=== PATIENT | male | born 1965 | race Caucasian/White ===

== ENCOUNTER → 2018-02-14 15:52 | Outpatient (CLI) | payer OTHER, SELFPAY ==
[2018-02-14 17:38] LABS: Anion Gap 10 (5-15); BUN 17 mg/dL (7-18); BUN/Creat Ratio 17.7 RATIO (10-20); Calcium,Total 9.3 mg/dL (8.5-10.1); Chloride 102 mmol/L (98-107); Creatinine, Serum 0.96 mg/dL (0.70-1.30); EST Glomerular Filtration Rate 87 mL/min (>60); Est Glom Filt Rate - Afr Amer 105 mL/min (>60); Glucose 170 mg/dL (74-106); Potassium 4.3 mmol/L (3.5-5.1); Sodium Level 140 mmol/L (136-145)
== END ==
PROVIDERS: Family Provider Family Medicine; PCP Family Medicine; Visit Provider Family Medicine
DX: I10 Essential (primary) hypertension (principal); E11.65 Type 2 diabetes mellitus with hyperglycemia
CPT/HCPCS: 36415; 80048

== ENCOUNTER 2018-08-18 21:16 | Emergency (ER) | payer OTHER, SELFPAY ==
[2018-08-18 21:18] VITALS: BP 121/70; PULSE 85; RESP 17; TEMP 36.8; O2SAT 95; BMI 25.8
--- NOTE | 2018-08-18 23:14 | EKG12_ITS ---
Test Reason : SOB Blood Pressure : / mmHG Vent. Rate : 074 BPM Atrial Rate : 074 BPM P-R Int : 172 ms QRS Dur : 094 ms QT Int : 364 ms P-R-T Axes : 064 030 069 degrees QTc Int : 404 ms Normal sinus rhythm Normal ECG Confirmed by LALY HERRON, NA ([id number]), fan mail editor MARVIN DIEGO ([id number]) on 08/20/2018 3:23:53 PM Referred By: ANALISA Confirmed By:NA RUFFIN MD
--- NOTE | 2018-08-18 23:18 | ED.RN ---
NO OLD EKGS IN MUSE
[2018-08-18] MEDS: Ipratropium/Albuterol Sulfate 3 ML AMPUL.NEB INHALATION (23:21)
--- NOTE | 2018-08-18 23:21 | RAD_ITS ---
STUDY: X-RAY CHEST REASON FOR EXAM: Male, 52 years old. Cough for a few weeks. TECHNIQUE: PA and lateral views of the chest. COMPARISON: May 31, 2017. FINDINGS: Telemetry wires overlie the chest. The lungs are clear and expanded. There is no demonstrated pleural abnormality. Normal size heart. Normal mediastinum and zay. Normal visualized pulmonary arteries. Normal visualized aortic arch and descending thoracic aorta. Normal visualized thoracic spine. Normal visualized ribs, clavicles, and shoulders. There is no demonstrated abnormality of the visualized soft tissue structures of the upper abdomen. RAD/Chest PA and Lateral IMPRESSION: No acute cardiopulmonary disease or interval change. Electronically Signed: Raheel Velazco DO at 23:34 EST Tel [phone], Service support ,
[2018-08-18] MEDS: predniSONE 20 MG Tablet 60 MG PO (23:22)
[2018-08-18 23:28] VITALS: BP 121/83; PULSE 70; RESP 18; O2SAT 99
[2018-08-18 23:34] VITALS: PULSE 80; RESP 14
--- NOTE | 2018-08-18 23:52 | ED.DCSUM_ITS ---
- ER Visit Summary Date of Service: 08/18/18 Chief Complaint: [] History of Present Illness: The patient is a 52 M cough presents to the emergency department cough. Patient had the symptoms for the past 2 weeks. He states he feels it is worsening. He had one episode of near syncope with cough. He denies any chest pain. He has had some scant sputum. He denies any fevers or chills. He denies any history of underlying lung disease. He has been exposed to multiple people with similar upper respiratory infection. He has not found anything that improved the symptoms. Physical Examination: Vital signs reviewed General: Well-nourished, well-developed Head: Normocephalic, atraumatic Eyes: Pupils equal and reactive, extraocular muscles intact Neck, supple, no lymphadenopathy Heart: Regular rate and rhythm Respiratory: No distress, wheezing throughout erally Abdomen: Soft, nontender, nondistended, no peritoneal signs Back: Nontender Extremities: Nontender, no edema, no cords Skin: Normal color no rash Neuro: Alert and oriented, no focal or lateralizing deficits Test Results: [] Emergency Department Course and Treatment: The patient presents with cough. I did obtain a chest x-ray. There is no evidence of focal infiltrative process. He did have some scant change in the left base. He was given nebulized breathing treatment and steroids. He does have improvement of his symptoms. I do feel the patient's symptoms are likely secondary to bronchitis. I would treat him with doxycycline and prednisone. He will also be given an inhaler. The patient be discharged home. Treatment Plan: [] Disposition: Discharge Impression: 1. Acute bronchitis This note was generated with [employer] dictation software. It may contain incorrect words, spelling, and punctuation that were not noted in review of the chart prior to signing ED Disposition - Plan for ED Patient: Chief Complaint: Cough Instructions: ED Upper Resp Infec Abx Tx Prescriptions: Albuterol Inhaler [Ventolin Hfa] 2 puff INHALATION Q4H PRN PRN #1 inhaler PRN Reason: Wheezing Prednisone 10 mg PO UD #33 tab Doxycycline 100 mg PO BID #20 cap Referrals: Johnathan Johnson MD [Primary Care Provider] -
[2018-08-18] MEDS: Doxycycline 100 MG CAPSULE PO (23:59)
[2018-08-19] VITALS: BP 126/79; PULSE 79; RESP 16; O2SAT 94
== END 2018-08-19 00:02 | disposition home or self-care (01) ==
LOC: ED 23:32
PROVIDERS: Emergency Provider Emergency Medicine; Family Provider Family Medicine; PCP Family Medicine
DX: J20.9 Acute bronchitis, unspecified (principal); E11.9 Type 2 diabetes mellitus without complications; Z79.84 Long term (current) use of oral hypoglycemic drugs; Z79.899 Other long term (current) drug therapy; Z87.891 Personal history of nicotine dependence
CPT/HCPCS: 71046; 93005; 94640; 99284

== ENCOUNTER → 2019-03-30 08:38 | Outpatient (CLI) | payer BC, SELFPAY ==
[2019-03-30 12:17] LABS: Absolute Lymphocyte Count 1.56 X10^3/uL (0.83-4.51); Absolute Neutrophil Count 3.3 X10^3/uL (2.0-7.7); Basophil# 0.05 X10^3/uL; Basophil% 0.9 % (0-1); Eosinophil# 0.15 X10^3/uL; Eosinophils% 2.7 % (0-5); Hematocrit 43.4 % (40-54); Hemoglobin 15.1 g/dL (13.0-16.5); Lymphocyte # 1.56 X10^3/ul (4.0); Lymphocyte % 28.4 % (19-41); Mean Corp Hgb Conc 34.8 g/dL (32-36); Mean Corpuscular Hgb 29.6 pg (27.0-32.0); Mean Corpuscular Volume 85.1 fL (80-94); Mean Platelet Vol. 10.1 fl (6.2-12.0); Monocyte# 0.43 X10^3/uL; Monocyte% 7.8 % (0-10); NRBC Flagged by Analyzer 0 % (0-5); Neutrophil # 3.28 X10^3/uL (2.7-7.7); Neutrophil % 59.8 % (47-70); Platelet Count 253 K/mm3 (150-450); RBC Distribution Width CV 12.6 % (11.6-14.6); RBC Distribution Width SD 38.5 fl (35.1-43.9); White Blood Count 5.5 K/mm3 (4.4-11.0)
[2019-03-30 12:43] LABS: Anion Gap 6 (5-15); BUN 17 mg/dL (7-18); BUN/Creat Ratio 18.3 RATIO (10-20); Calcium,Total 9.2 mg/dL (8.5-10.1); Chloride 108 mmol/L (98-107); Creatinine, Serum 0.93 mg/dL (0.70-1.30); EST Glomerular Filtration Rate 90 mL/min (>60); Est Glom Filt Rate - Afr Amer 109 mL/min (>60); Glucose 222 mg/dL (74-106); Potassium 4.3 mmol/L (3.5-5.1); Sodium Level 140 mmol/L (136-145); Thyroid Stim Hormone (TSH) 1.47 uIU/mL (0.358-3.74)
== END ==
PROVIDERS: Family Provider Family Medicine; PCP Family Medicine; Visit Provider Family Medicine
DX: I10 Essential (primary) hypertension (principal); E78.5 Hyperlipidemia, unspecified; R42 Dizziness and giddiness
CPT/HCPCS: 36415; 80048; 84443; 85025

== ENCOUNTER → 2020-06-20 08:41 | Outpatient (CLI) | payer BC, SELFPAY ==
[2020-06-20 08:13] VITALS: BMI 25.0
[2020-06-20 13:02] LABS: ALB/GLOB Ratio 1.4 RATIO (0.9-2.4); AST(SGOT) 23 U/L (15-37); Alanine Aminotransfer ALT/SGPT 53 U/L (16-61); Albumin, Serum 4.5 g/dL (3.2-5.0); Alkaline Phosphatase 76 U/L (45-117); Anion Gap 7 (5-15); BUN 21 mg/dL (7-18); BUN/Creat Ratio 22.9 RATIO (10-20); Calcium,Total 9.6 mg/dL (8.5-10.1); Chloride 109 mmol/L (98-107); Cholesterol 160 mg/dL (200); Creatinine, Serum 0.92 mg/dL (0.70-1.30); EST Glomerular Filtration Rate 90 mL/min (>60); Est Glom Filt Rate - Afr Amer 109 mL/min (>60); Globulin 3.3 g/dL (2.2-4.2); Glucose 99 mg/dL (74-106); High Density Lipoprotein 44 mg/dL; Protein, Total 7.8 g/dL (6.4-8.2); Sodium Level 141 mmol/L (136-145); Triglycerides 90 mg/dL; Very Low Density Lipoprotein 18 mg/dL (5-40)
[2020-06-20 14:28] LABS: Microalbumin,Random Urine 10.6 mg/L (NO RANGE EST.); Microalbumin:Creatinine Ratio 14.8 mg/g CRE (<30 mg/g CRE)
== END ==
PROVIDERS: PCP Family Medicine; Referring Provider Internal Medicine Endocrinology, Diabetes & Metabolism; Visit Provider Internal Medicine Endocrinology, Diabetes & Metabolism
DX: E11.9 Type 2 diabetes mellitus without complications (principal); E78.2 Mixed hyperlipidemia
CPT/HCPCS: 36415; 80053; 80061; 82043; 82570; 84443

== ENCOUNTER → 2022-10-29 | Outpatient (CLI) | payer OTHER, SELFPAY ==
[2022-10-29 12:16] LABS: Vitamin D,25 Hydroxy 47.2 ng/mL
[2022-10-29 12:48] LABS: ALB/GLOB Ratio 1.5 RATIO (0.9-2.4); AST(SGOT) 22 U/L (15-37); Alanine Aminotransfer ALT/SGPT 42 U/L (16-61); Albumin, Serum 4.6 g/dL (3.2-5.0); Alkaline Phosphatase 68 U/L (45-117); Anion Gap 11 (5-15); BUN 23 mg/dL (7-18); BUN/Creat Ratio 24.3 RATIO (10-20); Calcium,Total 9.7 mg/dL (8.5-10.1); Chloride 106 mmol/L (98-107); Cholesterol 142 mg/dL (200); Creatinine, Serum 0.94 mg/dL (0.70-1.30); EST Glomerular Filtration Rate 87 mL/min (>60); Est Glom Filt Rate - Afr Amer 105 mL/min (>60); Glucose 158 mg/dL (74-106); High Density Lipoprotein 36 mg/dL; Protein, Total 7.6 g/dL (6.4-8.2); Sodium Level 138 mmol/L (136-145); Thyroid Stim Hormone (TSH) 1.82 uIU/mL (0.358-3.74); Triglycerides 141 mg/dL; Very Low Density Lipoprotein 28 mg/dL (5-40)
== END | disposition home or self-care (01) ==
PROVIDERS: Referring Provider Internal Medicine Endocrinology, Diabetes & Metabolism; Visit Provider Internal Medicine Endocrinology, Diabetes & Metabolism
DX: E11.9 Type 2 diabetes mellitus without complications (principal); E78.2 Mixed hyperlipidemia; E55.9 Vitamin D deficiency, unspecified
CPT/HCPCS: 36415; 80053; 80061; 82306; 84443

== ENCOUNTER → 2022-10-30 | Outpatient (CLI) | payer OTHER, SELFPAY ==
[2022-10-30 12:41] LABS: Microalbumin,Random Urine 16.8 mg/L (NO RANGE EST.); Microalbumin:Creatinine Ratio 16.2 mg/g CRE (<30 mg/g CRE)
== END | disposition home or self-care (01) ==
PROVIDERS: Referring Provider Internal Medicine Endocrinology, Diabetes & Metabolism; Visit Provider Internal Medicine Endocrinology, Diabetes & Metabolism
DX: E11.9 Type 2 diabetes mellitus without complications (principal); E78.2 Mixed hyperlipidemia
CPT/HCPCS: 82043; 82570

== ENCOUNTER → 2023-11-04 | Outpatient (CLI) | payer OTHER, SELFPAY ==
[2023-11-04 13:44] LABS: ALB/GLOB Ratio 1.7 RATIO (0.9-2.4); AST(SGOT) 23 U/L (15-37); Alanine Aminotransfer ALT/SGPT 43 U/L (16-61); Albumin, Serum 4.5 g/dL (3.2-5.0); Alkaline Phosphatase 67 U/L (45-117); Anion Gap 4 (5-15); BUN 14 mg/dL (7-18); BUN/Creat Ratio 17.2 RATIO (10-20); Calcium,Total 8.7 mg/dL (8.5-10.1); Chloride 109 mmol/L (98-107); Cholesterol 145 mg/dL (200); Creatinine, Serum 0.82 mg/dL (0.70-1.30); EST Glomerular Filtration Rate 102 mL/min (>60); Est Glom Filt Rate - Afr Amer 124 mL/min (>60); Globulin 2.7 g/dL (2.2-4.2); Glucose 149 mg/dL (74-106); High Density Lipoprotein 41 mg/dL; Potassium 3.8 mmol/L (3.5-5.1); Protein, Total 7.2 g/dL (6.4-8.2); Sodium Level 141 mmol/L (136-145); Thyroid Stim Hormone (TSH) 1.78 uIU/mL (0.358-3.74); Triglycerides 72 mg/dL; Very Low Density Lipoprotein 14 mg/dL (5-40)
[2023-11-04 14:21] LABS: Absolute Neutrophil Count 3.2 X10^3/uL (2.0-7.7); Basophil# 0.05 X10^3/uL; Basophil% 0.9 % (0-1); Eosinophil# 0.16 X10^3/uL; Eosinophils% 2.8 % (0-5); Hematocrit 46.1 % (40-54); Hemoglobin 15.4 g/dL (13.0-16.5); Mean Corp Hgb Conc 33.4 g/dL (32-36); Mean Corpuscular Hgb 29.1 pg (27.0-32.0); Monocyte# 0.46 X10^3/uL; NRBC Flagged by Analyzer 0 % (0-5); Neutrophil # 3.16 X10^3/uL (2.7-7.7); Neutrophil % 54.8 % (47-70); Platelet Count 241 K/mm3 (150-450); RBC Distribution Width CV 13.3 % (11.6-14.6); RBC Distribution Width SD 41.7 fl (35.1-43.9); White Blood Count 5.8 K/mm3 (4.4-11.0)
[2023-11-04 14:52] LABS: Microalbumin,Random Urine 8.8 mg/L (NO RANGE EST.); Microalbumin:Creatinine Ratio 13.5 mg/g CRE (<30 mg/g CRE)
== END | disposition home or self-care (01) ==
LOC: BIMLAB 08:42
PROVIDERS: Nurse Practitioner Family; Referring Provider Internal Medicine Endocrinology, Diabetes & Metabolism; Visit Provider Internal Medicine Endocrinology, Diabetes & Metabolism
DX: R53.83 Other fatigue (principal); E11.9 Type 2 diabetes mellitus without complications; E78.2 Mixed hyperlipidemia; I10 Essential (primary) hypertension
CPT/HCPCS: 36415; 80053; 80061; 82043; 82570; 84443; 85025

== ENCOUNTER → 2024-05-11 | Outpatient (CLI) | payer OTHER, SELFPAY ==
[2024-05-11 12:08] LABS: Absolute Neutrophil Count 3.7 X10^3/uL (2.0-7.7); Basophil# 0.05 X10^3/uL; Basophil% 0.8 % (0-1); Eosinophil# 0.17 X10^3/uL; Eosinophils% 2.7 % (0-5); Hematocrit 46.3 % (40-54); Hemoglobin 15.5 g/dL (13.0-16.5); Lymphocyte % 28.5 % (19-41); Mean Corp Hgb Conc 33.5 g/dL (32-36); Mean Corpuscular Hgb 29.3 pg (27.0-32.0); Mean Corpuscular Volume 87.5 fL (80-94); Monocyte# 0.56 X10^3/uL; Monocyte% 8.9 % (0-10); NRBC Flagged by Analyzer 0 % (0-5); Neutrophil # 3.68 X10^3/uL (2.7-7.7); Neutrophil % 58.3 % (47-70); Platelet Count 251 K/mm3 (150-450); RBC Distribution Width CV 13.4 % (11.6-14.6); RBC Distribution Width SD 42.3 fl (35.1-43.9); Red Blood Count 5.29 M/mm3 (4.6-6.2); White Blood Count 6.3 K/mm3 (4.4-11.0)
[2024-05-11 12:55] LABS: Vitamin B12 504 pg/mL (211-911)
[2024-05-11 13:17] LABS: ALB/GLOB Ratio 1.6 RATIO (0.9-2.4); AST(SGOT) 18 U/L (15-37); Alanine Aminotransfer ALT/SGPT 42 U/L (16-61); Albumin, Serum 4.6 g/dL (3.2-5.0); Alkaline Phosphatase 85 U/L (45-117); Anion Gap 5 (5-15); BUN 13 mg/dL (7-18); BUN/Creat Ratio 15.9 RATIO (10-20); Chloride 107 mmol/L (98-107); Cholesterol 143 mg/dL (200); Creatinine, Serum 0.82 mg/dL (0.70-1.30); EST Glomerular Filtration Rate 102 mL/min (>60); Est Glom Filt Rate - Afr Amer 124 mL/min (>60); Globulin 2.8 g/dL (2.2-4.2); Glucose 126 mg/dL (74-106); High Density Lipoprotein 43 mg/dL; PSA,Total - Annual Screen 0.46 ng/mL (0.00-4.00); Potassium 4.2 mmol/L (3.5-5.1); Protein, Total 7.4 g/dL (6.4-8.2); Sodium Level 141 mmol/L (136-145); Triglycerides 196 mg/dL; Very Low Density Lipoprotein 39 mg/dL (5-40)
== END | disposition home or self-care (01) ==
LOC: BIMLAB 10:36
PROVIDERS: Internal Medicine Endocrinology, Diabetes & Metabolism; PCP Nurse Practitioner Family; Referring Provider Nurse Practitioner Family; Visit Provider Nurse Practitioner Family
DX: Z00.01 Encounter for general adult medical examination with abnormal findings (principal); Z12.5 Encounter for screening for malignant neoplasm of prostate
CPT/HCPCS: 36415; 80053; 80061; 82607; 84153; 85025; G0103

== ENCOUNTER 2024-09-29 13:48 | Emergency (ER) | payer OTHER, SELFPAY ==
[2024-09-29 13:49] VITALS: BP 193/89; PULSE 72; RESP 16; TEMP 36.6; O2SAT 97; BMI 26.4
--- NOTE | 2024-09-29 14:45 | RAD_ITS ---
PROCEDURE: HAND MIN 3 VIEWS REASON FOR EXAM: Injury TECHNIQUE: 3 view(s) of the left hand COMPARISON: None. FINDINGS: No visible fracture. No suspicious bone lesion. Normal alignment. Soft tissues are unremarkable. RAD/Hand Min 3 Views IMPRESSION: No acute osseous abnormality in the left hand Reading Location: [facility]
[2024-09-29 15:45] VITALS: PULSE 67; RESP 16; O2SAT 96
--- NOTE | 2024-09-29 15:56 | EDS_ITS ---
HPI History of Present Illness Chief Complaint: Laceration [facility] Medical History GERD (gastroesophageal reflux disease) High cholesterol Hypertension Gout Diabetes Home Medications ?Medication ?Instructions ?Recorded ?Last Taken ?Type multivitamin 1 ea PO DAILY 04/27/17 Unkno wn History Zinc PO 05/11/24 Unknown History atorvastatin 20 mg tablet 20 mg PO DAILY #90 tabs 04/14 Unknown Rx coenzyme Q10 100 mg capsule 100 mg PO QDAY 05/11/24 Un known History dapagliflozin propanediol 10 mg 10 mg PO DAILY #90 tab s 05/11/24 Unknown Rx tablet (Farxiga) glipizide 5 mg tablet, extended 5 mg PO BID #180 tabs 05/11/24 Unknown Rx release 24 hr lisinopril 40 mg tablet 40 mg PO QDAY #90 tabs 05/11 Unknown Rx metformin 500 mg 24 hr 1,000 mg (2 x 500 mg) PO BID #360 05/11/24 Unknown Rx tablet,extended release (gastric tabs
--- NOTE | 2024-09-29 15:56 | EX.ED.GENINJ ---
HPI History of Present Illness Chief Complaint: Laceration [facility] Medical History GERD (gastroesophageal reflux disease) High cholesterol Hypertension Gout Diabetes Home Medications ?Medication ?Instructions ?Recorded ?Last Taken ?Type multivitamin 1 ea PO DAILY 04/27/17 Unknown History Zinc PO 05/11/24 Unknown History atorvastatin 20 mg tablet 20 mg PO DAILY #90 tabs 05/11/24 Unknown Rx coenzyme Q10 100 mg capsule 100 mg PO QDAY 05/11/24 Unknown History dapagliflozin propanediol 10 mg 10 mg PO DAILY #90 tabs 05/11/24 Unknown Rx tablet (Farxiga) glipizide 5 mg tablet, extended 5 mg PO BID #180 tabs 05/11/24 Unknown Rx release 24 hr lisinopril 40 mg tablet 40 mg PO QDAY #90 tabs 05/11/24 Unknown Rx metformin 500 mg 24 hr 1,000 mg (2 x 500 mg) PO BID #360 05/11/24 Unknown Rx tablet,extended release (gastric tabs retention) sitagliptin phosphate 100 mg 100 mg PO DAILY #90 tabs 05/11/24 Unknown Rx tablet (Januvia) omeprazole 20 mg capsule,delayed 20 mg PO DAILY #90 caps 07/21/24 Unknown Rx release cephalexin 500 mg capsule 500 mg PO TID 3 days #9 caps 09/29/24 Unknown Rx Allergy/AdvReac Type Severity Reaction Status Date / Time bee venom protein (honey Allergy Intermediate Swelling Verified 09/29/24 13:48 bee) (bees) cobalt Allergy Intermediate rash Verified 09/29/24 13:48 nickel Allergy Intermediate rash Verified 09/29/24 13:48 Family History Mother Diabetes Hypertension High cholesterol Grandmother Diabetes Father Hypertension Kidney disease Social History Smoking Status: Former smoker quit date: 08/12/16 alcohol intake: never substance use type: does not use what type of physical activity do you participate in: none EXAM Physical Exam Const Vital Signs: 09/29/24 13:49 09/29/24 15:45 Temperature 98 F Temperature Source Temporal Pulse Rate 72 67 Respiratory Rate 16 16 Blood Pressure 193/89 H Blood Pressure Mean 123 Pulse Ox 97 96 Oxygen Delivery Method Room Air Room Air [facility] [place] Narrative Medical decision making narrative: HISTORY OF PRESENT ILLNESS: 58-year-old male presents with concern for laceration to left third finger. Notes this occurred at approximately 10:40 AM. Notes he cut it on a piece of clean steel. Notes difficulty with movement. And tingling. Denies numbness. REVIEW OF SYSTEMS: Pertinent positives: Laceration, deep range of motion, tingling Pertinent negatives: Loss of sensation PHYSICAL EXAM: Nursing triage notes reviewed, Vital signs reviewed Constitutional: please see mdm Extremities: No edema Neuro: Intact 5/5 strength with ok sign (median), intact finger abduction (ulnar) intact wrist extension (radial n). Intact sensation in the radial, ulnar, and median nerve distributions. Skin: Curvilinear approximately 2 cm laceration over the third metacarpal phalangeal joint MEDICAL DECISION MAKING: Chief Complaint: Hand laceration External records reviewed: Reviewed prior images Factors affecting care: Type 2 diabetes Consults: none [facility] Narrative: Patient was initially hypertensive otherwise afebrile and nontoxic-appearing. Exam with decreased extensor tendon function of the left third digit. I considered the following differential diagnosis: Laceration, fracture ALL IMAGES (IF OBTAINED) HAVE BEEN PERSONALLY REVIEWED AND INTERPRETED BY MYSELF. X-ray left hand was read reviewed personally so showed no evidence of obvious open fracture The patient suffered lacerations to the left third digit On exam there was no evidence of foreign bodies. There was no evidence of neurovascular injury. Patient had a normal distal vascular exam, and had intact ROM and sensation. Exam limited by pain, there was diminished extensor tendon function There is no evidence of local joint space involvement at this time. Wound care applied (irrigation and/or local cleansing solution). Laceration repair was then performed please see procedure note. The patient was given signs and symptoms warnings for infection, such as increasing pain, redness, swelling, associated heat, pus or fever. Patient was given instructions for timely follow-up for removal. Patient agreed with the plan of care Procedure: Laceration repair. The procedure was performed by myself. Indication: Wound repair Risks and benefits: risks, benefits and alternatives were discussed Consent: Consent was obtained. Wound Details: 2 cm, curvilinear, dorsal surface of the left hand, third metacarpophalangeal joint, proximal millimeter in depth, no obvious fascial disruption. No foreign bodies noted. Anesthesia: Topical let, lidocaine injected to the margin of the wound (verbal consent obtained from patient). Wound prep: Patient was prepped and draped in the usual sterile fashion. Tetanus: Updated within the last 5 years Irrigation Solution: Saline Wound Preparation: Irrigated with normal saline, cleansed with chlorhexidine The wound was explored to its base in a bloodless field. Procedure Description: Placed five 5-0 Chromic Gut sutures with good approximation. Patient tolerated the procedure well with no immediate complications Given concern for tendinous involvement I am for the patient to follow-up with our local hand surgeon within the next 24 to 48 hours if possible. Gave a short course of Keflex for antimicrobial prophylaxis. Strict return precautions were discussed. [facility] paperwork completed. The patient and/or family, caregivers express understanding. The patient and/or family, caregivers agrees with the plan. Shared decision making: I will have a discussion with the patient and or visitors regarding risk/benefits of further testing or admission. They will be made aware of of the risk/benefits inherent in this decision they will be given the opportunity to voice understanding. Total critical care time today provided was at least 0 minutes. This excludes separately billable procedures. Critical care time (if documented) is secondary to the patient having high probability of clinically significant/life threatening deterioration in the patient's condition which required my urgent intervention. Impression: 1. Left hand laceration 2. Extensor tendon disruption Dispo: Discharge home This note was generated with [employer] dictation software. It may contain incorrect words, spelling, and punctuation that were not noted in review of the chart prior to signing. Radiography Diagnostic Testing: Clinical Impression(s) from Imaging Studies Hand X-Ray 09/29/24 14:45 IMPRESSION: No acute osseous abnormality in the left hand Reading Location: [facility] Discharge Plan Triage Chief Complaint: Laceration ED Provider: Conrad Almendarez Dx/Rx/DC Orders Instructions: ED Laceration Extremity, ED Tendon Rupture, Finger Prescriptions: New cephalexin 500 mg capsule 500 mg PO TID 3 Days Qty: 9 0RF No Action coenzyme Q10 100 mg capsule 100 mg PO QDAY Zinc PO glipizide 5 mg tablet extended release 24hr 5 mg PO BID Qty: 180 3RF Farxiga 10 mg tablet 10 mg PO DAILY Qty: 90 2RF atorvastatin 20 mg tablet 20 mg PO DAILY Qty: 90 1RF lisinopril 40 mg tablet 40 mg PO QDAY Qty: 90 1RF metformin 500 mg tablet,ER reji.retention 24 hr 1,000 mg PO BID Qty: 360 1RF Januvia 100 mg tablet 100 mg PO DAILY Qty: 90 1RF multivitamin 1 EACH tablet 1 ea PO DAILY omeprazole 20 mg capsule,delayed release(DR/EC) 20 mg PO DAILY Qty: 90 1RF Stand Alone Forms: ED Work / School Excuse Primary Care Provider: Imelda Neri Referrals: Tae Vasquez MD [Med Staff - Active Staff] - Activity Restrictions/Additional Instructions: Thank you for trusting us with your care today! Please keep your wound clean and dry. Please keep it covered. Please change her dressings daily Please take Tylenol (2 pills, 650 mg), ibuprofen (2 pills, 400 mg) every 6 hours as needed for pain and fever control. Please take antibiotics as prescribed until course complete Please return to the emergency department if your symptoms change or worsen. Specifically develop redness, warmth, increasing pain, white-yellow discharge, fevers. Please follow with hand surgery (Dr. Vasquez) for further outpatient evaluation and management. Print Language: Maltese Disposition Disposition: Home, Self Care
[2024-09-29] MEDS: Lidocaine 1% (20 ml mdv) 20 ML Vial 5 ML INFILT (16:46)
[2024-09-29] MEDS: Lidocaine/Epi/Tetracaine 50 ML 1 APPLIC TOPICAL (16:46)
[2024-09-29 17:54] VITALS: BP 145/89; PULSE 69; RESP 16; O2SAT 98
[2024-09-29 18:15] VITALS: BP 134/78; PULSE 64; RESP 18; TEMP 37.1; O2SAT 99
== END 2024-09-29 18:16 | disposition home or self-care (01) ==
PROVIDERS: Emergency Provider Emergency Medicine; PCP Nurse Practitioner Family; Visit Provider Emergency Medicine
DX: S61.213A Laceration without foreign body of left middle finger without damage to nail, initial encounter (principal); E11.9 Type 2 diabetes mellitus without complications; Z87.891 Personal history of nicotine dependence; X58.XXXA Exposure to other specified factors, initial encounter
CPT/HCPCS: 12001; 73130; 99283

== ENCOUNTER 2024-10-07 12:40 | Day surgery (SDC) | payer OTHER, SELFPAY ==
[2024-10-07] VITALS (10 sets, daily range): BP systolic 137–158; BP diastolic 80–91; PULSE 69–82; RESP 16; TEMP 36.6–37.2; O2SAT 94–99; BMI 25.0
--- NOTE | 2024-10-07 13:43 | PCM.HP.STD ---
HPI - General HPI Narrative Az Gtz is a 58-year-old male with past medical history of diabetes who presents today for evaluation out of concern for left middle finger extensor tendon laceration, zone 5. This occurred on 29 September 2024 (2 days ago) when he excellently cut it on a piece of clean steel. Denies any numbness or tingling. Reports sharp severe pain in the affected extremity worsened by movements and improved with rest and elevation. He is concerned about his inability to hyperextend his left long finger. He is right-hand dominant. 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 He is not a smoker Tetanus is up-to-date. The wound was washed out in the emergency department and closed Current Encounter (DATE OF SURGERY H&P UPDATE): I saw and examined the patient this morning in pre-operative holding. We discussed risks and benefits of today's surgery and they would like to proceed. NO CHANGE in health history since last seen and evaluated. Ready to proceed with surgery. [facility] Medical History (Updated 10/06/24 @ 10:09 by Yasemin Delgado) Wears dentures Wears glasses Back pain Gastric reflux Former smoker GERD (gastroesophageal reflux disease) High cholesterol Hypertension Gout Diabetes Home Medications ?Medication ?Instructions ?Recorded ?Last Taken ?Type multivitamin 1 ea PO DAILY 04/27/17 Unknown History Zinc 30 mg PO DAILY 05/11/24 Unknown History atorvastatin 20 mg tablet 20 mg PO DAILY #90 tabs 05/11/24 Unknown Rx coenzyme Q10 100 mg capsule 100 mg PO QDAY 05/11/24 10/06/24 History dapagliflozin propanediol 10 mg 10 mg PO DAILY #90 tabs 05/11/24 10/06/24 Rx tablet (Farxiga) glipizide 5 mg tablet, extended 5 mg PO BID #180 tabs 05/11/24 Unknown Rx release 24 hr lisinopril 40 mg tablet 40 mg PO QDAY #90 tabs 05/11/24 Unknown Rx metformin 500 mg 24 hr 1,000 mg (2 x 500 mg) PO BID #360 05/11/24 Unknown Rx tablet,extended release (gastric tabs retention) sitagliptin phosphate 100 mg 100 mg PO DAILY #90 tabs 05/11/24 10/06/24 Rx tablet (Januvia) omeprazole 20 mg capsule,delayed 20 mg PO DAILY #90 caps 07/21/24 10/07/24 09:30 Rx release cholecalciferol (vitamin D3) 50 50 mcg PO DAILY 10/06/24 Unknown History mcg (2,000 unit) tablet (Vitamin D3) cephalexin 500 mg capsule 500 mg PO Q8H 5 days #15 caps 10/07/24 Unknown Rx oxycodone 5 mg tablet 5 mg PO Q12H PRN pain 5 days #10 10/07/24 Unknown Rx tabs Allergy/AdvReac Type Severity Reaction Status Date / Time bacitracin (From Neosporin Allergy Severe RASH Verified 10/07/24 13:22 ([id number])) neomycin (From Neosporin Allergy Severe RASH Verified 10/07/24 13:22 ([id number])) polymyxin B (From Neosporin Allergy Severe RASH Verified 10/07/24 13:22 ([id number])) bee venom protein (honey Allergy Intermediate Swelling Verified 10/07/24 13:22 bee) (bees) cobalt Allergy Intermediate rash Verified 10/07/24 13:22 nickel Allergy Intermediate rash Verified 10/07/24 13:22 Family History Mother Diabetes Hypertension High cholesterol Grandmother Diabetes Father Hypertension Kidney disease Surgical History (Updated 10/06/24 @ 10:09 by Yasemin Delgado) Hx of colonoscopy Hx of tonsillectomy Hx of eye surgery Hx of hand surgery Social History Smoking Status: Former smoker quit date: 08/12/16 alcohol intake: never substance use type: does not use what type of physical activity do you participate in: none Vital Signs Vital Signs Vital Signs: 10/07/24 13:24 10/07/24 13:24 Temperature 98.9 F Temperature Source Temporal Pulse Rate 76 Respiratory Rate 16 Respiratory Pattern Normal Blood Pressure 137/88 H Blood Pressure Mean 104 Blood Pressure Source Monitor Blood Pressure Position Semi-Fowlers Blood Pressure Location Right Arm Pulse Ox 94 Oxygen Delivery Method Room Air Weight Weight: 169 lb 12.095 oz Body Mass Index (BMI) 25.0 Physical Exam Narrative Left upper Extremity Inspection: Left long finger with a laceration over the MP joint on the dorsum Palpation: No induration or fluid collections Motor: Able to bend and extend all MP, PIP, and DIP joints, except he is unable to extend his long finger from neutral position consistent with a zone 5 extensor tendon laceration. Sensory: Intact to light touch on the radial and ulnar borders. Vascular: Finger tips are warm and well perfused with <2 second capillary refill. Assessment & Plan Assessment/Plan (1) Extensor tendon laceration of left hand with open wound: PLAN: Patient has an extensor digitorum communis transection at zone 5 over the MCP of the left long finger. I talked the patient extensively about the risks of surgery, including bleeding, infection, damage to surrounding structures, poor scarring, extra incisions to find the tendon ends, rerupture of the repair, need for postoperative hand therapy for extensor tendon protocol, surgical site dehiscence and wound formation, need for wound care, need for repeat operations, failure to obtain the desired result, DVT/PE, and the risks of anesthesia including , including stroke (from low blood pressure/ischemia or clot). The benefits and alternatives of this surgery were also discussed. All of their questions were answered, and they agreed to proceed with surgery. Plan for operative exploration and zone 5 extensor tendon repair. Patient placed in a volar blocking splint. We will schedule. INTERVAL H&P PLAN, DATE OF SURGERY: We will proceed with surgery today.
[2024-10-07 14:01] LABS: Bedside Glucose 94 mg/dL (74-106)
--- NOTE | 2024-10-07 14:02 | PRE.ANES_ITS ---
ASA Classification* ASA Classification ASA Classification: 2 Assessment & Plan Anesthesia* Anesthesia Assessment Anesthesia Assessment: Discussed sedation and/or anesthesia options, risks, benefits, and alternatives with patient/parents/legal guardian/POA. Questions invited. The patient/parents/legal guardian/POA seems to understand and agrees to proceed with anesthesia plan. Reviewed the physical assessment, medical history, allergy history and patient home medications list prior to surgery/procedure/anesthetic and documented any changes. Performed airway and anesthesia risk assessments. Anesthesia Type Anesthesia Type: MAC History Source History Obtained from:: Patient and Chart Anesthesia Focused Assessment* Temperature: 98.9 F Pulse Rate: 76 Blood Pressure: 137/88 Respiratory Rate: 16 Pulse Ox: 94 Oxygen Delivery Method: Room Air Airway Assessment Mouth opens: >3 cm Mallampati Score: I Teeth Condition: Dentures, Full, Lower and Upper Focused Labs Anesthesia Preop lab: CBC WBC 6.3 K/mm3 (4.4-11.0) 05/11/24 10:40 05/11/24 RBC 5.29 M/mm3 (4.6-6.2) 05/11/24 10:40 05/11/24 Hgb 15.5 g/dL (13.0-16.5) 05/11/24 10:40 05/11/24 Hct 46.3 % (40-54) 05/11/24 10:40 05/11/24 Plt Count 251 K/mm3 (150-450) 05/11/24 10:40 05/11/24 CHEMISTRY Potassium 4.2 mmol/L (3.5-5.1) 05/11/24 10:40 05/11/24 Sodium 141 mmol/L (136-145) 05/11/24 10:40 05/11/24 BUN 13 mg/dL (7-18) 05/11/24 10:40 05/11/24 Creatinine 0.82 mg/dL (0.70-1.30) 05/11/24 10:40 05/11/24 Glucose 126 mg/dL (74-106) H 05/11/24 10:40 05/11/24 POC Glucose 94 mg/dL (74-106) 10/07/24 13:30 10/07/24 TSH 1.78 uIU/mL (0.358-3.74) 11/04/23 08:42 COAG Pre-Assessment Diagnosis/Proposed Procedure Planned Operative Procedure(s): REPAIR LEFT LONG FINGER EXTENSOR TENDON Anesthesia History 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 When Was Last Pacemaker Check QUESTION #4 FULL TEXT: You/Your Family Experience fever (hyperthermia) with Anesthesia Last Oral Intake Last Oral intake: Last Oral Intake NPO since 20:00 10/07/24 13:24 Meds taken in AM with sips of Yes 10/07/24 13:24 water? 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 preparer apprentice Female No 10/06/24 10:09 HX of Motion Sickness No 10/06/24 10:09 HX of N/V After Surgery No 10/06/24 10:09 Non-Smoker Yes 10/06/24 10:09 Duration of Surgery greater No 10/06/24 10:09 than 60 minutes Number of Risk Factors 1 10/06/24 10:09 PONV Score Low Risk 10/06/24 10:09 Height & Weight Height & Weight: Anesthesia: Height & Weight Height 5 ft 9 in 10/07/24 13:24 Weight: 77 kg 10/07/24 13:24 Body Mass Index (BMI) 25.0 10/07/24 13:24 Respiratory Assessment Respiratory Assessment - stone and plate preparer apprentice: Respiratory Tract Infection Hx - stone and plate preparer apprentice Hx Respiratory Tract Infection No 10/06/24 10:09 STOP Sleep Apnea STOP Sleep Apnea - stone and plate preparer apprentice: STOP Sleep Apnea - stone and plate preparer apprentice Hx Hypertension Yes: CONTROLLED WITH MED 10/06/24 10:09 Hx Sleep Apnea No 10/06/24 10:09 CPAP No 10/06/24 10:09 BIPAP Do you snore loudly (louder No 10/06/24 10:09 than talking or can be heard Do you often feel tired/ No 10/06/24 10:09 fatigued/ sleepy during daytime? Has anyone observed you stop No 10/06/24 10:09 breathing during sleep? STOP Results Negative 10/06/24 10:09 QUESTION #5 FULL TEXT : Do you snore loudly (louder than talking or can be heard through closed doors)? 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 Specify any problems Hx of Preganancy in last 3 N/A 10/06/24 10:09 Months Nurse Filling Out Transfusion VCHRISTIN 10/06/24 10:09 & Questions: Date: 10/06/24 10/06/24 10:09 Time: 10:11 10/06/24 10:09 Patient unable to answer at this time (ie. confused, unrespo /Reproduction History /Reproductive History - stone and plate preparer apprentice: /Reproductive Hx- stone and plate preparer apprentice Hx Now Gestational Age (in weeks): EDC: Hx Hx Para Hx Section SAB Active Medications Active Medications: Current Medications Generic Name Dose Route Start Last Admin Trade Name Freq PRN Reason Stop Dose Admin Cefazolin Sodium 2 gm/ N/A 20 mls @ 400 mls/hr 10/07/24 14:30 IV 10/07/24 14:32 PREOP [facility] Medical History Wears dentures Wears glasses Back pain Gastric reflux Former smoker GERD (gastroesophageal reflux disease) High cholesterol Hypertension Gout Diabetes Home Medications ?Medication ?Instructions ?Recorded ?Last Taken ?Type multivitamin 1 ea PO DAILY 04/27/17 Unkno wn History Zinc 30 mg PO DAILY 05/11/24 Unkn own History atorvastatin 20 mg tablet 20 mg PO DAILY #90 tabs 04/14 Unknown Rx coenzyme Q10 100 mg capsule 100 mg PO QDAY 05/11/24 History dapagliflozin propanediol 10 mg 10 mg PO DAILY #90 tab s 05/11/24 10/06/24 Rx tablet (Farxiga) glipizide 5 mg tablet, extended 5 mg PO BID #180 tabs 05/11/24 Unknown Rx release 24 hr lisinopril 40 mg tablet 40 mg PO QDAY #90 tabs 05/11 Unknown Rx metformin 500 mg 24 hr 1,000 mg (2 x 500 mg) PO BID #360 05/11/24 Unknown Rx tablet,extended release (gastric tabs retention) sitagliptin phosphate 100 mg 100 mg PO DAILY #90 tabs 05/11/24 10/06/24 Rx tablet (Januvia) omeprazole 20 mg capsule,delayed 20 mg PO DAILY #90 ca ps 07/21/24 10/07/24 09:30 Rx release cholecalciferol (vitamin D3) 50 50 mcg PO DAILY Unknown History mcg (2,000 unit) tablet (Vitamin D3) cephalexin 500 mg capsule 500 mg PO Q8H 5 days #15 cap s 10/07/24 Unknown Rx oxycodone 5 mg tablet 5 mg PO Q12H PRN pain 5 days #10 10/07/24 Unknown Rx tabs Allergy/AdvReac Type Severity Reaction Status Date / Time bacitracin (From Neosporin Allergy Severe RASH Verified 10/07/24 13:22 ([id number])) neomycin (From Neosporin Allergy Severe RASH Verified 10/07/24 13:22 ([id number])) polymyxin B (From Neosporin Allergy Severe RASH Verified 10/07/24 13:22 ([id number])) bee venom protein (honey Allergy Intermediate Swelling Verified 10/07/24 13:22 bee) (bees) cobalt Allergy Intermediate rash Verified 10/07/24 13:22 nickel Allergy Intermediate rash Verified 10/07/24 13:22 Family History Mother Diabetes Hypertension High cholesterol Grandmother Diabetes Father Hypertension Kidney disease Surgical History (Updated 10/06/24 @ 10:09 by Yasemin Delgado) Hx of colonoscopy Hx of tonsillectomy Hx of eye surgery Hx of hand surgery Social History Smoking Status: Former smoker quit date: 08/12/16 alcohol intake: never substance use type: does not use what type of physical activity do you participate in: none Review of Systems (Anesthesia) ROS Narrative System reviewed and no additional complaints, except as documented. Physical Exam Const alert, oriented x3 and average body habitus Neuro oriented x3
[2024-10-07] MEDS: Cefazolin 2 GM in Syringe IV (14:25)
[2024-10-07] MEDS: Bupivacaine 0.25% 30 ML Vial (14:36)
[2024-10-07] MEDS: Lidocaine 1% (20 ml mdv) 20 ML Vial (14:37)
[2024-10-07] MEDS: Lidocaine 1% /Epi 1:100 (20ml) 20 ML Vial (14:59)
--- NOTE | 2024-10-07 15:46 | PCM.POST.ANE ---
Anesthesia: Postop Eval I Current Vital Signs Temperature: 97.8 F Pulse Rate: 77 Blood Pressure: 156/82 Respiratory Rate: 16 Pulse Ox: 97 Oxygen Delivery Method: Room Air Assessment Airway patent: Yes Spontaneous unlabored respirations: Yes Mental status: Awake and Calm nausea: No Vomiting: No Anesthesia Complication: No Fluid Hydration Crystalloid volume administer (ml): 500 Total IV fluid infused: 500 Progress Note Anesthesia document: Postop Eval 1 completed: Yes
--- NOTE | 2024-10-07 16:39 | PCM.OPRPT ---
Operative Report (Standard) Operative Information Date of Procedure: 10/07/24 Pre-Operative Diagnosis: Zone 5 left long finger extensor tendon laceration Post-Operative Diagnosis: Zone 5 left long finger extensor tendon laceration Surgery/Procedure Performed: 1) Primary repair of Zone 5 extensor tendon laceration to the left long finger (CPT: 28898) strategic partnership manager: Yes Cabinet Worker: Jaime Ochoa Tasks completed by biology laboratory assistant: Retracting Type of Anesthesia: General/Supplemental (Attempted MAC/Sedation, but patient unable to tolerate (was moving extensively) and required LMA. 30 cc of a 50/50 mixture of 1% lidocaine with 1:200,000 epinephrine and 0.25% Marcaine was used for local) RN Documented Start/Stop Times: Operation Date: 10/07/24 14:30 Case Time Into Pre-Op 10/07/24 12:50 Anesthesia Start 10/07/24 14:05 Into Room 10/07/24 14:05 Procedure Start 10/07/24 14:28 Procedure End 10/07/24 15:19 Anesthesia End 10/07/24 15:22 Out of Room 10/07/24 15:22 Into Recovery 10/07/24 15:25 Into Phase II Recovery 10/07/24 16:02 Out of Recovery 10/07/24 16:02 Procedure Start Time: 14:28 Procedure Stop Time: 15:19 Select all DRAINS/GRAFTS/IMPLANTS that apply: None Estimated Blood Loss: 5 cc Specimen collected: No Description of surgery: Indications: Patient cut the left long finger EDC on sheet-metal last week and presents today for primary repair. He understands the risk benefits and alternatives to the procedure. Procedure details: Patient was correct identified in preoperative holding and taken back to the operating room where he was administered local anesthesia (30 cc as noted above) and sedation. He was unable to tolerate the procedure without an LMA, and therefore it was converted to general anesthesia. An Esmarch was used and a tourniquet was inflated on the arm to 250 mmHg. A timeout was performed. The sutures were removed from the existing wound and the wound was washed out with 450 cc of Irrisept and copious amounts normal saline. There were no signs of infection. I was unable to identify the cut ends of the tendon at the base of the wound as it retracted distally and proximally to some degree, and therefore curvilinear incisions were made on the distal radial side of the laceration and the proximal ulnar side of the laceration making a C shaped incision. Care was taken to preserve cutaneous nerve branches this dissection was taken down with tenotomy scissors. The cut ends of the tendon were found and veins were cauterized as needed with bipolar electrocautery. The tendons were easily approximated and were healthy appearing. With a 4 oh looped FiberWire, a Tsuge-Vasquez technique was performed for tendon repair which incorporated 4 core strands. A running epitendinous 6-0 Prolene was then applied as well. There is good cascade following the repair and no gapping. The tourniquet was let down and hemostasis was again obtained with bipolar electrocautery. The wound was closed with interrupted horizontal mattress 3-0 nylon suture. A volar blocking splint was applied with plaster. Patient tolerated the procedure well and was awakened and taken the PACU in stable condition. Postoperative plan: Patient will follow-up in 1 week with me for wound check and also in 1 week for hand therapy (initiate extensor tendon protocol). He will get a custom made splint. In the meantime, splint remains (keep dry and keep in place). No using left upper extremity. Surgical Findings: Cut ends of the tendon, minimal retraction. Good cascade following repair (finger hyperextended when I bend wrist like the other fingers). Complications Complications: No Admit VTE Documentation VTE Present on Admission: No VTE Mechan Device Prophylaxis: SCD's
--- NOTE | 2024-10-07 17:39 | PCM.POSTANE2 ---
Anesthesia Postop Eval I Sum Postop Eval Completion status Anesthesia document: Postop Eval 1 completed: Yes Anesthesia Postop Eval I Summary Anesthesia Postop Eval I Summary: Anesthesia Postop Eval I: Assessment Summary Airway patent Yes 10/07/24 15:47 Spontaneous unlabored Yes 10/07/24 15:47 respirations Mental status Awake,Calm 10/07/24 15:47 nausea No 10/07/24 15:47 Vomiting No 10/07/24 15:47 Anesthesia Postop Eval I: Fluid Summary Crystalloid volume administer 500 10/07/24 15:47 (ml) Colloids volume administered ( ml) Blood Product volume administered (ml) Total IV fluid infused 500 10/07/24 15:47 Anesthesia Postop Eval I: Summary Notes Anesthesia Complication No 10/07/24 15:47 Anesthesia Complication Comment: Post-operative progress note Anesthesia: Postop Eval II Evaluation Mental status: Awake and Calm Pain Level: 4 nausea: No Vomiting: No Complications Anesthesia Complication: No
== END 2024-10-07 16:58 | disposition home or self-care (01) ==
LOC: SDC 12:44 → AC 12:46
PROVIDERS: PCP Nurse Practitioner Family; Referring Provider Surgery Plastic and Reconstructive Surgery; Visit Provider Surgery Plastic and Reconstructive Surgery
PROC: (CPT 26410; principal; 2024-10-07 14:15)
DX: S66.323A Laceration of extensor muscle, fascia and tendon of left middle finger at wrist and hand level, initial encounter (principal); E11.9 Type 2 diabetes mellitus without complications; I10 Essential (primary) hypertension; K21.9 Gastro-esophageal reflux disease without esophagitis; E78.00 Pure hypercholesterolemia, unspecified; Z79.84 Long term (current) use of oral hypoglycemic drugs; Z79.899 Other long term (current) drug therapy; Z87.891 Personal history of nicotine dependence; X58.XXXA Exposure to other specified factors, initial encounter
CPT/HCPCS: 26410; 01810; 82962; A4216; J2405

== ENCOUNTER → 2024-11-10 | Outpatient (CLI) | payer OTHER, SELFPAY ==
--- NOTE | 2024-11-10 09:52 | RAD_ITS ---
EXAM: XR Right Shoulder Complete, 2 or More Views CLINICAL INDICATION: PAIN IN RIGHT SHOULDER TECHNIQUE: Two or more views of the right shoulder. COMPARISON: No relevant prior studies available. FINDINGS: BONES/JOINTS: Unremarkable. No acute fracture. No dislocation. SOFT TISSUES: Unremarkable. RAD/Shoulder min 2 Views IMPRESSION: No acute fracture. Reading Location: [facility]
--- NOTE | 2024-11-10 09:52 | RAD_ITS ---
PROCEDURE: CERV SPINE 4 OR 5 VIEWS 11/10/2024 REASON FOR EXAM: CERVICALGIA TECHNIQUE: 3 views of the cervical spine. COMPARISON: None FINDINGS: Cervical cervical lordosis is maintained. Atlantoaxial interval is within normal limits. Vertebral body heights are within normal limits. Multilevel loss of disc space throughout the cervical spine, most prominent at C6-C7. Multilevel degenerative changes, including uncinate hypertrophy, endplate remodeling most prominent in the lower cervical spine. Multilevel bilateral neural foraminal narrowing, more prominent on the right. No acute fracture or traumatic subluxation. Precervical soft tissue planes are maintained. Imaged lung apices are clear. RAD/Cerv Spine 4 or 5 Views IMPRESSION: No acute fracture or dislocation. Multilevel degenerative changes, most prominent in the lower cervical spine. Reading Location: [facility]
--- NOTE | 2024-11-10 12:55 | CT_ITS ---
PROCEDURE: LOW DOSE CT LUNG SCREENING 11/10/2024 REASON FOR EXAM: LUNG CANCER SCREENING Former smoker. Patient was a 20 pack-year smoker. TECHNIQUE: Low Dose CT Lung screening without contrast. Coronal and Sagittal reconstruction series were provided. One or more dose reduction techniques were used (e.g., Automated exposure control, adjustment of the mA and/or kV according to patient size, use of iterative reconstruction technique). REFERENCE LINK: [place] Lung-RADS RADIATION DOSE SUMMARY: CTDlvol: 3.02 mGy DLP: 109.1 mGycm COMPARISON: None. FINDINGS: PULMONARY NODULES: (Only nodules >3mm are reported) Nodules described below are on series 1 unless otherwise specified. Pulmonary Nodules: No suspicious pulmonary nodule is seen. Hardware:None Lymph Nodes:No evidence of lymphadenopathy. Heart and Vasculature: Coronary Artery Calcifications: Present Lungs and Airways: Mild emphysematous changes are present. Pleura:Unremarkable Upper Abdomen:Unremarkable Bones:Degenerative changes of the thoracic spine. CT/Low Dose CT Lung Screening IMPRESSION: No suspicious nodules seen. Coronary artery calcification (CAC) is is present Lung-RADS Category: 2 BENIGN (BASED ON IMAGING FEATURES OR INDOLENT BEHAVIOR). RECOMMEND 12-MONTH SCREENING LDCT. Other Significant Findings: None. Reading Location: [facility]
== END | disposition home or self-care (01) ==
LOC: CT 09:51
PROVIDERS: PCP Nurse Practitioner Family; Referring Provider Nurse Practitioner Family; Visit Provider Nurse Practitioner Family
DX: Z12.2 Encounter for screening for malignant neoplasm of respiratory organs (principal); Z87.891 Personal history of nicotine dependence; M54.2 Cervicalgia; M25.511 Pain in right shoulder
CPT/HCPCS: 71271; 72050; 73030

== ENCOUNTER → 2024-12-23 | Outpatient (CLI) | payer OTHER, SELFPAY ==
--- NOTE | 2024-12-23 14:20 | MRI_ITS ---
PROCEDURE: SPINE CERVICAL (ROUTINE) 12/23/2024 REASON FOR EXAM: RADICULOPATHY Right shoulder pain. TECHNIQUE: MRI cervical spine without contrast. Multiplanar and multisequence images were obtained without IV contrast administration. COMPARISON: None x-rays November 10, 2024 FINDINGS: Vertebrae: Cervical vertebral body heights are preserved. No acute fracture or osseous contusion. No evidence of discitis or osteomyelitis Alignment: No significant spondylolisthesis. Spinal Cord: Cervical spinal cord demonstrates normal signal characteristics. No evidence of cervical spinal cord edema, hemorrhage or myelomalacia. Motion artifact limits detail. C2-3: C2-3 intervertebral disc demonstrates normal morphology with no significant spinal canal or neural foraminal stenosis. C3-4: C3-4 mild diffuse disc bulge and bilateral uncovertebral osteophytes. Mild spinal canal stenosis without mass effect on the cervical spinal cord. Mild [id number]-ry-mctidtev bilateral neural foraminal stenosis. C4-5: C4-5 diffuse disc bulge. Usti-xz-[id number] spinal canal stenosis without mass effect on the spinal cord. Minimal bilateral neural foraminal stenosis. C5-6: C5-6 disc bulge and uncovertebral osteophytes. Moderate spinal canal stenosis. Minimal mass effect on the left ventral cervical spinal cord. Moderate bilateral neural foraminal stenosis C6-7: C6-7 diffuse disc bulge and bilateral uncovertebral osteophytes. Moderate spinal canal stenosis. Disc bulge contacts the ventral cervical spinal cord without mass effect on the spinal cord. Moderate bilateral neural foraminal stenosis C7-T1: T1 intervertebral disc demonstrates normal morphology with no significant spinal canal or neural foraminal stenosis Incompletely visualized right paracentral to lateral focal disc protrusion at T1-2. Consider MRI of the thoracic spine. MRI/Spine Cervical (Routine) IMPRESSION: 1. Multilevel degenerative changes with varying degrees of spinal canal and ne ural foraminal stenosis as detailed above. 2. Moderate bilateral neural foraminal stenosis at C4-5 and C5-6. 3. Moderate spinal canal stenosis at C5-6 and C6-7. Minimal mass effect on th e left ventral cervical spinal cord at C5-6. 4. Incompletely visualized right paracentral to lateral focal disc protrusion at T1-2, consider MRI thoracic spine as warranted. [facility]
== END | disposition home or self-care (01) ==
LOC: OPMRI 13:52
PROVIDERS: PCP Nurse Practitioner Family; Referring Provider Anesthesiology Pain Medicine; Visit Provider Anesthesiology Pain Medicine
DX: M54.12 Radiculopathy, cervical region (principal)
CPT/HCPCS: 72141

== ENCOUNTER 2024-12-31 08:30 | Outpatient (RCR) | payer OTHER, SELFPAY ==
--- NOTE | 2024-10-14 07:26 | HP.OTEVAL ---
Patient's Visit Information Visit Information Visit Information: MONIE ROJAS is a 59 year old M, referred to Occupational Therapy by Dr. Tae Vasquez MD, with a diagnosis of extensor tendon laceration left LF. Date of Evaluation: 10/13/24 Occupational Therapist: Candelaria Mota, ELLY/Jorge, CHT Subjective Subjective: This 59 year old male was seen for OT eval with dx of extensor tendon laceration- DOI was on 09/29/24 pt underwent zone 5 extensor tendon repair on 10/07/24. 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 left wrist is moving well short arch motion today Quick DASH-Disab of Arm,Shoulder& Hand Quick DASH Score: 83.9275 Goals Goal:100% adherence to protocol: Yes Comment: Zone 5 extensor tendon guidelines Goal:Daily scar massage when approriate: Yes Goal:ROM equal to unaffected hand: Yes Goal:Slitter And Rewinder/Pinch strength at least 75% of unaffected hand: Yes Comment: will not initiate until week 6 Goal:No pain with affected hand use: Yes Goal:Full use of affected hand in daily activities including work: Yes Goal:Decrease scar hypersensitivity: Yes Other Goal: orthosis use: pt will demo understanding of orthosis use and precautions by end of 1st session. Rehabilitation General Assessment: pt arrives 6 days s/p zone 5 extensor tendon repair of left hand. is with pt. she has concerns pt will try to do more than he should. incision looks good, min swelling- pt denies tingling or numbness. pt demo need for OT services 2-3x week for 6-8 weeks to return pt to PLOF. Today a custom orthosis was nina. to allow for healing and protection of tendon repair- pt demo IND donning and doffing of orthosis ( therapist also made one for night use) pt was ed. in hook fist ROM - therapist will provide ext ex and support short arch wrist ROM ex. pt and demo understanding and agree to POC. Rehabilitation Potential: Good Anticipated Interventions Anticipated Interventions: Early Active Motion, A/AAROM/PROM, Edema Control, Scar Care, Orthoses, Joint Protection/Energy Conservation, Ergonomic Education, Education re assistive Equipment, Education re Diagnosis, Caregiver Training and Home Program Visit Plan Frequency: 1-2x /Week Duration: 3 Months TEXT: Thank you for the opportunity to evaluate your patient. For Medicare and Medicare HMO plans, please review the plan of care and approve it. It will need to be FAXED BACK to us at [phone] for Medicare purposes. Please let me know if there are questions or concerns regarding this plan of care. Physician Signature: Date:
--- NOTE | 2024-11-19 08:59 | HP.OTREVAL ---
Re-Evaluation Intro: Dr. Tae Vasquez MD, It has been my pleasure to treat MONIE ROJAS over the last 12 visits for extensor tendon laceration left LF. Please see the progress note below for an update on the occupational therapy plan of care! Subjective Subjective: pt arrives 6 weeks and 1 days s/p from zone 5 extensor tendon repair- pt states stiff this am. states end of the day. Objective Objective/Function: pt demo good motion of MPJ left MP 0/80* right is 0/85 PIP 90 pt does demo slight scar adhesion but feel this will improve now he is out of orthosis. Plan Plan Frequency: 1-2x /Week Duration: 3 Months Visits in this POC: 24 Plan: D/C splint today initiate light manager of case with daily tasks Goals Goals Patient Goals: Regain Mobility and Use Hand/Wrist/Arm Normally Again Goal:100% adherence to protocol: Yes Goal:Daily scar massage when approriate: Yes Goal:ROM equal to unaffected hand: Yes Goal:Communications Administrator/Pinch strength at least 75% of unaffected hand: Yes Goal:No pain with affected hand use: Yes Goal:Full use of affected hand in daily activities including work: Yes Goal:Decrease scar hypersensitivity: Yes Other Goal: orthosis use: pt will demo understanding of orthosis use and precautions by end of 1st session. Anticipated Interventions Anticipated Interventions Anticipated Interventions: Early Active Motion, A/AAROM/PROM, Edema Control, Scar Care, Orthoses, Joint Protection/Energy Conservation, Ergonomic Education, Education re assistive Equipment, Education re Diagnosis, Caregiver Training and Home Program Re-Evaluation Ending Re-evaluation ending: Please do not hesitate to contact me at [phone] by phone or if you have questions or concerns regarding this new plan of care! Sincerely, Candelaria Mota, JACKR/L, CHT
--- NOTE | 2024-12-31 08:59 | HP.OTDCSUM_ITS ---
Discharge Summary D/C Summary: It has been my pleasure to treat NIGEL ROJAS under orders from Dr. Tae Vasquez MD, for the diagnosis of extensor tendon laceration left LF for a total of 4 visit(s). Please see the following information for a summary of their discharge status. Overall Improvement % Improvement: 95 Objective Objective/Function: slight Pip extensor lag with DIP hyper ext MCP flexion 75 PIP 0/105 DIP +5/ 60 left radio time salesperson strength 50# right is 75# left lateral pinch 20# left tripod pinch 16# Goals Patient Goals: Regain Mobility and Use Hand/Wrist/Arm Normally Again Goal:100% adherence to protocol: Yes Goal:Daily scar massage when approriate: Yes Goal:ROM equal to unaffected hand: Yes Goal:Accounts Receivable Processor/Pinch strength at least 75% of unaffected hand: Yes Goal:No pain with affected hand use: Yes Goal:Full use of affected hand in daily activities including work: Yes Goal:Decrease scar hypersensitivity: Yes Other Goal: orthosis use: pt will demo understanding of orthosis use and precautions by end of 1st session. Plan Plan: light use strengthening D/C Information Discharge Comments: pt has done well in therapy and has met OT goals at this time. pt d/c with instructions to continue with end range of motion to decrease stiffens in AM and strengthen as tolerated d/c sentence: If there are questions or concerns regarding this patient's occupational therapy, please fell free to call me at [phone]. Thank you for the referral of this patient. Sincerely, Candelaria Mota, OTR/L, CHT
--- NOTE | 2025-01-05 09:51 | HP.OTDCSUM_ITS ---
Discharge Summary D/C Summary: It has been my pleasure to treat NIGEL ROJAS under orders from Dr. Tae Vasquez MD, for the diagnosis of extensor tendon laceration left LF for a total of 4 visit(s). Please see the following information for a summary of their discharge status. Overall Improvement % Improvement: 95 Objective Objective/Function: slight Pip extensor lag with DIP hyper ext MCP flexion 75 PIP 0/105 DIP +5/ 60 left radiologist strength 50# right is 75# left lateral pinch 20# left tripod pinch 16# Goals Patient Goals: Regain Mobility and Use Hand/Wrist/Arm Normally Again Goal:100% adherence to protocol: Yes Goal:Daily scar massage when approriate: Yes Goal:ROM equal to unaffected hand: Yes Goal:Javascript Application Developer/Pinch strength at least 75% of unaffected hand: Yes Goal:No pain with affected hand use: Yes Goal:Full use of affected hand in daily activities including work: Yes Goal:Decrease scar hypersensitivity: Yes Other Goal: orthosis use: pt will demo understanding of orthosis use and precautions by end of 1st session. Plan Plan: light use strengthening D/C Information Discharge Comments: pt has done well in therapy and has met OT goals at this time. pt d/c with instructions to continue with end range of motion to decrease stiffens in AM and strengthen as tolerated d/c sentence: If there are questions or concerns regarding this patient's occupational therapy, please fell free to call me at [phone]. Thank you for the referral of this patient. Sincerely, Candelaria Mota, OTR/L, CHT
== END 2024-12-31 19:00 | disposition home or self-care (01) ==
LOC: OT 08:30
PROVIDERS: PCP Nurse Practitioner Family; Referring Provider Surgery Plastic and Reconstructive Surgery; Visit Provider Surgery Plastic and Reconstructive Surgery
DX: S66.32 Laceration of extensor muscle, fascia and tendon of other and unspecified finger at wrist and hand level (principal)
CPT/HCPCS: 97035; 97110; 97140; 97166; 97530; 97760

== ENCOUNTER → 2025-03-19 | Outpatient (CLI) | payer OTHER, SELFPAY ==
--- NOTE | 2025-03-19 11:35 | RAD_ITS ---
PROCEDURE: CERV SPINE 2 OR 3 VIEWS 03/19/2025 REASON FOR EXAM: NECK PAIN TECHNIQUE: CERV SPINE 2 OR 3 VIEWS COMPARISON: Prior MRI of the cervical spine dated December 28, 2024. FINDINGS: Vertebrae: Vertebral heights are well-maintained. disc spaces: Moderate degree of disc space narrowing at the C5-C6 and C6-C7 levels. Alignment: No abnormal movement on the flexion-extension views. soft tissues: Unremarkable Other: RAD/Cerv Spine 2 or 3 Views IMPRESSION: Moderate degree of disc space narrowing at the C5-C6 and C6-C7 levels. Disclaimer: Reading Location: [id number]
--- OUTSIDE RECORDS SUMMARY | 2025-03-19 12:38 | XMS RPT_ITS | CCD ---
Author Organization [facility] Care Team Providers Care Humanities Department Chair Name Role Phone Ramez HERRON, Keon Morgan Unavailable Dr. Johnathan Johnson Referring Provider Dr. Lester Quinn Attending Provider Dr. Lester Quinn Attending Provider Daron DRESS OPERATOR-C, Imelda Primary Care Provider Dr. Conrad Almendarez DO Attending Provider Dr. Conrad Almendarez DO Emergency Provider Daron DRESS OPERATOR-C, Imelda Referring Provider Dr. Tae Vasquez MD Attending Provider Dr. Tae Vasquez MD Referring Provider Dr. Tae Vasquez MD Other Provider Charisma DRESS OPERATOR-C, Zaria Attending Provider Charisma DRESS OPERATOR-C, Zaria Referring Provider Dr. Lester Quinn MD Attending Provider Unavailable Primary Care Provider Unavailchristiana Chase DRESS OPERATOR-C, Luz E Attending Provider Grace HERRON, Dr. Shya Attending Provider Dr. Laurita Edwards MD Referring Provider Daron, Imelda Primary Care Unavailable Charisma DRESS OPERATOR, Zaria Attending Unavailable Charisma DRESS OPERATOR, Zaria Referring Unavailable Daron, Imelda Primary Care Unavailable Laurita Edwards Referring Unavailable Laurita Edwards Attending Unavailable Daron, Imelda Primary Care Unavailable Conrad Almendarez Attending Unavailable Daron, Imelda Primary Care Unavailable Siska, Tae Referring Unavailable Siska, Tae Attending Unavailable Daron, Imelda Primary Care Unavailable Charisma DRESS OPERATOR, Zaria Attending Unavailable Charisma DRESS OPERATOR, Zaria Referring Unavailable Daron, Imelda Primary Care Unavailable Daron, Imelda Referring Unavailable Lester Quinn Attending Unavailable Daron, Imelda Primary Care Unavailable Siska, Tae Consulting Unavailable Siska, Tae Referring Unavailable Siska, Tae Attending Unavailable Daron, Imelda Primary Care Unavailable Draon, Imelda Referring Unavailable Siska, Tae Attending Unavailable Daron, Imelda Primary Care Unavailable Daron, Imelda Referring Unavailable Siska, Tae Attending Unavailable Daron, Imelda Primary Care Unavailable Daron, Imelda Referring Unavailable Salvatore DRESS OPERATOR, Luz Vergara Attending Unavailabl e Daron, Imelda Primary Care Unavailable Daron, Imelda Referring Unavailable Siska, Tae Attending Unavailable Daron, Imelda Primary Care Unavailable Daron, Imelda Referring Unavailable Siska, Tae Attending Unavailable KaiLester Attending Unavailable Daron, Imelda Primary Care Unavailable Siska, Tae Referring Unavailable Siska, Tae Attending Unavailable Daron, Imelda Attending Unavailable Daron, Imelda Primary Care Unavailable Daron, Imelda Referring Unavailable Allergies Allergy Classification Reported Allergen(s) Allergy Type Date of Onset Reaction(s) Facility (6 sources) [place] [facility] 10-29-2022 [facility] (6 sources) nickel Drug Allergy 10-29-2022 [facility] (3 sources) Bacitracin Drug Allergy 11-16-2024 [facility] (3 sources) Neomycin Drug Allergy 11-16-2024 [facility] (3 sources) Polymyxin B Drug Allergy 11-16-2024 [facility] (3 sources) bee venom protein (honey bee) Allergy to substance 11-16-2024 Swelling [facility] (1 source) Bacitracin Drug Allergy 12-31-2024 [facility] (1 source) [place] [facility] 12-31-2024 [facility] (1 source) Neomycin Drug Allergy 12-31-2024 [facility] (1 source) nickel Drug Allergy 12-31-2024 [facility] (1 source) polymyxin B Drug allergy (disorder) 12-31-2024 [facility] (1 source) bee venom protein (honey bee) Drug allergy (disorder) 12-31-2024 [facility] Rep[facility] Medications Current Medications Medication Drug Class(es) Dates Sig (Normalized) Sig (Original) cholecalciferol 0.05 mg oral tablet (3 sources) Vitamin D Start: 10-06-2024 take 1 tablet by mouth once daily Cholecalciferol (Vitamin D3) (Vitamin D3) 50 mcg (2,000 unit) tablet Active 50 ug PO DAILY October 06, 2024 1:00am lisinopril 40 mg oral tablet (20 sources) Angiotensin Converting Enzyme Inhibitor Start: 05-11-2024 End: 11-16-2024 take 1 tablet by mouth once daily Lisinopril 40 mg tablet Active 40 mg PO daily November 16, 2024 8:14am Start: 11-04-2023 End: 05-11-2024 take 1 tablet by mouth once daily Lisinopril 20 mg tablet Discontinued 20 mg PO DAILY April 27, 2024 1:12pm May 11, 2024 10:10am Start: 05-30-2017 End: 11-04-2023 take 1 tablet by mouth once daily Lisinopril 5 mg tablet Discontinued 5 mg PO DAILY October 11, 2023 1:13pm November 04, 2023 8:14am Multivitamin 1 EACH tablet (3 sources) Start: 04-27-2017 Multivitamin 1 EACH tablet Active 1 NMA PO DAILY April 27, 2017 12:00am Multivitamin preparation (3 sources) Start: 04-27-2017 Multivitamin Active 1 EACH PO DAILY April 27, 2017 12:00am naproxen 500 mg oral tablet (2 sources) Nonsteroidal Anti-inflammatory Drug Start: 11-19-2024 take 1 tablet by mouth twice daily Naproxen 500 mg tablet Active 500 mg PO TWICE A DAY November 19, 2024 12:00am oxyCODONE hydrochloride 5 mg oral tablet (3 sources) Opioid Agonist Start: 10-07-2024 take 1 tablet by mouth every twelve hours as needed for pain Oxycodone 5 mg tablet Active 5 mg PO Q12H as needed for pain 10 5 October 07, 2024 ubidecarenone 100 mg oral capsule (3 sources) Start: 05-11-2024 take 10 capsules by mouth once daily Coenzyme Q10 100 mg capsule Active 100 mg PO daily May 11, 2024 12:00am Zinc (3 sources) Start: 05-11-2024 take 30 mg by mouth once daily Zinc Active 30 mg PO DAILY May 11, 2024 12:00am Completed/Discontinued Medications Medication Drug Class(es) Dates Sig (Normalized) Sig (Original) [id number] actuat albuterol 0.09 mg/actuat metered dose inhaler (6 sources) beta2-Adrenergic Agonist Start: 08-18-2018 End: 06-20-2020 Albuterol Sulfate 1 INHALER inhaler Discontinued 2 NMA INHALATION EVERY 4 HOURS NEEDED as needed for Wheezing August 18, 2018 1:00am June 20, 2020 9:32am Start: 08-18-2018 End: 06-20-2020 take 1 puff(s) by inhalation every four hours as needed Albuterol Sulfate Discontinued 2 PUFF INHALATION EVERY 4 HOURS NEEDED August 18, 2018 1:00am June 20, 2020 9:32am atorvastatin 20 mg oral tablet (20 sources) HMG-CoA Reductase Inhibitor Start: 06-20-2020 End: 11-27-2024 take 1 tablet by mouth once daily Atorvastatin 20 mg tablet Discontinued 20 mg PO DAILY April 16, 2023 7:36am November 04, 2023 8:15am Start: 10-09-2019 End: 06-20-2020 Atorvastatin 80 mg tablet Discontinued 200 mg PO DAILY October 09, 2019 1:00am June 20, 2020 9:33am Start: 10-09-2019 End: 06-20-2020 take 200 mg by mouth once daily Atorvastatin Discontinued 200 MG PO DAILY October 09, 2019 1:00am June 20, 2020 9:33am cephalexin 500 mg oral capsule (6 sources) Cephalosporin Antibacterial Start: 10-07-2024 End: 11-19-2024 take 1 capsule by mouth every eight hours Cephalexin 500 mg capsule Discontinued 500 mg PO Q8H 15 5 October 07, 2024 1:00am November 19, 2024 9:48am Start: 09-29-2024 End: 10-06-2024 take 1 capsule by mouth three times daily Cephalexin 500 mg capsule Discontinued 500 mg PO THREE TIMES A DAY 9 3 September 29, 2024 1:00am October 06, 2024 11:03am dapagliflozin 10 mg oral tablet (20 sources) Sodium-Glucose Cotransporter 2 Inhibitor Start: 07-21-2021 End: 11-16-2024 take 1 tablet by mouth once daily Dapagliflozin Propanediol (Farxiga) 10 mg tablet Discontinued 10 mg PO DAILY February 21, 2024 12:49pm May 11, 2024 10:11am doxycycline monohydrate 100 mg oral capsule (6 sources) Tetracycline-class Drug Start: 08-18-2018 End: 12-14-2019 take 1 capsule by mouth twice daily Doxycycline Monohydrate 100 MG capsule Discontinued 100 mg PO TWICE A DAY August 18, 2018 1:00am December 14, 2019 3:47pm ertugliflozin 15 mg oral tablet (20 sources) Start: 10-09-2019 End: 07-21-2021 take 1 tablet by mouth once daily in the morning Ertugliflozin (Steglatro) 15 mg tablet Discontinued 15 mg PO EVERY MORNING November 10, 2020 12:36pm April 24, 2021 8:52am glipiZIDE er 5 mg 24 hr extended release oral tablet (20 sources) Sulfonylurea Start: 05-11-2024 End: 11-16-2024 take 1 tablet by mouth twice daily Glipizide 5 mg tablet extended release 24hr Discontinued 5 mg PO TWICE A DAY May 11, 2024 10:09am November 16, 2024 8:21am Start: 10-29-2022 End: 05-11-2024 take 1 tablet by mouth once daily Glipizide 5 mg tablet extended release 24hr Discontinued 5 mg PO DAILY April 16, 2023 7:36am May 06, 2023 8:22am Start: 06-20-2020 End: 06-20-2020 take 1 tablet by mouth once daily Glipizide 2.5 mg tablet extended release 24hr Discontinued 10 mg PO DAILY June 20, 2020 9:34am June 20, 2020 9:35am Start: 06-20-2020 End: 06-20-2020 take 10 mg by mouth once daily Glipizide Discontinued 10 MG PO DAILY June 20, 2020 9:34am June 20, 2020 9:35am Start: 06-20-2020 End: 10-29-2022 take 1 tablet by mouth once daily Glipizide 10 mg tablet Discontinued 10 mg PO DAILY July 08, 2022 7:35pm October 29, 2022 8:22am Start: 10-09-2019 End: 06-20-2020 take 1 tablet by mouth twice daily Glipizide 2.5 mg tablet extended release 24hr Discontinued 10 mg PO TWICE A DAY 180 April 14, 2020 9:59am June 20, 2020 9:34am Start: 10-09-2019 End: 06-20-2020 take 10 mg by mouth twice daily Glipizide Discontinued 10 MG PO TWICE A DAY 180 April 14, 2020 9:59am June 20, 2020 9:34am Start: 04-27-2017 End: 10-09-2019 take 1 tablet by mouth once daily Glipizide 2.5 MG tablet extended release 24hr Discontinued 2.5 mg PO DAILY April 27, 2017 12:00am October 09, 2019 2:35pm modified 24 hr metFORMIN hydrochloride 500 mg extended release oral tablet (20 sources) Biguanide Start: 12-12-2020 End: 11-16-2024 take 1 tablet by mouth twice daily Metformin 500 mg tablet,ER reji.retention 24 hr Discontinued 1000 mg PO TWICE A DAY 360 October 11, 2023 1:14pm November 04, 2023 8:15am Start: 06-20-2020 End: 12-12-2020 take 1 tablet by mouth once daily Metformin 500 mg tablet,ER reji.retention 24 hr Discontinued 500 mg PO DAILY 90 September 22, 2020 2:11pm December 12, 2020 9:46am Start: 04-27-2017 End: 06-20-2020 take 1 tablet by mouth twice daily Metformin 500 mg tablet,ER reji.retention 24 hr Discontinued 500 mg PO TWICE A DAY 60 March 07, 2020 4:30pm June 20, 2020 9:36am Drug Treatment Unknown - unknown (2 sources) No information available. omeprazole 20 mg delayed release oral capsule (20 sources) Proton Pump Inhibitor Start: 7 End: 5 take 1 capsule by mouth once daily Omeprazole 20 mg capsule,delayed release(DR/EC) Discontinued 20 mg PO DAILY July 21, 2024 8:32am November 16, 2024 8:21am pravastatin sodium 20 mg oral tablet (6 sources) HMG-CoA Reductase Inhibitor Start: 7 End: 0 take 1 tablet by mouth at bedtime Pravastatin 20 MG tablet Discontinued 20 mg PO AT BEDTIME April 27, 2017 12:00am October 09, 2019 2:34pm predniSONE 10 mg oral tablet (12 sources) Start: 1 End: 1 Prednisone 10 mg tablet Discontinued 0 PO daily October 29, 2020 12:00am April 24, 2021 8:50am 4 tabs for 3 days, then 3 tabs for 3 days, then 2 tabs for 3 days, then 1 tab for 3 days PO QDAY; administer with food or milk Start: 08-18-2018 End: 06-20-2020 take 4 tablets by mouth once daily, then take 3 tablets by mouth once daily, then take 2 tablets by mouth once daily, then take 1 tablet by mouth once daily, then take 1 tablet by mouth every other day Prednisone 10 MG tablet Discontinued 10 mg PO DIRECTED August 18, 2018 1:00am June 20, 2020 9:32am Take 4 tablets daily for 3 days, then 3 daily for 3 days, then 2 daily for 3 days, then 1 a day for 3 days then 1 QOD for 3 doses. SITagliptin 100 mg oral tablet (20 sources) Dipeptidyl Peptidase 4 Inhibitor Start: 10-29-2020 End: 12-12-2020 take 1 tablet by mouth once daily Sitagliptin Phosphate (Januvia) 25 mg tablet Discontinued 25 mg PO DAILY October 29, 2020 12:00am December 12, 2020 9:44am Start: 10-09-2019 End: 11-16-2024 take 1 tablet by mouth once daily Sitagliptin Phosphate (Januvia) 100 mg tablet Discontinued 100 mg PO DAILY July 08, 2022 7:35pm October 29, 2022 8:23am Problems Problem Classification Problem Date Documented Da te Episodic/Chronic Diabetes mellitus with complications (1 source) Type 2 diabetes mellitus with diabetic polyneuropathy; Translations: [Type 2 diabetes mellitus with diabetic polyneuropathy] Onset: 11-16-2024 Chronic Diabetes mellitus without complication (12 sources) Diabetes mellitus; Translations: [Type 2 diabetes mellitus without complications] 10-29-2022 Chronic Disorders of lipid metabolism (12 sources) Mixed hyperlipidemia; Translations: [Mixed hyperlipidemia] 10-09-2019 Chronic Essential hypertension (8 sources) Hypertensive disorder; Translations: [Essential (primary) hypertension] 11-04-2023 Chronic Open wounds of extremities (20 sources) Laceration of tendon of left hand; Translations: [Laceration of other specified muscles, fascia and tendons at wrist and hand level, left hand, initial encounter] Onset: 10-15-2024 10-01-2024 Episodic Comment on above: Left long finger zon e 5 Other screening for suspected conditions (not mental disorders or infectious disease) (13 sources) Patient encounter status; Translations: [Encounter for screening for malignant neoplasm of colon] Onset: 12-09-2024 05-31-2017 Episodic Screening and history of mental health and substance abuse codes (7 sources) Tobacco use and exposure - finding; Translations: [Personal history of nicotine dependence] Onset: 12-09-2024 11-10-2024 Episodic Spondylosis; intervertebral disc disorders; other back problems (1 source) Radiculopathy, cervical region; Translations: [Radiculopathy, cervical region] Onset: 12-29-2024 Episodic Results Test Name Value Interpretation Reference Range Facility OT D/C Summaryon 01-05-2025 OT D/C Summary [facility] [address] [place] [address] / REHABILITATION SERVICES DISCHARGE SUMMARY MR#: [id number] Acct: [id number] Name: NIGEL GTZ Rep #: [id number] : 1965 59 From: Candelaria Mota OTR/L, CHT Referring Dr.: Dr. Tae Vasquez MD Status: REG RCR Eval Date: Discharge Date: Discharge Summary D/C Summary: It has been my pleasure to treat NIGEL GTZ under orders from Dr. Tae Vasquez MD, for the diagnosis of extensor tendon laceration left LF for a total of 4 visit(s). Please see the following information for a summary of their discharge status. Overall Improvement % Improvement: 95 Objective Objective/Function: slight Pip extensor lag with DIP hyper ext MCP flexion 75 PIP 0/105 DIP +5/ 60 left ash collector strength 50# right is 75# left lateral pinch 20# left tripod pinch 16# Goals Patient Goals: Regain Mobility and Use Hand/Wrist/Arm Normally Again Goal:100% adherence to protocol: Yes Goal:Daily scar massage when approriate: Yes Goal:ROM equal to unaffected hand: Yes Goal:Clearing Inspector/Pinch strength at least 75% of unaffected hand: Yes Goal:No pain with affected hand use: Yes Goal:Full use of affected hand in daily activities including work: Yes Goal:Decrease scar hypersensitivity: Yes Other Goal: orthosis use: pt will demo understanding of orthosis use and precautions by end of 1st session. Plan Plan: light use strengthening D/C Information Discharge Comments: pt has done well in therapy and has met OT goals at this time. pt d/c with instructions to continue with end range of motion to decrease stiffens in AM and strengthen as t olerated d/c sentence: If there are questions or concerns regarding this patient's occupational therapy, please fell free to call me at [phone]. Thank you for the referral of this patient. Sincerely, ELLY Arechiga/Jorge, CHT 01/05/25 0952 CC: DRESS OPERATOR-C Imleda Neri; Dr. Tae Vasquez MD MK Signed Normal [facility] OT D/C Summaryon 12-31-2024 OT D/C Summary [facility] [address] [place] [address] [address] [place] [address] / REHABILITATION SERVICES DISCHARGE SUMMARY MR#: [id number] Acct: [id number] Name: NIGEL GTZ Rep #: [id number] : 1965 59 From: Candelaria SANABRIA/Jorge, CHT Referring Dr.: Dr. Tae Vasquez MD Status: REG RCR Eval Date: Discharge Date: Discharge Summary D/C Summary: It has been my pleasure to treat NIGEL GTZ under orders from Dr. Tae Vasquez MD, for the diagnosis of extensor tendon laceration left LF for a total of 4 visit(s). Please see the following information for a summary of their discharge status. Overall Improvement % Improvement: 95 Objective Objective/Function: slight Pip extensor lag with DIP hyper ext MCP flexion 75 PIP 0/105 DIP +5/ 60 left ash collector strength 50# right is 75# left lateral pinch 20# left tripod pinch 16# Goals Patient Goals: Regain Mobility and Use Hand/Wrist/Arm Normally Again Goal:100% adherence to protocol: Yes Goal:Daily scar massage when approriate: Yes Goal:ROM equal to unaffected hand: Yes Goal:Clearing Inspector/Pinch strength at least 75% of unaffected hand: Yes Goal:No pain with affected hand use: Yes Goal:Full use of affected hand in daily activities including work: Yes Goal:Decrease scar hypersensitivity: Yes Other Goal: orthosis use: pt will demo understanding of orthosis use and precautions by end of 1st session. Plan Plan: light use strengthening D/C Information Discharge Comments: pt has done well in therapy and has met OT goals at this time. pt d/c with instructions to continue with end range of motion to decrease stiffens in AM and strengthen as t olerated d/c sentence: If there are questions or concerns regarding this patient's occupational therapy, please fell free to call me at [phone]. Thank you for the referral of this patient. Sincerely, Candelaria Mota, OTR/L, CHT 12/31/24 0859 CC: DRESS OPERATORPhani Neri; Dr. Tae Vasquez MD MK Signed Normal [facility] Plastic Surgery Visit Report on 12-31-2024 Plastic Surgery Visit Report [facility] Plastic Reconstructive Surgery [address], [address] [place] [address] OFFICE VISIT Date of Service: 12/31/24 MR#: [id number] Acct: [id number] Name: NIGEL GTZ Rep #: [id number] : 1965 Provider: Dr. Tae Vasquez MD Age/Sex: 59/M Location: [facility] Status: Signed Intake Vital Signs 3 11/19/24 09:46 12/31/24 11:07 Height 5 ft 9 in 5 ft 9 in BP 110/69 107/67 Blood Pressure Location Lt brachial Rt brachial Position Sitting Sitting Respiration 18 18 Pulse 75 70 Temp 99.2 F H 98.4 F Temp Source Temporal Temporal Pulse Oximetry (%) 95 94 Oxygen Delivery Method room air room air Intake Visit Reasons: 6 W FU Chief Complaint: follow up Accompanied by: Is patient in pain?: No Allergies bacitracin (From Neosporin ([id number])) Allergy (Severe, Verified 12/31/24 11:08) RASH neomycin (From Neosporin ([id number]-ywd-nemwh)) Allergy (Severe, Verified 12/31/24 11:08) RASH polymyxin B (From Neosporin ([id number]-[id number]-[id number])) Allergy (Severe, Verified 12/31/24 11:08) RASH bee venom protein (honey bee) (bees) Allergy (Intermediate, Verified 12/31/24 11:08) Swelling cobalt Allergy (Intermediate, Verified 12/31/24 11:08) rash nickel Allergy (Intermediate, Verified 12/31/24 11:08) rash Medications 3 ???Medication ???Instructions ???Recorded ???Confirmed ???Type multivitamin 1 ea PO DAILY 04/27/17 11/19/24 Hi story Zinc 30 mg PO DAILY 05/11/24 11/19/24 H istory coenzyme Q10 100 mg capsule 100 mg PO QDAY 05/11/24 11/19/24 H istory cholecalciferol (vitamin D3) 50 50 mcg PO DAILY 10/06/24 11/19/24 History mcg (2,000 unit) tablet (Vitamin D3) oxycodone 5 mg tablet 5 mg PO Q12H PRN pain 5 days #10 0 10/07/24 11/19/24 Rx tabs dapagliflozin propanediol 10 mg 10 mg PO DAILY #90 tabs 11/16/24 0 11/19/24 Rx tablet (Farxiga) glipizide 5 mg tablet, extended 5 mg PO BID #180 tabs 11/16/2406/05 Rx release 24 hr lisinopril 40 mg tablet 40 mg PO QDAY #90 tabs 11/16/24 Rx metformin 500 mg 24 hr 1,000 mg (2 x 500 mg) PO BID #360 11/16/24 11/19/24 Rx tablet,extended release (gastric tabs retention) omeprazole 20 mg capsule,delayed 20 mg PO DAILY #90 caps 11/16/24 0 11/19/24 Rx release sitagliptin phosphate 100 mg 100 mg PO DAILY #90 tabs 11/16/24 11/19/24 Rx tablet (Januvia) naproxen 500 mg tablet 500 mg PO BID 11/19/24 11/19/24 Hi story atorvastatin 20 mg tablet 20 mg PO DAILY #90 tabs 11/27/24 Rx Nurse's Note: pt here with for follow up left hand extensor tendon laceration, pt reports doing well Subjective Details: Patient is doing well. He has minimal discomfort. Patient completed OT and reports that he has normal range of motion and no longer has any boutonniere deformity He is happy with the result and anxious to go back to work Objective Details: Left hand: Incision is healed. No erythema or clinical signs of infection. No boutonniere deformity He is able to make a loose fist. He is able to hyperextend the long finger from neutral position. Full range of motion of the hand, 5 out of 5 ash collector strength. He has no numbness on the dorsum of the long finger. Coding Level of Care Code Global Post Op Diagnoses Extensor tendon laceration of left hand with open wound S66.822A; S61.402A [facility] Medical History History of tobacco use Encounter for screening for malignant neoplasm of lung Wears dentures Wears glasses Back pain Gastric reflux Former smoker GERD (gastroesophageal reflux disease) High cholesterol Hypertension Gout Diabetes Surgical History Hx of colonoscopy Hx of tonsillectomy Hx of eye surgery Hx of hand surgery Family History Mother Diabetes Hypertension High cholesterol Grandmother Diabetes Father Hypertension Kidney disease Social History Smoking Status: Former smoker (Quit 10/2016) quit date: 08/12/16 alcohol intake: never substance use type: does not use what type of physical activity do you participate in: none Assessment and Plan (No Qualifiers) Assessment and Plan (1) Extensor tendon laceration of left hand with open wound: Status: Acute Comment: Left long finger zone 5 Plan: Expected course 3 months out Okay to return to work Patient happy with the plan Follow-up as needed 12/31/24 180 Date Tae Vasquez MD Cosigner Signature: Date (if applicable) CC: Normal [facility] Magnetic resonance imaging r eportOrdered By: Ricci Samayoa on 12-28-2024 Study report [facility] Imaging Services [address] [place] [address] Spine Cervical (Routine) MR#: [id number] Acct: [id number] Name: NIGEL GTZ Rep #: [id number] : 1965 M 59 From: Jan Samayoa MD PCP: Imelda Neri NP-Sara Status: REG CLI Study:Spine Cervical (Routine) Date of Exam: 12/23/24 Exam# [id number] Ordering Dr: Chandu Edwards MD PROCEDURE: SPINE CERVICAL (ROUTINE) 12/23/2024 REASON FOR EXAM: RADICULOPATHY Right shoulder pain. TECHNIQUE: MRI cervical spine without contrast. Multiplanar and multisequence images were obtained without IV contrast administration. COMPARISON: None x-rays November 10, 2024 FINDINGS: Vertebrae: Cervical vertebral body heights are preserved. No acute fracture or osseous contusion. No evidence of discitis or osteomyelitis Alignment: No significant spondylolisthesis. Spinal Cord: Cervical spinal cord demonstrates normal signal characteristics. No evidence of cervical spinal cord edema, hemorrhage or myelomalacia. Motion artifact limits detail. C2-3: C2-3 intervertebral disc demonstrates normal morphology with no significant spinal canal or neural foraminal stenosis. C3-4: C3-4 mild diffuse disc bulge and bilateral uncovertebral osteophytes. Mild spinal canal stenosis without mass effect on the cervical spinal cord. Mild gepw-du-ojjajaux bilateral neural foraminal stenosis. C4-5: C4-5 diffuse disc bulge. [id number]-dy-mprezlhv spinal canal stenosis without mass effect on the spinal cord. Minimal bilateral neural foraminal stenosis. C5-6: C5-6 disc bulge and uncovertebral osteophytes. Moderate spinal canal stenosis. Minimal mass effect on the left ventral cervical spinal cord. Moderate bilateral neural foraminal stenosis C6-7: C6-7 diffuse disc bulge and bilateral uncovertebral osteophytes. Moderatespinal canal stenosis. Disc bulge contacts the ventral cervical spinal cord without mass effect on the spinal cord. Moderate bilateral neural foraminal stenosis C7-T1: T1 intervertebral disc demonstrates normal morphology with no significantspinal canal or neural foraminal stenosis Incompletely visualized right paracentral to lateral focal disc protrusion at T1-2. Consider MRI of the thoracic spine. MRI/Spine Cervical (Routine) IMPRESSION: 1. Multilevel degenerative changes with varying degrees of spinal canal and neural foraminal stenosis as detailed above. 2. Moderate bilateral neural foraminal stenosis at C4-5 and C5-6. 3. Moderate spinal canal stenosis at C5-6 and C6-7. Minimal mass effect on theleft ventral cervical spinal cord at C5-6. 4. Incompletely visualized right paracentral to lateral focal disc protrusion at T1-2, consider MRI thoracic spine as warranted. Reading Location: [facility] CC: DRESS OPERATOR-C Imelda Neri; Dr. Laurita Edwards MD ~ Anesthesiology Tech: Signed [facility] Spine Cervical (Routine)on 0 12-23-2024 Spine Cervical (Routine) [facility] Imaging Services [address] [place] [address] [id number] Spine Cervical (Routine) MR#: [id number] Acct: [id number] Name: NIGEL GTZ Rep #: [id number] : 1965 M 59 From: Ricci Samayoa MD PCP: REMINGTON Dexter Status: REG CLI Study: Spine Cervical (Routine) Date of Exam: Exam# [id number] Ordering Dr: Laurita Edwards MD PROCEDURE: SPINE CERVICAL (ROUTINE) 12/23/2024 REASON FOR EXAM: RADICULOPATHY Right shoulder pain. TECHNIQUE: MRI cervical spine without contrast. Multiplanar and multisequence images were obtained without IV contrast administration. COMPARISON: None x-rays November 10, 2024 FINDINGS: Vertebrae: Cervical vertebral body heights are preserved. No acute fracture or osseous contusion. No evidence of discitis or osteomyelitis Alignment: No significant spondylolisthesis. Spinal Cord: Cervical spinal cord demonstrates normal signal characteristics. No evidence of cervical spinal cord edema, hemorrhage or myelomalacia. Motion artifact limits detail. C2-3: C2-3 intervertebral disc demonstrates normal morphology with no significant spinal canal or neural foraminal stenosis. C3-4: C3-4 mild diffuse disc bulge and bilateral uncovertebral osteophytes. Mild spinal canal stenosis without mass effect on the cervical spinal cord. Mild gltb-vz-lifgdgur bilateral neural foraminal stenosis. C4-5: C4-5 diffuse disc bulge. Pssk-wc-lwwqhvjh spinal canal stenosis without mass effect on the spinal cord. Minimal bilateral neural foraminal stenosis. C5-6: C5-6 disc bulge and uncovertebral osteophytes. Moderate spinal canal stenosis. Minimal mass effect on the left ventral cervical spinal cord. Moderate bilateral neural foraminal stenosis C6-7: C6-7 diffuse disc bulge and bilateral uncovertebral osteophytes. Moderate spinal canal stenosis. Disc bulge contacts the ventral cervical spinal cord without mass effect on the spinal cord. Moderate bilateral neural foraminal stenosis C7-T1: T1 intervertebral disc demonstrates normal morphology with no significant spinal canal or neural foraminal stenosis Incompletely visualized right paracentral to lateral focal disc protrusion at T1-2. Consider MRI of the thoracic spine. MRI/Spine Cervical (Routine) IMPRESSION: 1. Multilevel degenerative changes with varying degrees of spinal canal and neural foraminal stenosis as detailed above. 2. Moderate bilateral neural foraminal stenosis at C4-5 and C5-6. 3. Moderate spinal canal stenosis at C5-6 and C6-7. Minimal mass effect on the left ventral cervical spinal cord at C5-6. 4. Incompletely visualized right paracentral to lateral focal disc protrusion at T1-2, consider MRI thoracic spine as warranted. Reading Location: [facility] CC: REMINGTON Neri; Dr. Laurita Edwards MD Anesthesiology Tech: Signed [facility]RISTOPHER GT[facility] ([id number]) 1965 M Date Time Provider Department 12/21/24 BRENDA MUHAMMAD During your visit today, we recorded the following information about you: Natalie Arriaga 12/21/2024 12:31 PM Signed Patient is calling for he had a stent placed in his eye in 2004 and is asking what type of stent was used. Patient is due to have an MRI, and he needs to make sure the stent is okay for him to have the MRI. Patient can be contacted at the following number, . FV: None LV: PRE-OPERATIVE ASSESSMENT (Internal Medicine) Surgeon: Dr. Muhammad Type of surgery: optic nerve sheath decompression left eye Patient scheduled for surgery on 12-20-04. Diagnosis:papilledema BP 110/70 Pulse 64 Temp 98.6 Temp Src: Oral Ht 5' 8 (1.727m) Wt 155 lbs (70.308 kg) Body Mass Index is 23.57 kg/(m2). Patient presents with: Pre-Op Exam MEDICATIONS AND ALLERGIES REVIEWED. LATEX ALLERGY: no HISTORY: none PATIENT CAN PERFORM THE FOLLOWING: Do heavy work around the house, such as scrubbing floors or lifting or moving heavy furniture (8.00 METs) FUNCTIONAL CLASS ASSIGNMENT: excellent functional capacity REVIEW OF SYSTEMS CLINICAL RESEARCH TECH: no history of stroke, TIAs, or seizures reported. RESP: denies dyspnea, cough, asthma, bronchitis, emphysema, and URI < 2 weeks ago. CARD: patient denies any dyspnea, recent OK, angina, or valvular disease, no DVT or PE GI: GERD occasionally, well controlled with pepcid prn, patient denies any history of PUD, liver problems or ETOH abuse : No history of disease. RENAL: no history of renal insufficiency. ENDO: no history of diabetes, no history of thyroid problems, no history of steroid use HEME: patient denies bleeding, bruising easily, no history of anemia and no history of prior transfusion PSYCHIATRIC: denies history of psychiatric illness ANESTHESIA COMPLICATIONS: no reported complications PAST SURGICAL HISTORY: S/P tonsillectomy and adenoidectomy - at age 64 year old s/p extensive R hand tendon repair d/t injury - 1988 PHYSICAL EXAM: Blood pressure 110/70, pulse 64, temperature 98.6, temperature source Oral, height 5' 8 (1.73 m), weight 155 lbs (70.3 kg). GENERAL: healthy, alert, no distress, cooperative SKIN: Skin color, texture, turgor normal. No rashes or lesions. HEENT: PERRL, EOMI JVD: no jugulovenous distention, no carotid bruits, carotid pulse normal contour CARDIAC: normal S1 and S2; no rubs, murmurs, or gallops LUNGS: Lungs clear to auscultation. Good diaphragmatic excursion. ABDOMEN: Abdomen soft, non-tender. BS normal. No masses or organomegaly. EXTREMITIES: Extremities normal. No deformities, edema, clubbing or skin discoloration. NEURO: Gait normal. Reflexes normal and symmetric. Sensation grossly intact., Cranial nerves II-XII intact PULSES: 2+ radial, 2+ carotid : not examined/not indicated. EKG: NSR (62 bpm) not ectopy or acute ischemic changes IMPRESSION: Cristopher Gtz is a 39 year old male. History: There is no pertinent medical history Patient has no clinical predictors of increased perioperative cardiovascular risk. Patient is scheduled for a low/intermediate-risk procedure. Functional Class: excellent functional capacity RECOMMENDATIONS: Patient was instructed on the following: To Stop NSAID's 7 days before surgery. To Stop ASA 10 - 14 days before surgery. I recommend the following: Patient at acceptable cardiac risk for surgery. MD Bart Rebolledo Danita 12/23/2024 9:17 AM Signed Spoke to [facility] with with the MRI dept. and relayed the following message. Contacted the patient and left the following message on his VM. Brenda Muhammad, DO You19 hours ago (1:47 PM) Yes You Brenda Muhammad, DO20 hours ago (12:38 PM) DJ So is it safe to says he is okay to have the MRI? Brenda Muhammad, DO YouYester (7:59 AM) I don't use a stent for an ONSD Allergies As of Date: 12/21/2024 (No Known Allergies) Date Reviewed: 12/19/2004 Reviewed by: - Reviewed Reason for Visit: Patient Question [7659] Problem List As Of Date: 12/21/2024 (None) Encounter Status:Closed by NATALIE ARRIAGA on 12/23/24 [facility] Plastic Surgery Visit Report on 11-19-2024 Plastic Surgery Visit Report [facility] Plastic Reconstructive Surgery [address], [address] [place] [address] OFFICE VISIT Date of Service: 11/19/24 MR#: [id number] Acct: [id number] Name: AZ GTZ Rep #: [id number] : 1965 Provider: REMINGTON randolph Age/Sex: 59/M Location: [facility] Status: Signed Pt seen evaluated w/NAHUN. I personally interviewed exam the pt. I was involved in all aspects of pt's orders, interpretation of results treatment Intake Vital Signs 3 10/07/24 13:24 11/16/24 07:58 11/19/24 09:46 Height 5 ft 9 in 5 ft 9 in 5 ft 9 in Weight: 175 lb 2 oz BMI 25.8 BP 136/85 H 110/69 Blood Pressure Location Rt brachial Lt brachial Position Sitting Sitting Respiration 18 Pulse 80 75 Pulse Source Monitor Temp 99.2 F H Temp Source Temporal Pulse Oximetry (%) 97 95 Oxygen Delivery Method room air room air Intake Visit Reasons: 1 M FU [facility] Chief Complaint: follow up Accompanied by: Is patient in pain?: No Allergies bacitracin (From Neosporin (qhi-nje-xqfbo)) Allergy (Severe, Verified 11/19/24 09:47) RASH neomycin (From Neosporin (zwi-lua-lgdav)) Allergy (Severe, Verified 11/19/24 09:47) RASH polymyxin B (From Neosporin (gbj-rng-yqwrf)) Allergy (Severe, Verified 11/19/24 09:47) RASH bee venom protein (honey bee) (bees) Allergy (Intermediate, Verified 11/19/24 09:47) Swelling cobalt Allergy (Intermediate, Verified 11/19/24 09:47) rash nickel Allergy (Intermediate, Verified 11/19/24 09:47) rash Medications 3 ???Medication ???Instructions ???Recorded ???Confirmed ???Type multivitamin 1 ea PO DAILY 04/27/17 11/19/24 Hi story Zinc 30 mg PO DAILY 05/11/24 11/19/24 H istory atorvastatin 20 mg tablet 20 mg PO DAILY #90 tabs 05/11/24 0 11/19/24 Rx coenzyme Q10 100 mg capsule 100 mg PO QDAY 05/11/24 11/19/24 H istory cholecalciferol (vitamin D3) 50 50 mcg PO DAILY 10/06/24 11/19/24 History mcg (2,000 unit) tablet (Vitamin D3) oxycodone 5 mg tablet 5 mg PO Q12H PRN pain 5 days #10 0 10/07/24 11/19/24 Rx tabs dapagliflozin propanediol 10 mg 10 mg PO DAILY #90 tabs 11/16/24 0 11/19/24 Rx tablet (Farxiga) glipizide 5 mg tablet, extended 5 mg PO BID #180 tabs 11/16/2406/05 Rx release 24 hr lisinopril 40 mg tablet 40 mg PO QDAY #90 tabs 11/16/24 Rx metformin 500 mg 24 hr 1,000 mg (2 x 500 mg) PO BID #360 11/16/24 11/19/24 Rx tablet,extended release (gastric tabs retention) omeprazole 20 mg capsule,delayed 20 mg PO DAILY #90 caps 11/16/24 0 11/19/24 Rx release sitagliptin phosphate 100 mg 100 mg PO DAILY #90 tabs 11/16/24 11/19/24 Rx tablet (Januvia) naproxen 500 mg tablet 500 mg PO BID 11/19/24 11/19/24 Hi story Nurse's Note: pt here with post op, no issues Subjective Details: Patient is doing well. He has minimal discomfort. He has been going to OT twice a week. He was approved for 18 visits through 11/20/24 and he has 12 thus far. He has been doing well with his therapy and exercises at home. As of today, he may remove his splint unless he is having discomfort. Objective Details: Left hand: Incision is healed. No erythema or clinical signs of infection. He is able to make a loose fist. He is able to hyperextend the long finger from neutral position. He has no numbness on the dorsum of the long finger. Coding Level of Care Code Global Post Op Diagnoses Extensor tendon laceration of left hand with open wound S66.822A; S61.402A [facility] Medical History History of tobacco use Encounter for screening for malignant neoplasm of lung Wears dentures Wears glasses Back pain Gastric reflux Former smoker GERD (gastroesophageal reflux disease) High cholesterol Hypertension Gout Diabetes Surgical History Hx of colonoscopy Hx of tonsillectomy Hx of eye surgery Hx of hand surgery Family History Mother Diabetes Hypertension High cholesterol Grandmother Diabetes Father Hypertension Kidney disease Social History Smoking Status: Former smoker (Quit 10/2016) quit date: 08/12/16 alcohol intake: never substance use type: does not use what type of physical activity do you participate in: none Assessment and Plan (No Qualifiers) Assessment and Plan (1) Extensor tendon laceration of left hand with open wound: Status: Acute Comment: Left long finger zone 5 Plan: He is doing well. Continue extensor tendon protocol with occupational therapy. We will apply for an additional 6 weeks of OT through [facility]. No lifting with left hand except with OT instruct (more content not included)... Normal [facility] Re-Evalution OTon 11-19-2024 Re-Evalution OT [facility] Occupational Therapy [facility] [address] [place] [address]. [address] [place] [address] / REEVALUATION / MEDICARE RECERTIFICATION OCCUPATIONAL THERAPY MR#: [id number] Acct: [id number] Name: AZ GTZ Rep #: [id number] : 1965 59 From: Candelaria Mota OTR/L, CHT Referring Dr.: Dr. Tae Vasquez MD Status: REG RCR Insurance: [facility] Eval Date: SELF PAY INSURANCE Re-Evaluation Intro: Dr. Tae Vasquez MD, It has been my pleasure to treat AZ GTZ over the last 12 visits for extensor tendon laceration left LF. Please see the progress note below for an update on the occupational therapy plan of care! Subjective Subjective: pt arrives 6 weeks and 1 days s/p from zone 5 extensor tendon repair- pt states stiff this am. states end of the day. Objective Objective/Function: pt demo good motion of MPJ left MP 0/80* right is 0/85 PIP 90 pt does demo slight scar adhesion but feel this will improve now he is out of orthosis. Plan Plan Frequency: 1-2x /Week Duration: 3 Months Visits in this POC: 24 Plan: D/C splint today initiate light ash collector with daily tasks Goals Goals Patient Goals: Regain Mobility and Use Hand/Wrist/Arm Normally Again Goal:100% adherence to protocol: Yes Goal:Daily scar massage when approriate: Yes Goal:ROM equal to unaffected hand: Yes Goal:Clearing Inspector/Pinch strength at least 75% of unaffected hand: Yes Goal:No pain with affected hand use: Yes Goal:Full use of affected hand in daily activities including work: Yes Goal:Decrease scar hypersensitivity: Yes Other Goal: orthosis use: pt will demo understanding of orthosis use and precautions by end of 1st session. Anticipated Interventions Anticipated Interventions Anticipated Interventions: Early Active Motion, A/AAROM/PROM, Edema Control, Scar Care, Orthoses, Joint Protection/Energy Conservation, Ergonomic Education, Education re assistive Equipment, Education re Diagnosis, Caregiver Training and Home Program Re-Evaluation Ending Re-evaluation ending: Please do not hesitate to contact me at [phone] by phone or if you have questions or concerns regarding this new plan of care! Sincerely, Candelaria Mota, OTR/L, CHT 11/19/24 0859 CC: REMINGTON Neri; Dr. Tae Vasquez MD MK Signed For Medicare only, by signing this I certify the plan of care. Physicians Signature Date Normal [facility] Endocrinology Visit Reporton 11-16-2024 Endocrinology Visit Report [facility] [address] [place] [address] OFFICE VISIT Date of Service: 11/16/24 MR#: [id number] Acct: [id number] Name: AZ GTZ Rep #: [id number] : 1965 Provider: Cathy Strickland Age/Sex: 59/M Location: [facility] [place] Status: Signed Intake Vital Signs 05/11/24 09:41 11/10/24 12:27 11/16/24 07:58 Height 6 ft 5 ft 9 in 5 ft 9 in Weight: 175 lb 2 oz BMI 25.8 BP 136/85 H Blood Pressure Location Rt brachial Position Sitting Pulse 80 Pulse Source Monitor Pulse Oximetry (%) 97 Oxygen Delivery Method room air Intake Visit Reasons: 6 M FU Chief Complaint: Diabetes Is patient in pain?: No Allergies bacitracin (From Neosporin (end-hbi-frtch)) Allergy (Severe, Verified 11/16/24 08:03) RASH neomycin (From Neosporin (ipx-zor-vlooq)) Allergy (Severe, Verified 11/16/24 08:03) RASH polymyxin B (From Neosporin (neo-uzz-jelxu)) Allergy (Severe, Verified 11/16/24 08:03) RASH bee venom protein (honey bee) (bees) Allergy (Intermediate, Verified 11/16/24 08:03) Swelling cobalt Allergy (Intermediate, Verified 11/16/24 08:03) rash nickel Allergy (Intermediate, Verified 11/16/24 08:03) rash Medications ???Medication ???Instructions ???Recorded ???Confirmed ???Type multivitamin 1 ea PO DAILY 04/27/17 11/16/24 Hi story Zinc 30 mg PO DAILY 05/11/24 11/16/24 H istory atorvastatin 20 mg tablet 20 mg PO DAILY #90 tabs 05/11/24 0 11/16/24 Rx coenzyme Q10 100 mg capsule 100 mg PO QDAY 05/11/24 11/16/24 H istory cholecalciferol (vitamin D3) 50 50 mcg PO DAILY 10/06/24 11/16/24 History mcg (2,000 unit) tablet (Vitamin D3) cephalexin 500 mg capsule 500 mg PO Q8H 5 days #15 caps 09/1311/16/24 Rx oxycodone 5 mg tablet 5 mg PO Q12H PRN pain 5 days #10 0 10/07/24 11/16/24 Rx tabs dapagliflozin propanediol 10 mg 10 mg PO DAILY #90 tabs 11/16/24 0 11/16/24 Rx tablet (Farxiga) glipizide 5 mg tablet, extended 5 mg PO BID #180 tabs 11/16/2403/05 Rx release 24 hr lisinopril 40 mg tablet 40 mg PO QDAY #90 tabs 11/16/24 Rx metformin 500 mg 24 hr 1,000 mg (2 x 500 mg) PO BID #360 11/16/24 11/16/24 Rx tablet,extended release (gastric tabs retention) omeprazole 20 mg capsule,delayed 20 mg PO DAILY #90 caps 11/16/24 0 11/16/24 Rx release sitagliptin phosphate 100 mg 100 mg PO DAILY #90 tabs 11/16/24 11/16/24 Rx tablet (Januvia) [facility] Medical History History of tobacco use Encounter for screening for malignant neoplasm of lung Wears dentures Wears glasses Back pain Gastric reflux Former smoker GERD (gastroesophageal reflux disease) High cholesterol Hypertension Gout Diabetes Surgical History Hx of colonoscopy Hx of tonsillectomy Hx of eye surgery Hx of hand surgery Family History Mother Diabetes Hypertension High cholesterol Grandmother Diabetes Father Hypertension Kidney disease Social History Smoking Status: Former smoker (Quit 10/2016) quit date: 08/12/16 alcohol intake: never substance use type: does not use what type of physical activity do you participate in: none HPI HPI Chief Complaint: Diabetes Details: AZ GTZ, is a 59 M who presents to the office today for follow up A1C is 6.9% He is taking Farxiga, glipizide, metformin and Januvia. He is on statin and BECKA. He cut a tendon on his left hand at work. He reports joint pain, he is being evaluated for that. ROS Const Constitutional: No fatigue, weight change or change in appetite Eyes Eyes: No change in vision ENT ENT: Positive for neck pain; No dizziness/vertigo or difficulty swallowing Cardio Cardiology: No chest pain at rest, chest pain with exertion, shortness of breath or palpitations Musc Musculoskeletal: Positive for joint pain, myalgias and neck pain; No abnormal gait, numbness or tingling Neuro Neurology: No abnormal gait, memory loss, numbness or tingling Psych Psychiatric: No change in appetite, No memory loss and No Thoughts of harming yourself/Others Resp Respiratory: No cough, chest congestion or shortness of breath Gastro GI: No abdominal pain, constipation, diarrhea or difficulty swallowing Genitourinary Male: No burning urination Skin Skin: No itchy eyes or wounds Endo Endocrine: No fatigue or weight change Aller/Imm Allergy/Immunologic: No itchy eyes Exam Const General: cooperative, healthy appearing, comfortable, no acute distress, well developed and not cushingoid Nutritional Appearance: well nourished Orientation: alert, (more content not included)... Normal [facility] Laboratory - Hematology and Cell countsOrdered By: Lester Quinn on 11-16-2024 HbA1c (Bld) [Mass fraction] 6.9 % High 4.2-6.3 [facility] Cerv Spine 4 or 5 Viewson Cerv Spine 4 or 5 Views [facility] Imaging Services [address] [place], [place] [address] Cerv Spine 4 or 5 Views MR#: [id number] Acct: [id number] Name: AZ GTZ Rep #: [id number] : 1965 M 59 From: Dieter vergara MD PCP: REMINGTON Dexter Status: REG CLI Study: Cerv Spine 4 or 5 Views Date of Exam: 11/10/24 Exam# [id number] Ordering Dr: Imelda Neri DRESS OPERATOR-C PROCEDURE: CERV SPINE 4 OR 5 VIEWS 11/10/2024 REASON FOR EXAM: CERVICALGIA TECHNIQUE: 3 views of the cervical spine. COMPARISON: None FINDINGS: Cervical cervical lordosis is maintained. Atlantoaxial interval is within normal limits. Vertebral body heights are within normal limits. Multilevel loss of disc space throughout the cervical spine, most prominent at C6- C7. Multilevel degenerative changes, including uncinate hypertrophy, endplate remodeling most prominent in the lower cervical spine. Multilevel bilateral neural foraminal narrowing, more prominent on the right. No acute fracture or traumatic subluxation. Precervical soft tissue planes are maintained. Imaged lung apices are clear. RAD/Cerv Spine 4 or 5 Views IMPRESSION: No acute fracture or dislocation. Multilevel degenerative changes, most prominent in the lower cervical spine. Reading Location: [facility] CC: DRESS OPERATOR-C Imelda Neri Anesthesiology Tech: Signed Normal [facility] Low Dose CT Lung Screeningon 11-10-[address] Lung Screening [facility] Imaging Services [address] [place], [place] [address] Low Dose CT Lung Screening MR#: [id number] Acct: [id number] Name: AZ GTZ Rep #: [id number] : 1965 M 59 From: Ollie sharif MD PCP: REMINGTON Dexter Status: REG CLI Study: Low Dose CT Lung Screening Date of Exam: 11/10 Exam# [id number] Ordering Dr: Zaria Zafar NP DRESS OPERATOR Phani PROCEDURE: LOW DOSE CT LUNG SCREENING 11/10/2024 REASON FOR EXAM: LUNG CANCER SCREENING Former smoker. Patient was a 20 pack-year smoker. TECHNIQUE: Low Dose CT Lung screening without contrast. Coronal and Sagittal reconstruction series were provided. One or more dose reduction techniques were used (e.g., Automated exposure control, adjustment of the mA and/or kV according to patient size, use of iterative reconstruction technique). REFERENCE LINK: [employer] Lung-RADS RADIATION DOSE SUMMARY: CTDlvol: 3.02 mGy DLP: 109.1 mGycm COMPARISON: None. FINDINGS: PULMONARY NODULES: (Only nodules >3mm are reported) Nodules described below are on series 1 unless otherwise specified. Pulmonary Nodules: No suspicious pulmonary nodule is seen. Hardware:None Lymph Nodes:No evidence of lymphadenopathy. Heart and Vasculature: Coronary Artery Calcifications: Present Lungs and Airways: Mild emphysematous changes are present. Pleura:Unremarkable Upper Abdomen:Unremarkable Bones:Degenerative changes of the thoracic spine. CT/Low Dose CT Lung Screening IMPRESSION: No suspicious nodules seen. Coronary artery calcification (CAC) is is present Lung-RADS Category: 2 BENIGN (BASED ON IMAGING FEATURES OR INDOLENT BEHAVIOR). RECOMMEND 12-MONTH SCREENING LDCT. Other Significant Findings: None. Reading Location: [facility] CC: REMINGTON Neri; REMINGTON Zafar Anesthesiology Tech: Signed Normal [facility] Oncology Visit Reporton Oncology Visit Report [facility] [address] [place] [address] OFFICE VISIT Date of Service: 11/10/24 1223 MR#: [id number] Acct: [id number] Name: AZ GTZ Rep #: [id number] : 1965 From: Zaria Jeronimo Age/Sex: 59/M Location[place] [facility] Status: Signed HPI HPI Reviewed eligibility criteria: 59 year old M with a 20 pack year smoking history (1 ppd x 20 years). Smoking Status: Former smoker (Quit 10/2016) Decision Making Engaged in shared decision making visit utilizing a visual aid. Discussed the risks and benefits of lung cancer screening including the total radiation exposure, false positive rate, over diagnosis and potential need for follow-up diagnostic testing all associated with low-dose chest CT. Comorbidities Diabetes, hypertension, hyperlipidemia ROS Const Denies anorexia, Denies fatigue, Denies headache(s), Denies poor appetite and Denies weight loss ENT Denies headache(s) Card Denies chest pain, Denies dyspnea and Denies palpitations Resp Denies cough, Denies dyspnea and Denies hemoptysis GI Reports system reviewed and no additional complaints, except as documented Reports system reviewed and no additional complaints, except as documented Musc Reports system reviewed and no additional complaints, except as documented Neuro Yes system reviewed and no additional complaints, except as documented and No headache(s) Endo Denies fatigue and Denies palpitations Exam Const General: well developed and not in acute distress Orientation: oriented x3 HENMT Head: normocephalic and atraumatic Neck Neck: supple and no lymphadenopathy noted Resp Effort Inspection: normal respiratory effort and symmetric chest movement Auscultation: Bilateral: Clear to Auscultation Cardio Rate: regular rate Rhythm: regular rhythm Heart Sounds: S1 normal and S2 normal Psych Affect: normal affect Speech and Movement: speech and movement normal Results Results November 10, [address] Lung Screening COMPARISON: None. FINDINGS: PULMONARY NODULES: (Only nodules >3mm are reported) Nodules described below are on series 1 unless otherwise specified. Pulmonary Nodules: No suspicious pulmonary nodule is seen. Hardware:None Lymph Nodes:No evidence of lymphadenopathy. Heart and Vasculature: Coronary Artery Calcifications: Present Lungs and Airways: Mild emphysematous changes are present. Pleura:Unremarkable Upper Abdomen:Unremarkable Bones:Degenerative changes of the thoracic spine. IMPRESSION: No suspicious nodules seen. Coronary artery calcification (CAC) is is present Lung-RADS Category: 2 BENIGN (BASED ON IMAGING FEATURES OR INDOLENT BEHAVIOR). RECOMMEND 12-MONTH SCREENING LDCT. Other Significant Findings: None. Intake Vital Signs 10/07/24 13:24 11/10/24 12:27 Height 5 ft 9 in 5 ft 9 in Weight: 172 lb 6 oz BMI 25.4 BP 134/82 H Blood Pressure Location Rt brachial Position Sitting Respiration 18 Pulse 76 Pulse Source Monitor Temp 98.3 F Temp Source Temporal Pulse Oximetry (%) 96 Oxygen Delivery Method room air Intake Visit Reasons: LUNG CANCER SCREENING Is patient in pain?: Yes (right shoulder) Pain scale (1-10): 5 Allergies bacitracin (From Neosporin (jul-nhq-jempx)) Allergy (Severe, Verified 11/10/24 12:28) RASH neomycin (From Neosporin (xub-gia-mokek)) Allergy (Severe, Verified 11/10/24 12:28) RASH polymyxin B (From Neosporin (pho-hqe-onwnj)) Allergy (Severe, Verified 11/10/24 12:28) RASH bee venom protein (honey bee) (bees) Allergy (Intermediate, Verified 11/10/24 12:28) Swelling cobalt Allergy (Intermediate, Verified 11/10/24 12:28) rash nickel Allergy (Intermediate, Verified 11/10/24 12:28) rash Medications ???Medication ???Instructions ???Recorded ???Confirmed ???Type multivitamin 1 ea PO DAILY 04/27/17 11/10/24 Hi story Zinc 30 mg PO DAILY 05/11/24 11/10/24 H istory atorvastatin 20 mg tablet 20 mg PO DAILY #90 tabs 05/11/24 0 11/10/24 Rx coenzyme Q10 100 mg capsule 100 mg PO QDAY 05/11/24 11/10/24 H istory dapagliflozin propanediol 10 mg 10 mg PO DAILY #90 tabs 05/11/24 0 11/10/24 Rx tablet (Farxiga) glipizide 5 mg tablet, extended 5 mg PO BID #180 tabs 05/11/2409/05 Rx release 24 hr lisinopril 40 mg tablet 40 mg PO QDAY #90 tabs 05/11/24 Rx metformin 500 mg 24 hr 1,000 mg (2 x 500 mg) PO BID #360 05/11/24 11/10/24 Rx tablet,extended release (gastric tabs retention) sitagliptin phosphate 100 mg 100 mg PO DAILY #90 tabs 05/11/24 11/10/24 Rx tablet (Januvia) omeprazole 20 mg capsule,delayed 20 mg PO DAILY #90 caps 07/21/24 0 11/10/24 Rx release cholecalciferol (vitamin D3) 50 50 mcg PO DAILY 10/06/24 11/10/24 History mcg (2,000 un (more content not included)... Normal [facility] Shoulder min 2 Viewson 11-10 Shoulder min 2 Views [facility] Imaging Services [address] [place] [address] Shoulder min 2 Views MR#: [id number] Acct: [id number] Name: AZ GTZ Rep #: [id number] : 1965 M 59 From: Bobby Quigley MD PCP: REMINGTON Dexter Status: REG CLI Study: Shoulder min 2 Views Date of Exam: 11/10/24 Exam# [id number] Ordering Dr: Imelda Neri EXAM: XR Right Shoulder Complete, 2 or More Views CLINICAL INDICATION: PAIN IN RIGHT SHOULDER TECHNIQUE: Two or more views of the right shoulder. COMPARISON: No relevant prior studies available. FINDINGS: BONES/JOINTS: Unremarkable. No acute fracture. No dislocation. SOFT TISSUES: Unremarkable. RAD/Shoulder min 2 Views IMPRESSION: No acute fracture. Reading Location[facility] CC: DRESS OPERATOR-C Imelda Neri Anesthesiology Tech: Signed Normal [facility] Plastic Surgery Visit Report on 10-23-2024 Plastic Surgery Visit Report [facility] Plastic Reconstructive Surgery [address], [address] [place] [address] OFFICE VISIT Date of Service: 10/23/24 MR#: [id number] Acct: [id number] Name: AZ GTZ Rep #: [id number] : 1965 Provider: Dr. Tae Vasquez MD Age/Sex: 59/M Location[place] [facility] Status: Signed Intake Vital Signs 3 10/07/24 13:24 10/23/24 10:25 Height 5 ft 9 in BP 151/88 H Blood Pressure Location Rt brachial Position Sitting Respiration 18 Pulse 66 Pulse Source Monitor Pulse Oximetry (%) 98 Oxygen Delivery Method room air Intake Visit Reasons: SUTURE REMOVAL Chief Complaint: post op Is patient in pain?: No Allergies bacitracin (From Neosporin (wsf-nvn-gaddn)) Allergy (Severe, Verified 10/23/24 10:24) RASH neomycin (From Neosporin (tbi-mpt-qbckp)) Allergy (Severe, Verified 10/23/24 10:24) RASH polymyxin B (From Neosporin (qrk-cdq-fplhe)) Allergy (Severe, Verified 10/23/24 10:24) RASH bee venom protein (honey bee) (bees) Allergy (Intermediate, Verified 10/23/24 10:24) Swelling cobalt Allergy (Intermediate, Verified 10/23/24 10:24) rash nickel Allergy (Intermediate, Verified 10/23/24 10:24) rash Medications 3 ???Medication ???Instructions ???Recorded ???Confirmed ???Type multivitamin 1 ea PO DAILY 04/27/17 10/23/24 Hi story Zinc 30 mg PO DAILY 05/11/24 10/23/24 H istory atorvastatin 20 mg tablet 20 mg PO DAILY #90 tabs 05/11/24 0 10/23/24 Rx coenzyme Q10 100 mg capsule 100 mg PO QDAY 05/11/24 10/23/24 H istory dapagliflozin propanediol 10 mg 10 mg PO DAILY #90 tabs 05/11/24 0 10/23/24 Rx tablet (Farxiga) glipizide 5 mg tablet, extended 5 mg PO BID #180 tabs 05/11/24 Rx release 24 hr lisinopril 40 mg tablet 40 mg PO QDAY #90 tabs 05/11/24 Rx metformin 500 mg 24 hr 1,000 mg (2 x 500 mg) PO BID #360 05/11/24 10/23/24 Rx tablet,extended release (gastric tabs retention) sitagliptin phosphate 100 mg 100 mg PO DAILY #90 tabs 05/11/24 10/23/24 Rx tablet (Januvia) omeprazole 20 mg capsule,delayed 20 mg PO DAILY #90 caps 07/21/24 0 10/23/24 Rx release cholecalciferol (vitamin D3) 50 50 mcg PO DAILY 10/06/24 10/23/24 History mcg (2,000 unit) tablet (Vitamin D3) cephalexin 500 mg capsule 500 mg PO Q8H 5 days #15 caps 09/1310/23/24 Rx oxycodone 5 mg tablet 5 mg PO Q12H PRN pain 5 days #10 0 10/07/24 10/23/24 Rx tabs Subjective Details: Doing well. Pain controlled. No numbness or tingling. Compliant with splinting and occupational therapy Objective Details: LUE: Incision c/d/i No signs of infection or fluid collections. Sutures removed. Able to hyperextend the long finger from neutral position No numbness on the dorsum of the long finger Coding Level of Care Code Global Post Op Diagnoses Extensor tendon laceration of left hand with open wound S66.822A; S61.402A [facility] Medical History Wears dentures Wears glasses Back pain Gastric reflux Former smoker GERD (gastroesophageal reflux disease) High cholesterol Hypertension Gout Diabetes Surgical History Hx of colonoscopy Hx of tonsillectomy Hx of eye surgery Hx of hand surgery Family History Mother Diabetes Hypertension High cholesterol Grandmother Diabetes Father Hypertension Kidney disease Social History Smoking Status: Former smoker quit date: 08/12/16 alcohol intake: never substance use type: does not use what type of physical activity do you participate in: none Assessment and Plan (No Qualifiers) Assessment and Plan (1) Extensor tendon laceration of left hand with open wound: Status: Acute Comment: Left long finger zone 5 Plan: Expected course Continue extensor tendon protocol with occupational therapy Follow-up with me in 1 month or sooner as needed 10/23/24 1452 Date Tae Vasquez MD [facility] Signature: Date (if applicable) CC: Normal [facility] Plastic Surgery Visit Report on 10-15-2024 Plastic Surgery Visit Report [facility] Plastic Reconstructive Surgery [address], [address] [place], [place] [address] OFFICE VISIT Date of Service: 10/15/24 MR#: [id number] Acct: [id number] Name: AZ GTZ Rep #: [id number] : 1965 Provider: Dr. Tae Vasquez MD Age/Sex: 59/M Location: [facility] Status: Signed Intake Vital Signs 3 10/07/24 13:24 10/15/24 10:33 Height 5 ft 9 in BP 117/76 Blood Pressure Location Rt brachial Position Sitting Respiration 18 Pulse 71 Pulse Source Monitor Temp 98.6 F Temp Source Oral Pulse Oximetry (%) 98 Oxygen Delivery Method room air Intake Visit Reasons: POST OP [facility] Chief Complaint: post op Is patient in pain?: No Allergies bacitracin (From Neosporin (exw-uog-glmey)) Allergy (Severe, Verified 10/15/24 10:32) RASH neomycin (From Neosporin (vtc-rwr-dddve)) Allergy (Severe, Verified 10/15/24 10:32) RASH polymyxin B (From Neosporin (baz-rwp-jlkry)) Allergy (Severe, Verified 10/15/24 10:32) RASH bee venom protein (honey bee) (bees) Allergy (Intermediate, Verified 10/15/24 10:32) Swelling cobalt Allergy (Intermediate, Verified 10/15/24 10:32) rash nickel Allergy (Intermediate, Verified 10/15/24 10:32) rash Medications 3 ???Medication ???Instructions ???Recorded ???Confirmed ???Type multivitamin 1 ea PO DAILY 04/27/17 10/15/24 Hi story Zinc 30 mg PO DAILY 05/11/24 10/15/24 H istory atorvastatin 20 mg tablet 20 mg PO DAILY #90 tabs 05/11/24 0 10/15/24 Rx coenzyme Q10 100 mg capsule 100 mg PO QDAY 05/11/24 10/15/24 H istory dapagliflozin propanediol 10 mg 10 mg PO DAILY #90 tabs 05/11/24 0 10/15/24 Rx tablet (Farxiga) glipizide 5 mg tablet, extended 5 mg PO BID #180 tabs 05/11/2402/03 Rx release 24 hr lisinopril 40 mg tablet 40 mg PO QDAY #90 tabs 05/11/24 Rx metformin 500 mg 24 hr 1,000 mg (2 x 500 mg) PO BID #360 05/11/24 10/15/24 Rx tablet,extended release (gastric tabs retention) sitagliptin phosphate 100 mg 100 mg PO DAILY #90 tabs 05/11/24 10/15/24 Rx tablet (Januvia) omeprazole 20 mg capsule,delayed 20 mg PO DAILY #90 caps 07/21/24 0 10/15/24 Rx release cholecalciferol (vitamin D3) 50 50 mcg PO DAILY 10/06/24 10/15/24 History mcg (2,000 unit) tablet (Vitamin D3) cephalexin 500 mg capsule 500 mg PO Q8H 5 days #15 caps 09/1310/15/24 Rx oxycodone 5 mg tablet 5 mg PO Q12H PRN pain 5 days #10 0 10/07/24 10/15/24 Rx tabs Subjective Details: Doing well. Pain controlled. No real numbness on the back of his fingers. Progressing well with hand therapist. He has a daytime and a night time removable splint for the extensor tendon protocol. Objective Details: LUE: Incision c/d/i No signs of infection or fluid collections. Able to hyperextend the long finger from neutral position Coding Level of Care Code Global Post Op Diagnoses Extensor tendon laceration of left hand with open wound S66.822A; S61.402A [facility] Medical History Wears dentures Wears glasses Back pain Gastric reflux Former smoker GERD (gastroesophageal reflux disease) High cholesterol Hypertension Gout Diabetes Surgical History Hx of colonoscopy Hx of tonsillectomy Hx of eye surgery Hx of hand surgery Family History Mother Diabetes Hypertension High cholesterol Grandmother Diabetes Father Hypertension Kidney disease Social History Smoking Status: Former smoker quit date: 08/12/16 alcohol intake: never substance use type: does not use what type of physical activity do you participate in: none Assessment and Plan (No Qualifiers) Assessment and Plan (1) Extensor tendon laceration of left hand with open wound: Status: Acute Comment: Left long finger zone 5 Plan: Expected course post op week 1 Continue hand therapy (extensor tendon protocol) F/u in 1 week for suture removal 10/15/24 1053 Date Tae Vasquez MD [facility] Signature: Date (if applicable) CC: Normal [facility] OT General Evaluationon OT General Evaluation [facility] Occupational Therapy [facility] [address] [place] [address] / REHABILITATION SERVICES INITIAL EVALUATION MR#: [id number] Acct: [id number] Name: AZ GTZ Rep #: [id number] : 1965 59 From: Candelaria SANABRIA/EVGENY Patel Referring Dr.: Dr. Tae Vasquez MD Status: REG R [facility] Eval Date: SELF PAY INSURANCE Patient's Visit Information Visit Information Visit Information: AZ GTZ is a 59 year old M, referred to Occupational Therapy by Dr. Tae Vasquez MD, with a diagnosis of extensor tendon laceration left LF. Date of Evaluation: 10/13/24 Occupational Therapist: ELLY Arechiga/Jorge, CHT Subjective Subjective: This 59 year old male was seen for OT eval with dx of extensor tendon laceration- DOI was on 09/29/24 pt underwent zone 5 extensor tendon repair on 10/07/24. 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 left wrist is moving well short arch motion today Quick DASH-Disab of Arm,Shoulder Hand Quick DASH Score: 83.9275 Goals Goal:100% adherence to protocol: Yes Comment: Zone 5 extensor tendon guidelines Goal:Daily scar massage when approriate: Yes Goal:ROM equal to unaffected hand: Yes Goal:Clearing Inspector/Pinch strength at least 75% of unaffected hand: Yes Comment: will not initiate until week 6 Goal:No pain with affected hand use: Yes Goal:Full use of affected hand in daily activities including work: Yes Goal:Decrease scar hypersensitivity: Yes Other Goal: orthosis use: pt will demo understanding of orthosis use and precautions by end of 1st session. Rehabilitation General Assessment: pt arrives 6 days s/p zone 5 extensor tendon repair of left hand. is with pt. she has concerns pt will try to do more than he should. incision looks good, min swelling- pt denies tingling or numbness. pt demo need for OT services 2-3x week for 6-8 weeks to return pt to OF. Today a custom orthosis was nina. to allow for healing and protection of tendon repair- pt demo IND donning and doffing of orthosis ( therapist also made one for night use) pt was ed. in hook fist ROM - therapist will provide ext ex and support short arch wrist ROM ex. pt and demo understanding and agree to POC. Rehabilitation Potential: Good Anticipated Interventions Anticipated Interventions: Early Active Motion, A/AAROM/PROM, Edema Control, Scar Care, Orthoses, Joint Protection/Energy Conservation, Ergonomic Education, Education re assistive Equipment, Education re Diagnosis, Caregiver Training and Home Program Visit Plan Frequency: 1-2x /Week Duration: 3 Months TEXT: Thank you for the opportunity to evaluate your patient. For Medicare and Medicare HMO plans, please review the plan of care and approve it. It will need to be FAXED BACK to us at [phone] for Medicare purposes. Please let me know if there are questions or concerns regarding this plan of care. Physician Signature: Date : 10/14/24 0730 CC: CONNOR-Sara Neri; Dr. Tae Vasquez MD MK Signed For Medicare only, by signing this I certify the plan of care. Physicians Signature Date Normal [facility] Bedside Glucoseon 10-07-2024 FINGERSTICK GLU 94 mg/dL Normal 74-106 [facility] Comment on above: Result Comment: SHANNA GEMENT OF PATIENT CARE PER NURSING PROTOCOL Performed By: #### L 501.080 #### [facility] [address] [place], [address] Gl[facility] measurement at [facility] deOrdered By: Tae Vasquez on 10-07-2024 Bedside Glucose (Misc Panel) 94 mg/dL 74-106 [facility] Comment on above: MANAGEMENT OF PATIEN T CARE PER NURSING PROTOCOL Glucose [Mass/Vol] 94 mg/dL 74-106 [facility] Comment on above: MANAGEMENT OF PATIEN T CARE PER NURSING PROTOCOL H AND P Exam - Surgicalon H&P Exam - Surgical [facility] Medical Records Department [address] [place] [address] H P Exam - Surgical 10/07/24 1343 MR#: [id number] Acct: [id number] Name: AZ GTZ Rep #: [id number] : 1965 59 From: Tae Vasquez MD PCP: REMINGTON Dexter Status:REG [facility] Location: [place] [address] HPI - General HPI Narrative Az Gtz is a 58-year-old male with past medical history of diabetes who presents today for evaluation out of concern for left middle finger extensor tendon laceration, zone 5. This occurred on 29 September 2024 (2 days ago) when he excellently cut it on a piece of clean steel. Denies any numbness or tingling. Reports sharp severe pain in the affected extremity worsened by movements and improved with rest and elevation. He is concerned about his inability to hyperextend his left long finger. He is right-hand dominant. 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 He is not a smoker Tetanus is up-to-date. The wound was washed out in the emergency department and closed Current Encounter (DATE OF SURGERY H P UPDATE): I saw and examined the patient this morning in pre- operative holding. We discussed risks and benefits of today's surgery and they would like to proceed. NO CHANGE in health history since last seen and evaluated. Ready to proceed with surgery. [facility] Medical History (Updated 10/06/24 @ 10:09 by Yasemin Delgado) Wears dentures Wears glasses Back pain Gastric reflux Former smoker GERD (gastroesophageal reflux disease) High cholesterol Hypertension Gout Diabetes Home Medications ???Medication ???Instructions ???Recorded ???Last Taken ???Type multivitamin 1 ea PO DAILY 04/27/17 Unknown His tory Zinc 30 mg PO DAILY 05/11/24 Unknown Hi story atorvastatin 20 mg tablet 20 mg PO DAILY #90 tabs 05/11/24 U nknown Rx coenzyme Q10 100 mg capsule 100 mg PO QDAY 05/11/24 10/06/24 H istory dapagliflozin propanediol 10 mg 10 mg PO DAILY #90 tabs 05/11/24 0 10/06/24 Rx tablet (Farxiga) glipizide 5 mg tablet, extended 5 mg PO BID #180 tabs 05/11/24 Unk nown Rx release 24 hr lisinopril 40 mg tablet 40 mg PO QDAY #90 tabs 05/11/24 Un known Rx metformin 500 mg 24 hr 1,000 mg (2 x 500 mg) PO BID #360 05/11/24 Unknown Rx tablet,extended release (gastric tabs retention) sitagliptin phosphate 100 mg 100 mg PO DAILY #90 tabs 05/11/24 10/06/24 Rx tablet (Januvia) omeprazole 20 mg capsule,delayed 20 mg PO DAILY #90 caps 07/21/24 0 10/07/24 09:30 Rx release cholecalciferol (vitamin D3) 50 50 mcg PO DAILY 10/06/24 Unknown H istory mcg (2,000 unit) tablet (Vitamin D3) cephalexin 500 mg capsule 500 mg PO Q8H 5 days #15 caps 09/13 02/03 Unknown Rx oxycodone 5 mg tablet 5 mg PO Q12H PRN pain 5 days #10 0 10/07/24 Unknown Rx tabs Allergy/AdvReac Type Severity Reaction Status Date / Time bacitracin (From Neosporin Allergy Severe RASH Verified 10/07/24 13:22 (lkl-wso-[id number])) neomycin (From Neosporin Allergy Severe RASH Verified 10/07/24 13:22 (fgd-aky-mliah)) polymyxin B (From Neosporin Allergy Severe RASH Verified 10/07/24 13:22 (gls-ljy-sobtp)) bee venom protein (honey Allergy Intermediate Swelling Verified 10/07/24 13:22 bee) (bees) cobalt Allergy Intermediate rash Verified 10/07/24 13:22 nickel Allergy Intermediate rash Verified 10/07/24 13:22 Family History Mother Diabetes Hypertension High cholesterol Grandmother Diabetes Father Hypertension Kidney disease Surgical History (Updated 10/06/24 @ 10:09 by Yasemin Delgado) Hx of colonoscopy Hx of tonsillectomy Hx of eye surgery Hx of hand surgery Social History Smoking Status: Former smoker quit date: 08/12/16 alcohol intake: never substance use type: does not use what type of physical activity do you participate in: none Vital Signs Vital Signs Vital Signs: 10/07/24 13:24 10/07/24 13:24 Temperature 98.9 F Temperature Source Temporal Pulse Rate 76 Respiratory Rate 16 Respiratory Pattern Normal Blood Pressure 137/88 H Blood Pressure Mean 104 Blood Pressure Source Monitor Blood Pressure Position Semi-Fowlers Blood Pressure Location Right Arm Pulse Ox 94 Oxygen Delivery Method Room Air Weight Weight: 169 lb 12.095 oz Body Mass Index (BMI) 25.0 Physical Exam Narrative Left upper Extremity Inspection: Left long finger with a laceration over the MP joint on the dorsum Palpation: No induration or fluid collections Motor: Able to bend and extend all MP, PIP, and DIP joints, except he is unable to extend his long finger from neutral position consistent with a zone 5 extensor tendon laceration. Sensory: (more content not included)... Normal [facility] MR/POSTOP.Elian 10-07-2024 MR/POSTOP.[facility] Medical Records Department [address] [place] [address] Anesthesia Postop Eval I 10/07/24 1546 MR#: [id number] Acct: [id number] Name: AZ GTZ Rep #: [id number] : 1965 59 From: Yo Toribio MD PCP: REMINGTON Dexter Status:[facility] Y Race: C Location: [place] [address] Anesthesia: Postop Eval I Current Vital Signs Temperature: 97.8 F Pulse Rate: 77 Blood Pressure: 156/82 Respiratory Rate: 16 Pulse Ox: 97 Oxygen Delivery Method: Room Air Assessment Airway patent: Yes Spontaneous unlabored respirations: Yes Mental status: Awake and Calm nausea: No Vomiting: No Anesthesia Complication: No Fluid Hydration Crystalloid volume administer (ml): 500 Total IV fluid infused: 500 Progress Note Anesthesia document: Postop Eval 1 completed: Yes 10/07/24 154 Date Yo Toribio MD Cosigner Signature: Date CC: Signed Normal [facility] [id number] 10-07-2024 [facility] Medical Records Department [address] [place] [address] Anesthesia Postop Eval II 10/07/24 1739 MR#: [id number] Acct: [id number] Name: AZ GTZ Rep #: [id number] : 1965 59 From: Yo Toribio MD PCP: REMINGTON Dexter Status:DEP [facility] Y Race: C Location: [facility] Anesthesia Postop Eval I Sum Postop Eval Completion status Anesthesia document: Postop Eval 1 completed: Yes Anesthesia Postop Eval I Summary Anesthesia Postop Eval I Summary: Anesthesia Postop Eval I: Assessment Summary Airway patent Yes 10/07/24 15:47 Spontaneous unlabored Yes 10/07/24 15:47 respirations Mental status Awake,Calm 10/07/24 15:47 nausea No 10/07/24 15:47 Vomiting No 10/07/24 15:47 Anesthesia Postop Eval I: Fluid Summary Crystalloid volume administer 500 10/07/24 15:47 (ml) Colloids volume administered ( ml) Blood Product volume administered (ml) Total IV fluid infused 500 10/07/24 15:47 Anesthesia Postop Eval I: Summary Notes Anesthesia Complication No 10/07/24 15:47 Anesthesia Complication Comment: Post-operative progress note Anesthesia: Postop Eval II Evaluation Mental status: Awake and Calm Pain Level: 4 nausea: No Vomiting: No Complications Anesthesia Complication: No 10/07/24 1739 Date Yo Toribio MD Cosigner Signature: Date CC: Signed Normal [facility] Operative Reporton 5 Operative Report [facility] Medical Records Department [address] [place] [address] Operative Report 10/07/24 1639 MR#: [id number] Acct: [id number] Name: AZ GTZ Rep #: [id number] : 1965 59 From: Tae Vasquez MD PCP: REMINGTON Dexter Status:[facility] Location: [place] [address] Operative Report (Standard) Operative Information Date of Procedure: 10/07/24 Pre-Operative Diagnosis: Zone 5 left long finger extensor tendon laceration Post-Operative Diagnosis: Zone 5 left long finger extensor tendon laceration Surgery/Procedure Performed: 1) Primary repair of Zone 5 extensor tendon laceration to the left long finger (CPT: 65226) concrete block maker: Yes Almond Blancher: Jaime Ochoa Tasks completed by first assistant: Retracting Type of Anesthesia: General/Supplemental (Attempted MAC/Sedation, but patient unable to tolerate (was moving extensively) and required LMA. 30 cc of a 50/50 mixture of 1% lidocaine with 1:200,000 epinephrine and 0.25% Marcaine was used for local) RN Documented Start/Stop Times: Operation Date: 10/07/24 14:30 Case Time Into Pre-Op 10/07/24 12:50 Anesthesia Start 10/07/24 14:05 Into Room 10/07/24 14:05 Procedure Start 10/07/24 14:28 Procedure End 10/07/24 15:19 Anesthesia End 10/07/24 15:22 Out of Room 10/07/24 15:22 Into Recovery 10/07/24 15:25 Into Phase II Recovery 10/07/24 16:02 Out of Recovery 10/07/24 16:02 Procedure Start Time: 14:28 Procedure Stop Time: 15:19 Select all DRAINS/GRAFTS/IMPLANT S that apply: None Estimated Blood Loss: 5 cc Specimen collected: No Description of surgery: Indications: Patient cut the left long finger EDC on sheet-metal last week and presents today for primary repair. He understands the risk benefits and alternatives to the procedure. Procedure details: Patient was correct identified in preoperative holding and taken back to the operating room where he was administered local anesthesia (30 cc as noted above) and sedation. He was unable to tolerate the procedure without an LMA, and therefore it was converted to general anesthesia. An Esmarch was used and a tourniquet was inflated on the arm to 250 mmHg. A timeout was performed. The sutures were removed from the existing wound and the wound was washed out with 450 cc of Irrisept and copious amounts normal saline. There were no signs of infection. I was unable to identify the cut ends of the tendon at the base of the wound as it retracted distally and proximally to some degree, and therefore curvilinear incisions were made on the distal radial side of the laceration and the proximal ulnar side of the laceration making a C shaped incision. Care was taken to preserve cutaneous nerve branches this dissection was taken down with tenotomy scissors. The cut ends of the tendon were found and veins were cauterized as needed with bipolar electrocautery. The tendons were easily approximated and were healthy appearing. With a 4 oh looped FiberWire, a Tsuge-Vasquez technique was performed for tendon repair which incorporated 4 core strands. A running epitendinous 6-0 Prolene was then applied as well. There is good cascade following the repair and no gapping. The tourniquet was let down and hemostasis was again obtained with bipolar electrocautery. The wound was closed with interrupted horizontal mattress 3-0 nylon suture. A volar blocking splint was applied with plaster. Patient tolerated the procedure well and was awakened and taken the PACU in stable condition. Postoperative plan: Patient will follow-up in 1 week with me for wound check and also in 1 week for hand therapy (initiate extensor tendon protocol). He will get a custom made splint. In the meantime, splint remains (keep dry and keep in place). No using left upper extremity. Surgical Findings: Cut ends of the tendon, minimal retraction. Good cascade following repair (finger hyperextended when I bend wrist like the other fingers). Complications Complications: No Admit VTE Documentation VTE Present on Admission: No VTE Mechan Device Prophylaxis: SCD's 10/07/24 1655 Cosigner Signature (if applicable): CC: REMINGTON Neri; Dr. Tae Vasquez MD Signed Normal [facility] Plastic Surgery Visit Report on 10-01-2024 Plastic Surgery Visit Report [facility] Plastic Reconstructive Surgery [address], [address] [place], [place] [id number] OFFICE VISIT Date of Service: 10/01/24 MR#: [id number] Acct: [id number] Name: [place] GTZ Rep #: [id number] : 1965 Provider: Dr. Tae Vasquez MD Age/Sex: 58/M Location[place] [facility] [place] Status: Signed with Addenda ADDENDUM by Dr. Tae Vasquez MD on 10/01/24 at 2208 Assessment and Plan (No Qualifiers) Assessment and Plan (1) Extensor tendon laceration of left hand with open wound: Status: Acute Comment: Left long finger zone 5 Plan The patient reports that they do not have any personal or family history of bleeding or clotting disorders. 10/01/242207 Date Tae Vasquez MD cc: * Signed Intake Vital Signs 3 09/29/24 13:49 10/01/24 08:51 Height 5 ft 9 in 5 ft 9 in Weight: 178 lb BMI 26.2 BP 133/82 H Blood Pressure Location Rt brachial Position Sitting Respiration 18 Pulse 74 Pulse Source Monitor Temp 97.9 F Temp Source Oral Pulse Oximetry (%) 97 Oxygen Delivery Method room air Intake Visit Reasons: ED FOLLOW UP-HAND Chief Complaint: f/u ED hand Is patient in pain?: No Allergies bee venom protein (honey bee) (bees) Allergy (Intermediate, Verified 10/01/24 08:43) Swelling cobalt Allergy (Intermediate, Verified 10/01/24 08:43) rash nickel Allergy (Intermediate, Verified 10/01/24 08:43) rash Medications 3 ???Medication ???Instructions ???Recorded ???Confirmed ???Type multivitamin 1 ea PO DAILY 04/27/17 10/01/24 Hi story Zinc PO 05/11/24 10/01/24 History atorvastatin 20 mg tablet 20 mg PO DAILY #90 tabs 05/11/24 0 10/01/24 Rx coenzyme Q10 100 mg capsule 100 mg PO QDAY 05/11/24 10/01/24 H istory dapagliflozin propanediol 10 mg 10 mg PO DAILY #90 tabs 05/11/24 0 10/01/24 Rx tablet (Farxiga) glipizide 5 mg tablet, extended 5 mg PO BID #180 tabs 05/11/24 Rx release 24 hr lisinopril 40 mg tablet 40 mg PO QDAY #90 tabs 05/11/24 Rx metformin 500 mg 24 hr 1,000 mg (2 x 500 mg) PO BID #360 05/11/24 10/01/24 Rx tablet,extended release (gastric tabs retention) sitagliptin phosphate 100 mg 100 mg PO DAILY #90 tabs 05/11/24 10/01/24 Rx tablet (Januvia) omeprazole 20 mg capsule,delayed 20 mg PO DAILY #90 caps 07/21/24 0 10/01/24 Rx release cephalexin 500 mg capsule 500 mg PO TID 3 days #9 caps 09/2910/01/24 Rx PFSH Medical History GERD (gastroesophageal reflux disease) High cholesterol Hypertension Gout Diabetes Family History Mother Diabetes Hypertension High cholesterol Grandmother Diabetes Father Hypertension Kidney disease Social History Smoking Status: Former smoker quit date: 08/12/16 alcohol intake: never substance use type: does not use what type of physical activity do you participate in: none HPI ED FOLLOW UP-HAND Details: Az Gtz is a 58-year-old male with past medical history of diabetes who presents today for evaluation out of concern for left middle finger extensor tendon laceration, zone 5. This occurred on 29 September 2024 (2 days ago) when he excellently cut it on a piece of clean steel. Denies any numbness or tingling. Reports sharp severe pain in the affected extremity worsened by movements and improved with rest and elevation. He is concerned about his inability to hyperextend his left long finger. He is right-hand dominant. 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 He is not a smoker Tetanus is up-to-date. The wound was washed out in the emergency department and closed ROS General General: Yes good health; No fatigue, fever(s) or weight loss HENMT HENMT: No rhinitis, sore throat/mouth sore, nasal congestion, contacts or glaucoma Endo Endocrine: No thyroid disease, polydipsia, heat intolerance, cold intolerance, hepatitis or excessive urine Skin Skin: No Bleeding, bruising, changing moles or suspicious lesion Musc Musculoskeletal: No joint pain, joint stiffness, muscle weakness, back pain, osteoarthritis or Muscle aches/ myalgia Neuro Neurological: No headache(s), No lightheadedness and No numbness Cardio Cardiovascular: No chest pain, pacemaker, fatigue or shortness of breat with exertion Psych Psychiatric: No depression, claustrophobia or anxiety Resp Respiratory: No spitting up, shortness of breath, sleep apnea, asthma, emphysema, TB, Cough or Smoker Gastro Gastrointestinal: No diarrhea, constipation, blood in stool, nausea, vomiting or abdominal bloating Andres Hematologic: No anemia, No bleeding and (more content not included)... Normal [facility] Emergency Department Summary on 09-29-2024 Emergency Department Summary [facility] Medical Records Department [address] [place] [address] Emergency Department Summary 09/29/24 MR#: [id number] Acct: [id number] Name: AZ GTZ Rep #: [id number] : 1965 58 From: Conrad Almendarez DO PCP: REMINGTON Dexter Status:REG ER Location: ED HPI History of Present Illness Chief Complaint: Laceration [facility] Medical History GERD (gastroesophageal reflux disease) High cholesterol Hypertension Gout Diabetes Home Medications ???Medication ???Instructions ???Recorded ???Last Taken ???Type multivitamin 1 ea PO DAILY 04/27/17 Unknown His tory Zinc PO 05/11/24 Unknown History atorvastatin 20 mg tablet 20 mg PO DAILY #90 tabs 05/11/24 U nknown Rx coenzyme Q10 100 mg capsule 100 mg PO QDAY 05/11/24 Unknown Hi story dapagliflozin propanediol 10 mg 10 mg PO DAILY #90 tabs 05/11/24 U nknown Rx tablet (Farxiga) glipizide 5 mg tablet, extended 5 mg PO BID #180 tabs 05/11/24 Unk nown Rx release 24 hr lisinopril 40 mg tablet 40 mg PO QDAY #90 tabs 05/11/24 Un known Rx metformin 500 mg 24 hr 1,000 mg (2 x 500 mg) PO BID #360 05/11/24 Unknown Rx tablet,extended release (gastric tabs retention) sitagliptin phosphate 100 mg 100 mg PO DAILY #90 tabs 05/11/24 Unknown Rx tablet (Januvia) omeprazole 20 mg capsule,delayed 20 mg PO DAILY #90 caps 07/21/24 U nknown Rx release cephalexin 500 mg capsule 500 mg PO TID 3 days #9 caps 09/29 Unknown Rx Allergy/AdvReac Type Severity Reaction Status Date / Time bee venom protein (honey Allergy Intermediate Swelling Verified 09/29/24 13:48 bee) (bees) cobalt Allergy Intermediate rash Verified 09/29/24 13:48 nickel Allergy Intermediate rash Verified 09/29/24 13:48 Family History Mother Diabetes Hypertension High cholesterol Grandmother Diabetes Father Hypertension Kidney disease Social History Smoking Status: Former smoker quit date: 08/12/16 alcohol intake: never substance use type: does not use what type of physical activity do you participate in: none EXAM Physical Exam Const Vital Signs: 09/29/24 13:49 09/29/24 15:45 Temperature 98 F Temperature Source Temporal Pulse Rate 72 67 Respiratory Rate 16 16 Blood Pressure 193/89 H Blood Pressure Mean 123 Pulse Ox 97 96 Oxygen Delivery Method Room Air Room Air MDM MDM MDM Narrative Medical decision making narrative: HISTORY OF PRESENT ILLNESS: 58-year-old male presents with concern for laceration to left third finger. Notes this occurred at approximately 10:40 AM. Notes he cut it on a piece of clean steel. Notes difficulty with movement. And tingling. Denies numbness. REVIEW OF SYSTEMS: Pertinent positives: Laceration, deep range of motion, tingling Pertinent negatives: Loss of sensation PHYSICAL EXAM: Nursing triage notes reviewed, Vital signs reviewed Constitutional: please see mdm Extremities: No edema Neuro: Intact 5/5 strength with ok sign (median), intact finger abduction (ulnar) intact wrist extension (radial n). Intact sensation in the radial, ulnar, and median nerve distributions. Skin: Curvilinear approximately 2 cm laceration over the third metacarpal phalangeal joint MEDICAL DECISION MAKING: Chief Complaint: Hand laceration External records reviewed: Reviewed prior images Factors affecting care: Type 2 diabetes Consults: none MDM Narrative: Patient was initially hypertensive otherwise afebrile and nontoxic-appearing. Exam with decreased extensor tendon function of the left third digit. I considered the following differential diagnosis: Laceration, fracture ALL IMAGES (IF OBTAINED) HAVE BEEN PERSONALLY REVIEWED AND INTERPRETED BY MYSELF. X-ray left hand was read reviewed personally so showed no evidence of obvious open fracture The patient suffered lacerations to the left third digit On exam there was no evidence of foreign bodies. There was no evidence of neurovascular injury. Patient had a normal distal vascular exam, and had intact ROM and sensation. Exam limited by pain, there was diminished extensor tendon function There is no evidence of local joint space involvement at this time. Wound care applied (irrigation and/or local cleansing solution). Laceration repair was then performed please see procedure note. The patient was given signs and symptoms warnings for infection, such as increasing pain, redness, swelling, associated heat, pus or fever. Patient was given instructions for timely follow-up for removal. Patient agreed with the plan of care Procedure: Laceration repair. The procedure was performed (more content not included)... Normal [facility] Hand Min 3 Viewson 5 Hand Min 3 Views [facility] Imaging Services [address] [place] [address] Hand Min 3 Views MR#: [id number] Acct: [id number] Name: [place] GTZ Rep #: [id number] : 1965 M 58 From: Uli Michaels MD PCP: REMINGTON Dexter Status: REG ER Study: Hand Min 3 Views Date of Exam: 09/29/24 Exam# [id number] Ordering Dr: Conrad Almendarez DO PROCEDURE: HAND MIN 3 VIEWS REASON FOR EXAM: Injury TECHNIQUE: 3 view(s) of the left hand COMPARISON: None. FINDINGS: No visible fracture. No suspicious bone lesion. Normal alignment. Soft tissues are unremarkable. RAD/Hand Min 3 Views IMPRESSION: No acute osseous abnormality in the left hand Reading Location: [facility] CC: DRESS OPERATOR-C Imelda Neri; Dr. Conrad Almendarez DO Anesthesiology Tech: Signed Normal [facility] CBC W/Diff, Automatedon 04-14 Absolute Lymph 1.80 X10 3/uL Normal 0.83-4.51 [facility] Comment on above: Performed By: #### L 501.9910, L100.0100, L500.4050, L500.4100 ####[facility] [address] [place], [place], [id number] Absolute Neut 3.7 X10 3/uL Normal 2.0-7.7 [facility] Comment on above: Performed By: #### L 501.9910, L100.0100, L500.4050, L500.4100 ####[facility] [address] [place], [address] Basophils/100 WBC (Bld) 0.8 % Normal 0-1 [facility] Comment on above: Performed By: #### L 501.9910, L100.0100, L500.4050, L500.4100 ####[facility] [address] [place], [address] Eosinophils/100 WBC (Bld) 2.7 % Normal 0-5 [facility] Comment on above: Performed By: #### L 501.9910, L100.0100, L500.4050, L500.4100 ####[facility] [address] [place], [address] Erythrocyte distribution width (RBC) [Ratio] 13.4 % Normal 11.6-14.6 [facility] Comment on above: Performed By: #### L 501.9910, L100.0100, L500.4050, L500.4100 ####[facility] [address] [place], [address] Hematocrit (Bld) [Volume fraction] 46.3 % Normal 40-54 [facility] Comment on above: Performed By: #### L 501.9910, L100.0100, L500.4050, L500.4100 ####[facility] [address] [place], [address] Hemoglobin (Bld) [Mass/Vol] 15.5 g/dL Normal 13.0-16.5 [facility] Comment on above: Performed By: #### L 501.9910, L100.0100, L500.4050, L500.4100 ####[facility] [address] [place], [address] IG% 0.800 Normal 0.0-0.9 [facility] Comment on above: Result Comment: IG% - Immature Granulocytes (promyelocytes, myelocytes and metamyelocytes) > 1% indicates that a LEFT SHIFT is Present. Performed By: #### L 501.9910, L100.0100, L500.4050, L500.4100 ####[facility] [address] [place], [address] Lymphocytes/100 WBC (Bld) 28.5 % Normal 19-41 [facility] Comment on above: Performed By: #### L 501.9910, L100.0100, L500.4050, L500.4100 ####[facility] [address] [place], [address] MCH (RBC) [Entitic mass] 29.3 pg Normal 27.0-32.0 [facility] Comment on above: Performed By: #### L 501.9910, L100.0100, L500.4050, L500.4100 ####[facility] [address] [place], [address] MCHC (RBC) [Mass/Vol] 33.5 g/dL Normal 32-36 [facility] Comment on above: Performed By: #### L 501.9910, L100.0100, L500.4050, L500.4100 ####[facility] [address] [place], [address] MCV (RBC) [Entitic vol] 87.5 fL Normal 80-94 [facility] Comment on above: Performed By: #### L 501.9910, L100.0100, L500.4050, L500.4100 ####[facility] [address] [place], [address] Monocytes/100 WBC (Bld) 8.9 % Normal 0-10 [facility] Comment on above: Performed By: #### L 501.9910, L100.0100, L500.4050, L500.4100 ####[facility] [address] [place], [address] Neutrophils/100 WBC (Bld) 58.3 % Normal 47-70 [facility] Comment on above: Performed By: #### L 501.9910, L100.0100, L500.4050, L500.4100 ####[facility] [address] [place], [address] Nucleated RBC (Bld) [#/Vol] 0 10*3/uL Normal 0-5 [facility] Comment on above: Performed By: #### L 501.9910, L100.0100, L500.4050, L500.4100 ####[facility] [address] [place], [address] Platelet mean volume (Bld) [Entitic vol] 10.0 fL Normal 6.2-12.0 [facility] Comment on above: Performed By: #### L 501.9910, L100.0100, L500.4050, L500.4100 ####[facility] [address] [place], [address] Platelets (Bld) [#/Vol] 251 10*3/uL Normal 150-450 [facility] Comment on above: Performed By: #### L 501.9910, L100.0100, L500.4050, L500.4100 ####[facility] [address] [place], [address] RBC (Bld) [#/Vol] 5.29 10*6/uL Normal 4.6-6.2 [facility] Comment on above: Performed By: #### L 501.9910, L100.0100, L500.4050, L500.4100 ####[facility] [address] [place], [address] RDW SD 42.3 fl Normal 35.1-43.9 [facility] Comment on above: Performed By: #### L 501.9910, L100.0100, L500.4050, L500.4100 ####[facility] [address] [place], [address] WBC (Bld) [#/Vol] 6.3 10*3/uL Normal 4.4-11.0 [facility] Comment on above: Performed By: #### L 501.9910, L100.0100, L500.4050, L500.4100 ####[facility] [address] [place], [address] Comprehensive Metabolic Prof coon 05-11-2024 Albumin [Mass/Vol] 4.6 g/dL Normal 3.2-5.0 [facility] Comment on above: Performed By: #### L 501.9910, L100.0100, L500.4050, L500.4100 ####[facility] [address] [place], [address] Albumin/Globulin [Mass ratio] 1.6 {ratio} Normal 0.9-2.4 [facility] Comment on above: Performed By: #### L 501.9910, L100.0100, L500.4050, L500.4100 ####[facility] [address] [place], [address] ALK P 85 U/L Normal 45-117 [facility] Comment on above: Performed By: #### L 501.9910, L100.0100, L500.4050, L500.4100 ####[facility] [address] [place], [address] ALT [Catalytic activity/Vol] 42 U/L Normal 16-61 [facility] Comment on above: Performed By: #### L 501.9910, L100.0100, L500.4050, L500.4100 ####[facility] [address] [place], [address] AST [Catalytic activity/Vol] 18 U/L Normal 15-37 [facility] Comment on above: Performed By: #### L 501.9910, L100.0100, L500.4050, L500.4100 ####[facility] [address] [place], [address] Bilirubin [Mass/Vol] 0.60 mg/dL Normal 0.20-1.00 [facility] Comment on above: Result Comment: For patients on eltrombopag therapy, use of Dimension [place] TBIL is not recommended. Performed By: #### L 501.9910, L100.0100, L500.4050, L500.4100 ####[facility] [address] [place], [address] BUN/CRE 15.9 RATIO Normal 10-20 [facility] Comment on above: Performed By: #### L 501.9910, L100.0100, L500.4050, L500.4100 ####[facility] [address] [place], [address] CA,Total 10.0 mg/dL Normal 8.5-10.1 [facility] Comment on above: Performed By: #### L 501.9910, L100.0100, L500.4050, L500.4100 ####[facility] [address] [place], [address] Chloride [Moles/Vol] 107 mmol/L Normal 98-107 [facility] Comment on above: Performed By: #### L 501.9910, L100.0100, L500.4050, L500.4100 ####[facility] [address] [place], [address] CO2 [Moles/Vol] 29.0 mmol/L Normal 21.0-32.0 [facility] Comment on above: Performed By: #### L 501.9910, L100.0100, L500.4050, L500.4100 ####[facility] [address] [place], [address] Creatinine [Mass/Vol] 0.82 mg/dL Normal 0.70-1.30 [facility] Comment on above: Result Comment: The validity of the calculated GFR GFRAA in patients over 70 years has not been determined. Clinical correlation is essential. Performed By: #### L 501.9910, L100.0100, L500.4050, L500.4100 ####[facility] [address] [place], [address] EST GFR - AA 124 mL/min Normal >60 [facility] Comment on above: Result Comment: Afri can [place] GFR Calc Performed By: #### L 501.9910, L100.0100, L500.4050, L500.4100 ####[facility] [address] [place], [address] GAP 5 Normal 5-15 [facility] Comment on above: Performed By: #### L 501.9910, L100.0100, L500.4050, L500.4100 ####[facility] [address] [place], [address] GFR/1.73 sq M.predicted among non-blacks MDRD (S/P/Bld) [Vol rate/Area] 102 mL/min/{1.73_m2} Normal >60 [facility] Comment on above: Result Comment: Non- GFR Calc Performed By: #### L 501.9910, L100.0100, L500.4050, L500.4100 ####[facility] [address] [place], [address] Globulin (S) [Mass/Vol] 2.8 g/dL Normal 2.2-4.2 [facility] Comment on above: Performed By: #### L 501.9910, L100.0100, L500.4050, L500.4100 ####[facility] [address] [place], [address] Glucose [Mass/Vol] 126 mg/dL High 74-106 [facility] Comment on above: Result Comment: Fast ing Glucose result greater than or equal to 126 mg/dL suggests DIABETES MELLITUS per A.D.A. criteria. Performed By: #### L 501.9910, L100.0100, L500.4050, L500.4100 ####[facility] [address] [place], [address] Potassium [Moles/Vol] 4.2 mmol/L Normal 3.5-5.1 [facility] Comment on above: Performed By: #### L 501.9910, L100.0100, L500.4050, L500.4100 ####[facility] [address] [place], [address] Sodium [Moles/Vol] 141 mmol/L Normal 136-145 [facility] Comment on above: Performed By: #### L 501.9910, L100.0100, L500.4050, L500.4100 ####[facility] [address] [place], [address] T PROT 7.4 g/dL Normal 6.4-8.2 [facility] Comment on above: Performed By: #### L 501.9910, L100.0100, L500.4050, L500.4100 ####[facility] [address] [place], [address] Urea nitrogen [Mass/Vol] 13 mg/dL Normal 7-18 [facility] Comment on above: Performed By: #### L 501.9910, L100.0100, L500.4050, L500.4100 ####[facility] [address] [place], [address] Endocrinology Visit Reporton 05-11-2024 Endocrinology Visit Report [facility] [address] [place] [address] OFFICE VISIT Date of Service: 05/11/24 MR#: [id number] Acct: [id number] Name: [place] GTZ Rep #: [id number] : 1965 Provider: Cathy Strickland Age/Sex: 58/M Location: [facility] [place] Status: Signed Intake Vital Signs 11/04/23 08:01 05/11/24 09:41 Height 6 ft 6 ft Weight: 175 lb 174 lb 2 oz BMI 23.7 23.6 BP 165/81 H 155/87 H Blood Pressure Location Lt brachial Lt radial Position Sitting Sitting Pulse 71 68 Pulse Source Monitor Monitor Temp 98.6 F Temp Source Temporal Pulse Oximetry (%) 96 96 Oxygen Delivery Method room air room air Intake Visit Reasons: 6 M FU, RS 10/7 Chief Complaint: Diabetes Is patient in pain?: No Allergies cobalt Allergy (Intermediate, Verified 11/04/23 08:01) rash nickel Allergy (Intermediate, Verified 11/04/23 08:01) rash Medications ???Medication ???Instructions ???Recorded ???Confirmed ???Type multivitamin 1 ea PO DAILY 04/27/17 05/11/24 History omeprazole 20 mg capsule,delayed 20 mg PO DAILY #90 caps 01/11/24 05/11/24 Rx release Zinc PO 05/11/24 History atorvastatin 20 mg tablet 20 mg PO DAILY #90 tabs 05/11/24 05/11/24 Rx coenzyme Q10 100 mg capsule 100 mg PO QDAY 05/11/24 05/11/24 History dapagliflozin propanediol 10 mg 10 mg PO DAILY #90 tabs 05/11/24 05/11/24 Rx tablet (Farxiga) glipizide 5 mg tablet, extended 5 mg PO BID #180 tabs 05/11/24 Rx release 24 hr lisinopril 40 mg tablet 40 mg PO QDAY #90 tabs 05/11/24 05/11/24 Rx metformin 500 mg 24 hr 1,000 mg (2 x 500 mg) PO BID #360 05/11/24 05/11/24 Rx tablet,extended release (gastric tabs retention) sitagliptin phosphate 100 mg 100 mg PO DAILY #90 tabs 05/11/24 05/11/24 Rx tablet (Januvia) PFSH Medical History GERD (gastroesophageal reflux disease) High cholesterol Hypertension Gout Diabetes Family History Mother Diabetes Hypertension High cholesterol Grandmother Diabetes Father Hypertension Kidney disease Social History Smoking Status: Former smoker quit date: 08/12/16 alcohol intake: never substance use type: does not use what type of physical activity do you participate in: none HPI HPI Chief Complaint: Diabetes Details: [place] GTZ, is a 58 M who presents to the office today for follow up. A1C is 6.7% He is taking Glipizide 5 mg bid, Farxiga, metformin and Januvia. He is on statin and BECKA. Blood pressure is high today. Her reports occasional night time burning and tingling of his feet. ROS Const Constitutional: No fatigue, weight change or change in appetite Eyes Eyes: No change in vision ENT ENT: No dizziness/vertigo or difficulty swallowing Cardio Cardiology: No chest pain at rest, chest pain with exertion, shortness of breath or palpitations Musc Musculoskeletal: Positive for numbness (Toes) and tingling Neuro Neurology: Positive for numbness (Toes) and tingling; No memory loss Psych Psychiatric: No change in appetite, No memory loss and No Thoughts of harming yourself/Others Resp Respiratory: No cough, chest congestion or shortness of breath Gastro GI: No abdominal pain, constipation, diarrhea or difficulty swallowing Genitourinary Male: No burning urination Skin Skin: No itchy eyes or wounds Endo Endocrine: No fatigue or weight change Aller/Imm Allergy/Immunologic: No itchy eyes Exam Const General: cooperative, healthy appearing, comfortable, no acute distress, well developed and not cushingoid Nutritional Appearance: well nourished Orientation: alert, awake and oriented x3 HENMT Head: normal to inspection Ears: hearing grossly normal bilaterally Nose: external nose normal Mouth: oral mucosae normal Eyes General: appearance normal, both eyes and all related structures Alignment and Position: alignment normal Periorbital: periorbital findings normal Eyelids: eyelids normal Conjunctivae: conjunctivae normal Neck Neck: normal visual inspection Neck mass: No Thyroid: thyroid normal Carotids: no bruits Lymphatic: no lymphadenopathy noted Chest Chest palpation inspection: normal inspection of the chest Resp Effort Inspection: normal respiratory effort, able to speak in complete sentences, symmetric chest movement, no audible wheezes and no cough Auscultation: Bilateral: Clear to Auscultation Cardio Rate: regular rate Rhythm: regular rhythm Pulses: posterior tibial pulses present GI Inspection: normal to inspection Skin General: no rashes or lesions noted Neuro General: patient alert, patient awake and patient oriented x3 (more content not included)... Normal [facility] Lipid Profileon 05-11-2024 Cholesterol [Mass/Vol] 143 mg/dL Normal 200 [facility] Comment on above: Result Comment: <200 mg/dL Desirable 200-240 mg/dL Borderline >240 mg/dL High Risk Performed By: #### L [id number], L100.0100, L500.4050, L500.4100 ####[facility] [id number] [place], [address] Cholesterol in HDL [Mass/Vol] 43 mg/dL Normal [facility] Comment on above: Result Comment: The drugs N-Acetylcysteine and Metamizole may falsely depress this assay. Reference Range HDL <40 mg/dL Low HDL Cholesterol HDL >or= 60 mg/dL High HDL Cholesterol Performed By: #### L [id number], L100.0100, L500.4050, L500.4100 ####[facility] [id number] [place], [address] Cholesterol in LDL [Mass/Vol] 61 mg/dL Normal 0-130 [facility] Comment on above: Performed By: #### L [id number], L100.0100, L500.4050, L500.4100 ####[facility] [id number] [place], [address] Cholesterol in VLDL [Mass/Vol] 39 mg/dL Normal 5-40 [facility] Comment on above: Performed By: #### L [id number], L100.0100, L500.4050, L500.4100 ####[facility] [id number] [place], [address] Triglyceride [Mass/Vol] 196 mg/dL Normal [facility] Comment on above: Result Comment: The drugs N-Acetylcysteine and Metamizole may falsely depress this assay. Serum Triglycerides Reference Interval Normal <150 mg/dL Borderline high 150 - 199 mg/dL High 200 - 499 mg/dL Very High > or = 500 mg/dL Performed By: #### L [id number], L100.0100, [id number], L500.4100 ####[facility] [id number] [facility] [place], [address] PSA,Total - Annual Screenon 05-11-2024 PSA,TOT SCREEN 0.46 ng/mL Normal 0.00-4.00 [facility] Comment on above: Result Comment: This test was performed using the TPSA assay method for the [employer] chemistry system. Values obtained with different assay methods cannot be used interchangably. When changing PSA assays in the course of monitoring a patient, additional sequential testing should be carried out to confirm baseline values. Performed By: #### L [id number], L100.0100, L500.4050, L500.4100 ####[facility] [id number] [place], [address] Vitamin B12on 05-11-2024 Cobalamin (Vitamin B12) [Mass/Vol] 504 pg/mL Normal 211-911 [facility] Comment on above: Performed By: #### L 503.0105 ####[facility] [id number] [place], [address] Absolute lymphocyte countOrd ered By: Imelda Neri on 11-04-2023 Lymphocytes Auto (Unsp spec) [#/Vol] 1.90 10*3/uL 0.83-4.51 [facility] Automated lymphocyte count a s percentage of total leukocytesOrdered By: Imelda Neri on 11-04-2023 Lymphocytes/100 WBC Auto (Unsp spec) 33.0 % 19-41 [facility] Basophil percentageOrdered B y: Imelda Neri on 11-04-2023 Basophils/100 WBC (Bld) 0.9 % 0-1 [facility] Eosinophils/100 WBC (Bld) 2.8 % 0-5 [facility] Hemoglobin (Bld) [Mass/Vol] 15.4 g/dL 13.0-16.5 [facility] Monocytes/100 WBC (Bld) 8.0 % 0-10 [facility] Neutrophils (Bld) [#/Vol] 3.2 10*3/uL 2.0-7.7 [facility] Neutrophils/100 WBC (Bld) 54.8 % 47-70 [facility] WBC (Bld) [#/Vol] 5.8 10*3/uL 4.4-11.0 [facility] Basophil percentageOrdered B y: Lester Quinn on 11-04-2023 Bilirubin [Mass/Vol] 0.40 mg/dL 0.20-1.00 [facility] Comment on above: For patients on eltr ombopag therapy, use of Dimension [place] TBIL is not recommended. Chloride [Moles/Vol] 109 mmol/L 98-107 [facility] Cholesterol [Mass/Vol] 145 mg/dL <200 [facility] Comment on above: <200 mg/dL Desirable 200-240 mg/dL Borderline >240 mg/dL High Risk Glucose [Mass/Vol] 149 mg/dL 74-106 [facility] Comment on above: Fasting Glucose resu lt greater than or equal to 126 mg/dL suggests DIABETES MELLITUS per A.D.A. criteria. Potassium [Moles/Vol] 3.8 mmol/L 3.5-5.1 [facility] Protein [Mass/Vol] 7.2 g/dL 6.4-8.2 [facility] Sodium [Moles/Vol] 141 mmol/L 136-145 [facility] Triglyceride [Mass/Vol] 72 mg/dL <199 [facility] Comment on above: The drugs N-Acetylcy steine and Metamizole may falsely depress this assay.Serum Triglycerides Reference Interval Normal <150 mg/dL Borderline high 150 - 199 mg/dL High 200 - 499 mg/dL Very High > or = 500 mg/dL Determination of erythrocyte mean corpuscular volume (MCV)Ordered By: Imelda Nrei on 11-04-2023 MCV (RBC) [Entitic vol] 87.0 fL 80-94 [facility] Erythrocyte distribution wid th ratioOrdered By: [facility] on 11-04-2023 Erythrocyte distribution width (RBC) [Ratio] 13.3 % 11.6-14.6 [facility] Erythrocyte distribution wid th standard deviationOrdered By: [facility] on 11-04-2023 Erythrocyte distribution width (RBC) [Entitic vol] 41.7 fL 35.1-43.9 [facility] Hematocrit Auto (Bld) [Volum e fraction]Ordered By: Randolph Daron on 11-04-2023 Hematocrit (Bld) [Volume fraction] 46.1 % 40-54 [facility] Immature granulocytes/100 WB C Auto (Bld)Ordered By: [facility] on 11-04-2023 Immature granulocytes/100 WBC (Bld) 0.500 % 0.0-0.9 [facility] Comment on above: IG% - Immature Granu locytes (promyelocytes, myelocytes and metamyelocytes) > 1% indicates that a LEFT SHIFT is Present. Laboratory - Chemistry and C hemistry - challengeOrdered By: Lester Quinn on 11-04-2023 Albumin/Globulin [Mass ratio] 1.7 {ratio} 0.9-2.4 [facility] ALP [Catalytic activity/Vol] 67 U/L 45-117 [facility] ALT [Catalytic activity/Vol] 43 U/L 16-61 [facility] Cholesterol in HDL [Mass/Vol] 41 mg/dL >40 [facility] Comment on above: The drugs N-Acetylcy steine and Metamizole may falsely depress this assay. Reference Range HDL <40 mg/dL Low HDL Cholesterol HDL >or= 60 mg/dL High HDL Cholesterol Cholesterol in LDL [Mass/Vol] 90 mg/dL 0-130 [facility] CO2 [Moles/Vol] 28.0 mmol/L 21.0-32.0 [facility] Globulin (S) [Mass/Vol] 2.7 g/dL 2.2-4.2 [facility] Urea nitrogen/Creatinine [Mass ratio] 17.2 mg/mg 10-20 [facility] Laboratory - Hematology and Cell countsOrdered By: Imelda Neri on 11-04-2023 MCH (RBC) [Entitic mass] 29.1 pg 27.0-32.0 [facility] MCHC (RBC) [Mass/Vol] 33.4 g/dL 32-36 [facility] Nucleated RBC/100 WBC (Bld) [Ratio] 0 % 0-5 [facility] Platelet mean volume (Bld) [Entitic vol] 10.0 fL 6.2-12.0 [facility] Platelets (Bld) [#/Vol] 241 10*3/uL 150-450 [facility] Laboratory - Hematology and Cell countson 11-04-2023 HbA1c (Bld) [Mass fraction] 6.9 % 4.2-6.3 [facility] No Panel InformationOrdered By: Lester Quinn on 11-04-2023 Urine Microalbumin/Creatinin e Ratio 13.5 mg/g CRE <30 [facility] Estimated GFR (MDRD) Amer 124 mL/min >60 [facility] Comment on above: GFR Calc Estimated GFR (MDRD) Non-Af Amer 102 mL/min >60 [facility] Comment on above: Non- GFR Calc VLDL Cholesterol 14 mg/dL 5-40 [facility] RBC Auto (Bld) [#/Vol]Ordere d By: Imelda Neri on 11-04-2023 RBC (Bld) [#/Vol] 5.30 10*6/uL 4.6-6.2 [facility] Serum or plasma calcium rainer urement (mass/volume)Ordered By: Lester Quinn on 11-04-2023 Calcium [Mass/Vol] 8.7 mg/dL 8.5-10.1 [facility] Serum or plasma creatinine m easurement (mass/volume)Ordered By: Lester Quinn on 11-04-2023 Creatinine [Mass/Vol] 0.82 mg/dL 0.70-1.30 [facility] Comment on above: The validity of the calculated GFR & GFRAA in patients over 70 years has not been determined. Clinical correlation is essential. Serum or plasma thyroid stim ulating hormone (TSH) measurement (units/volume)Ordered By: Lester Quinn on 11-04-2023 TSH Qn 1.78 uIU/mL 0.358-3.74 [facility] Serum or plasma urea nitroge n measurement (mass/volume)Ordered By: Lester Quinn on 11-04-2023 Urea nitrogen [Mass/Vol] 14 mg/dL 7-18 [facility] Thin prep Papanicolaou smear with manual screeningOrdered By: Lester Quinn on 11-04-2023 Thin prep Papanicolaou smear with manual screening 8.8 mg/L NO RANGE EST. [facility] Thin prep Papanicolaou smear with manual screening 4.5 g/dL 3.2-5.0 [facility] Thin prep Papanicolaou smear with manual screening 23 U/L 15-37 [facility] Thin prep Papanicolaou smear with manual screening 4 5-15 [facility] Urine creatinine measurement (mass/volume)Ordered By: Lester Quinn on 11-04-2023 Creatinine (U) [Mass/Vol] 65.10 mg/dL NO RANGE EST. [facility] No Panel InformationOrdered By: Dr. Quinn on 10-30-2022 Urine Microalbumin/Creatinin e Ratio 16.2 mg/g CRE <30 [facility] Thin prep Papanicolaou smear with manual screeningOrdered By: Dr. Quinn on 10-30-2022 Thin prep Papanicolaou smear with manual screening 16.8 mg/L NO RANGE EST. [facility] Urine creatinine measurement (mass/volume)Ordered By: Dr. Quinn on 10-30-2022 Creatinine (U) [Mass/Vol] 104.00 mg/dL NO RANGE EST. [facility] Basophil percentageOrdered B y: Dr. Quinn on 10-29-2022 Bilirubin [Mass/Vol] 0.70 mg/dL 0.20-1.00 [facility] Comment on above: For patients on eltr ombopag therapy, use of Dimension [place] TBIL is not recommended. Chloride [Moles/Vol] 106 mmol/L 98-107 [facility] Cholesterol [Mass/Vol] 142 mg/dL <200 [facility] Comment on above: <200 mg/dL Desirable 200-240 mg/dL Borderline >240 mg/dL High Risk Glucose [Mass/Vol] 158 mg/dL 74-106 [facility] Comment on above: Fasting Glucose resu lt greater than or equal to 126 mg/dL suggests DIABETES MELLITUS per A.D.A. criteria. Potassium [Moles/Vol] 4.0 mmol/L 3.5-5.1 [facility] Protein [Mass/Vol] 7.6 g/dL 6.4-8.2 [facility] Sodium [Moles/Vol] 138 mmol/L 136-145 [facility] Triglyceride [Mass/Vol] 141 mg/dL <199 [facility] Comment on above: The drugs N-Acetylcy steine and Metamizole may falsely depress this assay.Serum Triglycerides Reference Interval Normal <150 mg/dL Borderline high 150 - 199 mg/dL High 200 - 499 mg/dL Very High > or = 500 mg/dL Laboratory - Chemistry and C hemistry - challengeOrdered By: Dr. Quinn on 10-29-2022 ALP [Catalytic activity/Vol] 68 U/L 45-117 [facility] ALT [Catalytic activity/Vol] 42 U/L 16-61 [facility] CO2 [Moles/Vol] 21.0 mmol/L 21.0-32.0 [facility] Globulin (S) [Mass/Vol] 3.0 g/dL 2.2-4.2 [facility] Urea nitrogen/Creatinine [Mass ratio] 24.3 mg/mg 10-20 [facility] Laboratory - Hematology and Cell countson 10-29-2022 HbA1c (Bld) [Mass fraction] 5.8 % 4.2-6.3 [facility] No Panel InformationOrdered By: Dr. Quinn on 10-29-2022 Estimated GFR (MDRD) Amer 105 mL/min >60 [facility] Comment on above: GFR Calc Estimated GFR (MDRD) Non-Af Amer 87 mL/min >60 [facility] Comment on above: Non- GFR Calc Thyroid Stimulating Hormone (TSH) 1.82 uIU/mL 0.358-3.74 [facility] Vitamin D 25-Hydroxy 47.2 ng/mL [facility] Comment on above: Vitamin D 25(OH) Sta tus Range Deficiency <20 ng/mL (50nmol/L) Insufficiency 20 - 30 ng/mL (50 - 75 nmol/L) Sufficiency 30 - 100 ng/mL (75 - 250 nmol/L) Toxicity >100 ng/mL (>250 nmol/L) Serum or plasma albumin rainer urement (mass/volume)Ordered By: Dr. Qunin on 10-29-2022 Albumin [Mass/Vol] 4.6 g/dL 3.2-5.0 [facility] Serum or plasma albumin/glob ulin mass ratioOrdered By: Dr. Quinn on 10-29-2022 Albumin/Globulin [Mass ratio] 1.5 {ratio} 0.9-2.4 [facility] Serum or plasma calcium rainer urement (mass/volume)Ordered By: Dr. Quinn on 10-29-2022 Calcium [Mass/Vol] 9.7 mg/dL 8.5-10.1 [facility] Serum or plasma cholesterol in HDL measurement (mass/volume)Ordered By: Dr. Quinn on 10-29-2022 Cholesterol in HDL [Mass/Vol] 36 mg/dL >40 [facility] Comment on above: The drugs N-Acetylcy steine and Metamizole may falsely depress this assay. Reference Range HDL <40 mg/dL Low HDL Cholesterol HDL >or= 60 mg/dL High HDL Cholesterol Serum or plasma cholesterol in VLDL measurement (mass/volume)Ordered By: Dr. Quinn on 10-29-2022 Cholesterol in VLDL [Mass/Vol] 28 mg/dL 5-40 [facility] Serum or plasma creatinine m easurement (mass/volume)Ordered By: Dr. Quinn on 10-29-2022 Creatinine [Mass/Vol] 0.94 mg/dL 0.70-1.30 [facility] Comment on above: The validity of the calculated GFR & GFRAA in patients over 70 years has not been determined. Clinical correlation is essential. Serum or plasma low density lipoprotein (LDL) cholesterol measurement (mass/volume)Ordered By: Dr. Quinn on 10-29-2022 Cholesterol in LDL [Mass/Vol] 78 mg/dL 0-130 [facility] Serum or plasma urea nitroge n measurement (mass/volume)Ordered By: Dr. Quinn on 10-29-2022 Urea nitrogen [Mass/Vol] 23 mg/dL 7-18 [facility] Thin prep Papanicolaou smear with manual screeningOrdered By: Dr. Quinn on 10-29-2022 Thin prep Papanicolaou smear with manual screening 22 U/L 15-37 [facility] Thin prep Papanicolaou smear with manual screening 11 5-15 [facility] Lab Report: Bedside Glucoseo n 05-31-2017 Glucose mass conc 154 mg/dL High 70-110 [facility] Work Phone: Vital Signs Date Time Vital Sign Value Performing Clinician April [email or web address] 12-31-2024 11:07-0400 Body height 175.26 cm Imelda Neri [employer] Work Phone: [facility] 12-31-2024 11:07-0400 Body temperature 98.4 [degF] Imelda Daron [employer] OPERATOR[employer] Work Phone: [facility] 12-31-2024 11:07-0400 Diastolic blood pressure 67 mm[Hg] Imelda Daron [employer]ESS OPERATOR[employer]C Work Phone: [facility] 12-31-2024 11:07-0400 Heart rate 70 /min Imelda Daron [employer] OPERATOR[employer] Work Phone: [facility] 12-31-2024 11:07-0400 Respiratory rate 18 /min Iemlda Daron [employer] OPERATOR[employer] Work Phone: [facility] 12-31-2024 11:07-0400 SaO2% (BldA) [Mass fraction] 94 % Imelda Daron [employer]ESS OPERATOR[employer] Work Phone: [facility] 12-31-2024 11:07-0400 Systolic blood pressure 107 mm[Hg] Imelda Daron [employer]ESS OPERATOR[employer]C Work Phone: [facility] 11-19-2024 09:46-0400 Body height 175.26 cm Imeldabrianda Neri DRESS OPERATOR[employer]C Work Phone: [facility] 11-19-2024 09:46-0400 Body temperature 99.2 [degF] Imelda Daron DRESS OPERATOR[employer]C Work Phone: [facility] 11-19-2024 09:46-0400 Diastolic blood pressure 69 mm[Hg] Imelda Daron [employer]ESS OPERATOR[employer]C Work Phone: [facility] 11-19-2024 09:46-0400 Heart rate 75 /min Imelda Daron DRESS OPERATOR[employer]C Work Phone: [facility] 11-19-2024 09:46-0400 Respiratory rate 18 /min Imelda Daron [employer]ESS OPERATOR[employer]C Work Phone: [facility] 11-19-2024 09:46-0400 SaO2% (BldA) [Mass fraction] 95 % Imelda Daron [employer]ESS OPERATOR[employer] Work Phone: [facility] 11-19-2024 09:46-0400 Systolic blood pressure 110 mm[Hg] Imelda Daron DRESS OPERATOR[employer]C Work Phone: [facility] 11-16-2024 07:58-0400 Body height 175.26 cm Imelda Daron DRESS OPERATOR[employer]C Work Phone: [facility] 11-16-2024 07:58-0400 Body mass index (BMI) [Ratio] 25.8 kg/m2 Imelda Daron DRESS OPERATOR[employer]C Work Phone: [facility] 11-16-2024 07:58-0400 Body weight 79.43 kg Imelda Daron DRESS OPERATOR[employer]C Work Phone: [facility] 11-16-2024 07:58-0400 Diastolic blood pressure 85 mm[Hg] Imelda Daron DRESS OPERATOR[employer]C Work Phone: [facility] 11-16-2024 07:58-0400 Heart rate 80 /min Imelda Daron [employer]ESS OPERATOR[employer]C Work Phone: [facility] 11-16-2024 07:58-0400 SaO2% (BldA) [Mass fraction] 97 % Imelda Daron [employer]ESS OPERATOR[employer]C Work Phone: [facility] 11-16-2024 07:58-0400 Systolic blood pressure 136 mm[Hg] Imelda Daron DRESS OPERATOR[employer]C Work Phone: [facility] 11-10-2024 12:27-0400 Body mass index (BMI) [Ratio] 25.4 kg/m2 Imelda Daron DRESS OPERATOR[employer]C Work Phone: [facility] 11-10-2024 12:27-0400 Body temperature 98.3 [degF] Imelda Daron DRESS OPERATOR[employer]C Work Phone: [facility] 11-10-2024 12:27-0400 Body weight 78.18 kg Imelda Daron DRESS OPERATOR[employer]C Work Phone: [facility] 11-10-2024 12:27-0400 Diastolic blood pressure 82 mm[Hg] Imelda Daron DRESS OPERATOR[employer]C Work Phone: [facility] 11-10-2024 12:27-0400 Heart rate 76 /min Imelda Daron DRESS OPERATOR[employer]C Work Phone: [facility] 11-10-2024 12:27-0400 Respiratory rate 18 /min Imelda Daron DRESS OPERATOR[employer]C Work Phone: [facility] 11-10-2024 12:27-0400 SaO2% (BldA) [Mass fraction] 96 % Imelda Daron DRESS OPERATOR[employer]C Work Phone: [facility] 11-10-2024 12:27-0400 Systolic blood pressure 134 mm[Hg] Imelda Daron DRESS OPERATOR-C Work Phone: [facility] 10-23-2024 10:25-0400 Diastolic blood pressure 88 mm[Hg] Imelda Daron DRESS OPERATOR-C Work Phone: [facility] 10-23-2024 10:25-0400 Heart rate 66 /min Imelda Daron DRESS OPERATOR-C Work Phone: [facility] 10-23-2024 10:25-0400 Respiratory rate 18 /min Imelad Daron DRESS OPERATOR[employer]C Work Phone: [facility] 10-23-2024 10:25-0400 SaO2% (BldA) [Mass fraction] 98 % Imelda Daron DRESS OPERATOR[employer]C Work Phone: [facility] 10-23-2024 10:25-0400 Systolic blood pressure 151 mm[Hg] Imelda Daron DRESS OPERATOR-C Work Phone: [facility] 10-15-2024 10:33-0500 Body temperature 98.6 [degF] Imelda Daron DRESS OPERATOR-C Work Phone: [facility] 10-15-2024 10:33-0500 Diastolic blood pressure 76 mm[Hg] Imelda Daron DRESS OPERATOR[employer]C Work Phone: [facility] 10-15-2024 10:33-0500 Heart rate 71 /min Imelda Daron DRESS OPERATOR[employer]C Work Phone: [facility] 10-15-2024 10:33-0500 Respiratory rate 18 /min Imelda Daron DRESS OPERATOR[employer]C Work Phone: [facility] 10-15-2024 10:33-0500 SaO2% (BldA) [Mass fraction] 98 % Imelda Daron DRESS OPERATOR[employer]C Work Phone: [facility] 10-15-2024 10:33-0500 Systolic blood pressure 117 mm[Hg] Imelda Daron DRESS OPERATOR[employer]C Work Phone: [facility] 10-07-2024 15:59-0500 Body temperature 98.1 [degF] Imelda Daron DRESS OPERATOR[employer]C Work Phone: [facility] 10-07-2024 15:59-0500 Diastolic blood pressure 80 mm[Hg] Imelda Daron DRESS OPERATOR[employer]C Work Phone: [facility] 10-07-2024 15:59-0500 Heart rate 70 /min Imelda Daron DRESS OPERATOR[employer]C Work Phone: [facility] 10-07-2024 15:59-0500 Respiratory rate 16 /min Imelda Daron DRESS OPERATOR[employer]C Work Phone: [facility] 10-07-2024 15:59-0500 SaO2% (BldA) [Mass fraction] 97 % Imelda Daron DRESS OPERATOR-C Work Phone: [facility] 10-07-2024 15:59-0500 Systolic blood pressure 149 mm[Hg] Imelda Daron DRESS OPERATOR-C Work Phone: [facility] 10-07-2024 13:24-0500 Body mass index (BMI) [Ratio] 25 kg/m2 Imelda Daron DRESS OPERATOR[employer]C Work Phone: [facility] 10-07-2024 13:24-0500 Body weight 77 kg Imelda Daron DRESS OPERATOR-C Work Phone: [facility] 10-01-2024 08:51-0500 Body mass index (BMI) [Ratio] 26.2 kg/m2 Imelda Daron DRESS OPERATOR-C Work Phone: [facility] 10-01-2024 08:51-0500 Body temperature 97.9 [degF] Imelda Daron DRESS OPERATOR-C Work Phone: [facility] 10-01-2024 08:51-0500 Body weight 80.73 kg Imelda Daron DRESS OPERATOR-C Work Phone: [facility] 10-01-2024 08:51-0500 Diastolic blood pressure 82 mm[Hg] Imelda Daron DRESS OPERATOR-C Work Phone: [facility] 10-01-2024 08:51-0500 Heart rate 74 /min Imelda Daron DRESS OPERATOR-C Work Phone: [facility] 10-01-2024 08:51-0500 Respiratory rate 18 /min Imelda Daron DRESS OPERATOR-C Work Phone: [facility] 10-01-2024 08:51-0500 SaO2% (BldA) [Mass fraction] 97 % Imelda Daron DRESS OPERATOR-C Work Phone: [facility] 10-01-2024 08:51-0500 Systolic blood pressure 133 mm[Hg] Imelda Daron DRESS OPERATOR-C Work Phone: [facility] 09-29-2024 18:15-0500 Body temperature 98.7 [degF] Imelda Daron DRESS OPERATOR-C Work Phone: [facility] 09-29-2024 18:15-0500 Diastolic blood pressure 78 mm[Hg] Imelda Daron DRESS OPERATOR-C Work Phone: [facility] 09-29-2024 18:15-0500 Heart rate 64 /min Imelda Daron DRESS OPERATOR-C Work Phone: [facility] 09-29-2024 18:15-0500 Respiratory rate 18 /min Imelda Daron DRESS OPERATOR-C Work Phone: [facility] 09-29-2024 18:15-0500 SaO2% (BldA) [Mass fraction] 99 % Imelda Daron DRESS OPERATOR-C Work Phone: [facility] 09-29-2024 18:15-0500 Systolic blood pressure 134 mm[Hg] Imelda Daron DRESS OPERATOR-C Work Phone: [facility] 09-29-2024 13:49-0500 Body mass index (BMI) [Ratio] 26.4 kg/m2 Imelda Daron DRESS OPERATOR-C Work Phone: [facility] 09-29-2024 13:49-0500 Body weight 81.19 kg Imelda Daron DRESS OPERATOR-C Work Phone: [facility] 11-04-2023 08:01-0400 Body height 182.[address] Lester Quinn Work Phone: [facility] 11-04-2023 08:01-0400 Body mass index (BMI) [Ratio] 23.7 kg/m2 Dr. Lester Quinn Work Phone: [facility] 11-04-2023 08:01-0400 Body temperature 98.6 [degF] Dr. Lester Quinn Work Phone: [facility] 11-04-2023 08:01-0400 Body weight 79.[address] Lester Quinn Work Phone: [facility] 11-04-2023 08:01-0400 Diastolic blood pressure 81 mm[Hg] Dr. Lester Quinn Work Phone: [facility] 11-04-2023 08:01-0400 Heart rate 71 /min Dr. Lester Quinn Work Phone: [facility] 11-04-2023 08:01-0400 SaO2% (BldA) [Mass fraction] 96 % Dr. Lester Quinn Work Phone: [facility] 11-04-2023 08:01-0400 Systolic blood pressure 165 mm[Hg] Dr. Lester Quinn Work Phone: [facility] 10-29-2022 08:07-0400 Body height 182.[address] Johnathan Johnson Work Phone: [facility] 10-29-2022 08:07-0400 Body mass index (BMI) [Ratio] 23.3 kg/m2 Dr. Johnathan Johnson Work Phone: [facility] 10-29-2022 08:07-0400 Body temperature 96.9 [degF] Dr. Johnathan Johnson Work Phone: [facility] 10-29-2022 08:07-0400 Body weight 78.[address] Johnathan Johnson Work Phone: [facility] 10-29-2022 08:07-0400 Diastolic blood pressure 76 mm[Hg] Dr. Johnathan Johnson Work Phone: [facility] 10-29-2022 08:07-0400 Heart rate 68 /min Dr. Johnathan Johnson Work Phone: [facility] 10-29-2022 08:07-0400 Respiratory rate 18 /min Dr. Johnathan Johnson Work Phone: [facility] 10-29-2022 08:07-0400 SaO2% (BldA) [Mass fraction] 94 % Dr. Johnathan Johnson Work Phone: [facility] 10-29-2022 08:07-0400 Systolic blood pressure 112 mm[Hg] Dr. Johnathan Johnson Work Phone: [facility] Encounters Encounter Date Encounter Type Care Provider Facility Start: 12-31-2024 End: 12-31-[address] Tae Vasquez MD -[facility] Work Phone: Start: 12-31-2024 End: 12-31-2024 ambulatory [facility] [place] Start: 12-31-2024 End: 12-31-2024 ambulatory [facility] DRESS OPERATOR-C Work Phone: [facility] Work Phone: Start: 12-31-2024 End: 12-31-[address] Tae Vasquez MD -Occupational Thera py Work Phone: Start: 12-28-[address] Tae lozano MD -Occupational Therapy Work Phone: Start: 12-23-2024 End: 12-23-2024 ambulatory [facility] DRESS OPERATOR-C Work Phone: [facility] Work Phone: Start: 12-23-2024 End: 12-23-[address] Laurita Edwards MD -[facility] Work Phone: Start: 12-23-2024 End: 12-23-2024 ambulatory [facility] Facility:[facility] Start: 12-21-2024 End: 12-23-2024 Telephone encounter Brenda Muhammad DO Work Phone: Ophthalmology Comment on above: Patient Question Start: 11-19-2024 End: 11-19-2024 Patient encounter procedure Luz Chase DRESS OPERATOR-C -[facility] Work Phone: Start: 11-19-2024 End: 11-19-2024 ambulatory [facility] Facility:[facility] Start: 11-16-[address] Tae lozano MD -Occupational Therapy Work Phone: Start: 11-16-2024 End: 11-16-[address] Lester Quinn MD -[facility] Work Phone: Start: 11-16-2024 End: 11-16-2024 ambulatory [facility] Facility:[facility] Start: 11-10-2024 End: 11-10-2024 Patient encounter procedure Zaria Zafar DRESS OPERATOR-C -[facility] Work Phone: Start: 11-10-2024 End: 11-10-2024 ambulatory [facility] Facility:[facility] Start: 11-10-2024 End: 11-10-2024 [facility] DRESS OPERATOR-C Work Phone: [facility] Work Phone: Start: 11-10-2024 End: 11-10-2024 Patient encounter procedure Zaria Zafar DRESS OPERATOR-C -Cat Scan, [facility] Work Phone: Start: 11-10-2024 End: 11-10-2024 [facility] Facility:[facility] Start: 10-23-2024 End: 10-23-[address] Tae Vasquez MD -[facility] Work Phone: Start: 10-23-2024 End: 10-23-2024 ambulatory [facility] Start: 10-15-2024 End: 10-15-[address] Tae Vasquez MD -[facility] Work Phone: Start: 10-15-2024 End: 10-15-2024 ambulatory [facility] Start: 10-07-2024 ambulatory [facility] Facility:[facility] Start: 10-07-2024 Non-patient / Non-visit Dr. Tae bauer MD -[facility] Start: 10-07-2024 End: 10-07-2024 Admission to same day surgery center Dr. Tae Vasquez MD -[facility] Start: 10-07-2024 End: 10-07-2024 ambulatory [facility] Facility:[facility] Start: 10-01-2024 End: 10-01-[address] Tae Vasquez MD -[facility] Work Phone: Start: 10-01-2024 End: 10-01-2024 ambulatory [facility] Start: 09-29-2024 End: 09-29-2024 Emergency department patient visit Dr. Conrad Almendarez DO -Emergency Department Work Phone: Start: 06-02-2024 Encounter for genera l adult medical examination with abnormal findings [facility] Start: 05-11-2024 End: 05-11-2024 ambulatory [facility] Facility[facility] Start: 05-11-2024 End: 05-11-2024 ambulatory [facility] Facility:[facility] Start: 11-04-2023 End: 11-04-[address] Lester Quinn Work Phone: [facility] Work Phone: Start: 11-04-2023 End: 11-04-[address] Lester Quinn Work Phone: [facility] Work Phone: Start: 10-30-2022 End: 10-30-[address] Johnathan Johnson Work Phone: [facility] Work Phone: Start: 10-30-2022 End: 10-30-[address] Johnathan Johnson Work Phone: [facility]-Laboratory, Specimen Start: 10-29-2022 End: 10-29-[address] Johnathan Johnson Work Phone: [facility] Work Phone: Start: 10-29-2022 End: 10-29-[address] Johnathan Johnson Work Phone: [facility] Procedures Date Procedure Procedure Detail Performing Clinician Start: 12-23-2024 MRI of cervical spine R zeferinol Daron DRESS OPERATOR-C Work Phone: Start: 11-10-2024 CT of chest Imelda Hernandez ar DRESS OPERATOR-C Work Phone: Start: 11-10-2024 Plain X-ray of shoulder Imelad Neri DRESS OPERATOR-C Work Phone: Start: 11-10-2024 X-ray of cervical spine Imelda Neri DRESS OPERATOR-C Work Phone: Start: 09-29-2024 Plain x-ray of hand Rac brianda Neri DRESS OPERATOR-C Work Phone: Start: 05-14-2017 End: 05-31-2017 Colonoscopy flx dx w/collj spec when pfrmd Zoya Flowers PA-C Work Phone: Start: 05-14-2017 Screening for malign ant neoplasm of colon Screening, colon cancer Keon Myrick MD Start: 06-20-2013 Lipid 1996 panel - S jeni or Plasma Brenda Muhammad DO Work Phone: Plan of Treatment Date Care Activity Detail Author Start: 2038 RSV Vaccine (1 - 1-dose 75+ series) RSV Vaccine (1 - 1-dose 75+ series) [facility] Start: 04-12-2025 Influenza vaccination Influenza Vaccine (Season Ended) [facility] Start: 10-07-2024 Anes nerve muscle tdn fascia&bursa forearm wrist ANESTH LOWER ARM SURGERY [facility] Start: 10-07-2024 Repair extensor tendon hand w/o graft each REPAIR HAND TENDON [facility] Start: 10-07-2024 Patient discharge [facility] Start: 10-07-2024 Referral to occupational therapist [facility] Start: 09-29-2024 [facility] Start: 09-29-2024 Simple repair scalp/neck/ax/genit/trun k 2.5cm/< RPR S/N/AX/GEN/TRNK 2.5CM/< [facility] Start: 04-12-2024 Covid-19 Vaccine ( season) Covid-19 Vaccine ( season) [facility] Start: 06-20-2018 Lipid panel Lipid Screening [facility] Start: 05-31-2017 End: 05-31-2017 Appointment Appointment [facility] Work Phone: Start: 05-14-2017 End: 05-31-2017 Colonoscopy flx dx w/collj spec when pfrmd Colonoscopy [facility] Work Phone: Start: 06-20-2016 Diabetes Screening Diabetes Screening [facility] Start: 2013 Pneumococcal Vaccine: 50+ (1 of 1 - PCV) Pneumococcal Vaccine: 50+ (1 of 1 - PCV) [facility] Start: 2013 Shingrix Vaccine (1 of 2) Shingrix Vaccine (1 of 2) [facility] Start: 2008 Prostate specific antigen measurement Prostate Cancer Screening Discussion [facility] Start: 2008 Screening for malignant neoplasm of colon [facility] Start: 1982 Urine microalbumin profile DTaP,Tdap,Td Vaccine (1 - Tdap) [facility] Start: 1981 Anxiety Screening Anxiety Screening [facility] Start: 1981 Depression Screening Depression Screening [facility] Start: 1981 Hepatitis C screening Hepatitis C Screening [facility] Start: 1981 HIV screening HIV Screening [facility] Patient Education ED Laceration Extremity ED Tendon Rupture, Finger [facility] Work Phone: Patient referral [facility] Work Phone: Immunizations Immunization Date Immunization Notes Care Provider Fa cility 04-27-2017 tetanus toxoid, redu wilner diphtheria toxoid, and acellular pertussis vaccine, adsorbed Dr. Johnathan Johnson Work Phone: [facility] Payers Date Payer Category Payer Unknown [id number] 2024 Unknown [id number] 2024 Unknown [id number] 2024 Self-pay [id number] 2023 Unknown [id number] Private Health Insurance [employer] [id number] Unknown ANTHEM [id number] Unknown [facility] [id number] Unknown [facility] MHS DO NOT USE 22 [id number] Unknown [id number] 62 Unknown [id number] [id number] 62 Unknown [id number] [id number] 62 Unknown [id number] [id number] 62 Unknown [id number] [id number] 62 Unknown [id number] 2.16.840.1.227002.3.579.2.4 62 Unknown [id number] 2.16.840.1.094833.3.579.2.4 62 Unknown [id number] 2.16.840.1.877871.3.579.2.4 62 Unknown [id number] 2.16.840.1.237387.3.579.2.4 62 Unknown [id number] 2.16.840.1.227254.3.579.2.4 62 Unknown [id number] 2.16.840.1.059365.3.579.2.4 62 Unknown [id number] 2.16.840.1.091463.3.579.2.4 62 Unknown [id number] 2.16.840.1.408081.3.579.2.4 62 Unknown [id number] [id number] 62 Unknown [id number] [id number] 62 Social History Date Type Detail Facility Start: 10-29-2022 End: 11-04-2023 Tobacco smoking status VAIS Unknown if ever smoked [facility] Start: 06-12-2017 None [facility] Start: 1965 Sex Assigned At Male [facility] Start: 11-10-2024 [facility] Start: 11-16-2024 Sex Male (finding) [facility] Start: 1965 Sex assigned at Not on file [facility] Gender identity Not on file [facility] in Goals Date Patient Goal Desired Activity /State Mental Status Date Assessment Result Facility 10-07-2024 Cognitive function Voice/Name [facility] Work Phone: Clinical Notes 10-01-2024 to 01-05-2025 Note Date & Type Note Facility 01-05-2025 Discharge summary Note Date/Time January 05, 2025 9:52a m [facility] Occupational Therapy Health[address] [place] [address] / REHABILITATION SERVICES DISCHARGE SUMMARY MR#: [id number] Acct: [id number] Name: NIGEL GTZ Rep #: [id number] 03 : 1965 59 From: Candelaria SANABRIA/Jorge, CHT Referring Dr.: Dr. Tae Vasquez MD Status: REG RCR Eval Date: Discharge Date: Discharge Summary D/C Summary: It has been my pleasure to treat NIGEL GTZ under orders from Dr. Angie MD, for the diagnosis of extensor tendon laceration left LF for a total of 4 visit(s). Please see the following information for a summary of their discharge status. Overall Improvement % Improvement: 95 Objective Objective/Function: slight Pip extensor lag with DIP hyper ext MCP flexion 75 PIP 0/105 DIP +5/ 60 left ash collector strength 50# right is 75# left lateral pinch 20# left tripod pinch 16# Goals Patient Goals: Regain Mobility and Use Hand/Wrist/Arm Normally Again Goal:100% adherence to protocol: Yes Goal:Daily scar massage when approriate: Yes Goal:ROM equal to unaffected hand: Yes Goal:Clearing Inspector/Pinch strength at least 75% of unaffected hand: Yes Goal:No pain with affected hand use: Yes Goal:Full use of affected hand in daily activities including work: Yes Goal:Decrease scar hypersensitivity: Yes Other Goal: orthosis use: pt will demo understanding of orthosis use and precautions by end of 1st session. Plan Plan: light use strengthening D/C Information Discharge Comments: pt has done well in therapy and has met OT goals at this time. pt d/c with instructions to continue with end range of motion to decrease stiffens in AM and strengthen as tolerated d/c sentence: If there are questions or concerns regarding this patient's occupational therapy, please fell free to call me at [phone]. Thank you for the referral of this patient. Sincerely, ELLY Arechiga/Jorge, CHT <Electronically signed by Candelaria SANABRIA/EVGENY Patel> 01/05/25 0952 CC: REMINGTON Neri; Dr. Tae Vasquez MD ~ MK Signed [facility] Work Phone: 1(804) 740-203605-27-2025 Discharge summary [facility] Occupational Therapy Health[address] [place] [address] / REHABILITATION SERVICES DISCHARGE SUMMARY MR#: [id number] Acct: [id number] Name: NIGEL GTZ Rep #: [id number] 03 : 1965 59 From: Candelaria Mota OTR/L, CHT Referring Dr.: Dr. Tae Vasquez MD Status: REG RCR Eval Date: Discharge Date: Discharge Summary D/C Summary: It has been my pleasure to treat NIGEL GTZ under orders from Dr. Angie MD, for the diagnosis of extensor tendon laceration left LF for a total of 4 visit(s). Please see the following information for a summary of their discharge status. Overall Improvement % Improvement: 95 Objective Objective/Function: slight Pip extensor lag with DIP hyper ext MCP flexion 75 PIP 0/105 DIP +5/ 60 left ash collector strength 50# right is 75# left lateral pinch 20# left tripod pinch 16# Goals Patient Goals: Regain Mobility and Use Hand/Wrist/Arm Normally Again Goal:100% adherence to protocol: Yes Goal:Daily scar massage when approriate: Yes Goal:ROM equal to unaffected hand: Yes Goal:Clearing Inspector/Pinch strength at least 75% of unaffected hand: Yes Goal:No pain with affected hand use: Yes Goal:Full use of affected hand in daily activities including work: Yes Goal:Decrease scar hypersensitivity: Yes Other Goal: orthosis use: pt will demo understanding of orthosis use and precautions by end of 1st session. Plan Plan: light use strengthening D/C Information Discharge Comments: pt has done well in therapy and has met OT goals at this time. pt d/c with instructions to continue with end range of motion to decrease stiffens in AM and strengthen as tolerated d/c sentence: If there are questions or concerns regarding this patient's occupational therapy, please fell free to call me at [phone]. Thank you for the referral of this patient. Sincerely, Candelaria Mota, JACKR/L, CHT 01/05/25 0952 CC: DRESS OPERATORPhani Neri; Dr. Tae Vasquez MD ~ MK Signed [facility]05-22-2025 Discharge summary Author Candelaria Mota [facility] Note Date/Time December 31, 2024 7:00p m [facility] Occupational Therapy [facility] [address] [place] [address] [address] [place] [address] / REHABILITATION SERVICES DISCHARGE SUMMARY MR#: [id number] Acct: [id number] Name: NIGEL GTZ Rep #: [id number] 09 : 1965 59 From: Candelaria SANABRIA/EVGENY Patel Referring Dr.: Dr. Tae Vasquez MD Status: REG RCR Eval Date: Discharge Date: Discharge Summary D/C Summary: It has been my pleasure to treat NIGEL GTZ under orders from Dr. Angie MD, for the diagnosis of extensor tendon laceration left LF for a total of 4 visit(s). Please see the following information for a summary of their discharge status. Overall Improvement % Improvement: 95 Objective Objective/Function: slight Pip extensor lag with DIP hyper ext MCP flexion 75 PIP 0/105 DIP +5/ 60 left ash collector strength 50# right is 75# left lateral pinch 20# left tripod pinch 16# Goals Patient Goals: Regain Mobility and Use Hand/Wrist/Arm Normally Again Goal:100% adherence to protocol: Yes Goal:Daily scar massage when approriate: Yes Goal:ROM equal to unaffected hand: Yes Goal:Clearing Inspector/Pinch strength at least 75% of unaffected hand: Yes Goal:No pain with affected hand use: Yes Goal:Full use of affected hand in daily activities including work: Yes Goal:Decrease scar hypersensitivity: Yes Other Goal: orthosis use: pt will demo understanding of orthosis use and precautions by end of 1st session. Plan Plan: light use strengthening D/C Information Discharge Comments: pt has done well in therapy and has met OT goals at this time. pt d/c with instructions to continue with end range of motion to decrease stiffens in AM and strengthen as tolerated d/c sentence: If there are questions or concerns regarding this patient's occupational therapy, please fell free to call me at [phone]. Thank you for the referral of this patient. Sincerely, ELLY Arechiga/EVGENY Patel <Electronically signed by Candelaria SANABRIA/EVGENY Patel> 12/31/24 0859 CC: DRESS OPERATORPhani Neri; Dr. Tae Vasquez MD ~ MK Signed [facility] Work Phone: 1(414) 710-437205-22-2025 Discharge summary [facility] Occupational Therapy [facility] [address] [place] [address] / REHABILITATION SERVICES DISCHARGE SUMMARY MR#: [id number] Acct: [id number] Name: NIGEL GTZ Rep #: [id number] 09 : 1965 59 From: Candelaria Mota OTR/L, CHT Referring Dr.: Dr. Tae Vasquez MD Status: REG RCR Eval Date: Discharge Date: Discharge Summary D/C Summary: It has been my pleasure to treat NIGEL GTZ under orders from Dr. Angie MD, for the diagnosis of extensor tendon laceration left LF for a total of 4 visit(s). Please see the following information for a summary of their discharge status. Overall Improvement % Improvement: 95 Objective Objective/Function: slight Pip extensor lag with DIP hyper ext MCP flexion 75 PIP 0/105 DIP +5/ 60 left ash collector strength 50# right is 75# left lateral pinch 20# left tripod pinch 16# Goals Patient Goals: Regain Mobility and Use Hand/Wrist/Arm Normally Again Goal:100% adherence to protocol: Yes Goal:Daily scar massage when approriate: Yes Goal:ROM equal to unaffected hand: Yes Goal:Clearing Inspector/Pinch strength at least 75% of unaffected hand: Yes Goal:No pain with affected hand use: Yes Goal:Full use of affected hand in daily activities including work: Yes Goal:Decrease scar hypersensitivity: Yes Other Goal: orthosis use: pt will demo understanding of orthosis use and precautions by end of 1st session. Plan Plan: light use strengthening D/C Information Discharge Comments: pt has done well in therapy and has met OT goals at this time. pt d/c with instructions to continue with end range of motion to decrease stiffens in AM and strengthen as tolerated d/c sentence: If there are questions or concerns regarding this patient's occupational therapy, please fell free to call me at [phone]. Thank you for the referral of this patient. Sincerely, Candelaria Mota OTR/L, CHT 12/31/24 0859 CC: DRESS OPERATORPhani Neri; Dr. Tae Vasquez MD ~ MK Signed [facility]05-14-2025 Telephone encounter Note* Telephone Encounter - Natalie Arriaga - 12/23/2024 9:07 AM EDT Images from the original note were not included. Spoke to Florence with with the MRI dept. and relayed the following message. Contacted the patient andleft the following message on his VM. Brenda Muhammad, DO You19 hours ago (1:47 PM) Yes You Brenda Muhammad S, DO20 hours ago (12:38 PM) DJ So is it safe to says he is okay to have the MRI? Brenda Muhammad, DO YouYesterday (7:59 AM) I don't use a stent for an ONSD [facility]05-14-2025 Miscellaneous Notes* Telephone Encounter - Natalie Arriaga - 12/23/2024 9:07 AM EDT Images from the original note were not included. Spoke to Florence with with the MRI dept. and relayed the following message. Contacted the patient andleft the following message on his VM. Brenda Muhammad, DO You19 hours ago (1:47 PM) Yes You Brenda Muhammad S, DO20 hours ago (12:38 PM) DJ So is it safe to says he is okay to have the MRI? Brenda Muhammad, DO YouYesterday (7:59 AM) I don't use a stent for an ONSD * Telephone Encounter - Natalie Arriaga - 12/21/2024 12:25 PM EDT Patient is calling for he had a stent placed in his eye in 2004 and is asking what type of stent was used. Patient is due to have an MRI, and he needs to make sure the stent is okay for him to have the MRI. Patient can be contacted at the following number, . FV: None LV: 025/05/2005 PRE-OPERATIVE ASSESSMENT (Internal Medicine) Surgeon: Dr. Muhammad Type of surgery: optic nerve sheath decompression left eye Patient scheduled for surgery on 12-20-04. Diagnosis:papilledema BP 110/70 Pulse 64 Temp 98.6 Temp Src: Oral Ht 5' 8 (1.727m) Wt 155 lbs (70.308 kg) BodyMass Index is 23.57 kg/(m^2). Patient presents with: Pre-Op Exam MEDICATIONS AND ALLERGIES REVIEWED. LATEX ALLERGY: no HISTORY: none PATIENT CAN PERFORM THE FOLLOWING: Do heavy work around the house, such as scrubbing floors or lifting or moving heavy furniture (8.00METs) FUNCTIONAL CLASS ASSIGNMENT: excellent functional capacity REVIEW OF SYSTEMS CLINICAL RESEARCH TECH: no history of stroke, TIAs, or seizures reported. RESP: denies dyspnea, cough, asthma, bronchitis, emphysema, and URI < 2 weeks ago. CARD: patient denies any dyspnea, recent OK, angina, or valvular disease, no DVT or PE GI: GERD occasionally, well controlled with pepcid prn, patient denies any history of PUD, liver problems or ETOH abuse : No history of disease. RENAL: no history of renal insufficiency. ENDO: no history of diabetes, no history of thyroid problems, no history of steroid use HEME: patient denies bleeding, bruising easily, no history of anemia and no history of prior transfusion PSYCHIATRIC: denies history of psychiatric illness ANESTHESIA COMPLICATIONS: no reported complications PAST SURGICAL HISTORY: S/P tonsillectomy and adenoidectomy - at age 64 year old s/p extensive R hand tendon repair d/t injury - 1988 PHYSICAL EXAM: Blood pressure 110/70, pulse 64, temperature 98.6, temperature source Oral, height 5' 8 (1.73 m), weight 155 lbs (70.3 kg). GENERAL: healthy, alert, no distress, cooperative SKIN: Skin color, texture, turgor normal. No rashes or lesions. HEENT: PERRL, EOMI JVD: no jugulovenous distention, no carotid bruits, carotid pulse normal contour CARDIAC: normal S1 and S2; no rubs, murmurs, or gallops LUNGS: Lungs clear to auscultation. Good diaphragmatic excursion. ABDOMEN: Abdomen soft, non-tender. BS normal. No masses or organomegaly. EXTREMITIES: Extremities normal. No deformities, edema, clubbing or skin discoloration. NEURO: Gait normal. Reflexes normal and symmetric. Sensation grossly intact., Cranial nerves II-XIIintact PULSES: 2+ radial, 2+ carotid : not examined/not indicated. EKG: NSR (62 bpm) not ectopy or acute ischemic changes IMPRESSION: Cristopher Gtz is a 39 year old male. History: There is no pertinent medical history Patient has no clinical predictors of increased perioperative cardiovascular risk. Patient is scheduled for a low/intermediate-risk procedure. Functional Class: excellent functional capacity RECOMMENDATIONS: Patient was instructed on the following: To Stop NSAID's 7 days before surgery. To Stop ASA 10 - 14 days before surgery. I recommend the following: Patient at acceptable cardiac risk for surgery. Nickolas Santos MD [facility] Telephone encounter Note * Telephone Encounter - Natalie Arriaga - 12/21/2024 12:25 PM EDT Patient is calling for he had a stent placed in his eye in 2004 and is asking what type of stent was used. Patient is due to have an MRI, and he needs to make sure the stent is okay for him to have the MRI. Patient can be contacted at the following number, . FV: None LV: PRE-OPERATIVE ASSESSMENT (Internal Medicine) Surgeon: Dr. Muhammad Type of surgery: optic nerve sheath decompression left eye Patient scheduled for surgery on 12-20-04. Diagnosis:papilledema BP 110/70 Pulse 64 Temp 98.6 Temp Src: Oral Ht 5' 8 (1.727m) Wt 155 lbs (70.308 kg) BodyMass Index is 23.57 kg/(m^2). Patient presents with: Pre-Op Exam MEDICATIONS AND ALLERGIES REVIEWED. LATEX ALLERGY: no HISTORY: none PATIENT CAN PERFORM THE FOLLOWING: Do heavy work around the house, such as scrubbing floors or lifting or moving heavy furniture (8.00METs) FUNCTIONAL CLASS ASSIGNMENT: excellent functional capacity REVIEW OF SYSTEMS CLINICAL RESEARCH TECH: no history of stroke, TIAs, or seizures reported. RESP: denies dyspnea, cough, asthma, bronchitis, emphysema, and URI < 2 weeks ago. CARD: patient denies any dyspnea, recent OK, angina, or valvular disease, no DVT or PE GI: GERD occasionally, well controlled with pepcid prn, patient denies any history of PUD, liver problems or ETOH abuse : No history of disease. RENAL: no history of renal insufficiency. ENDO: no history of diabetes, no history of thyroid problems, no history of steroid use HEME: patient denies bleeding, bruising easily, no history of anemia and no history of prior transfusion PSYCHIATRIC: denies history of psychiatric illness ANESTHESIA COMPLICATIONS: no reported complications PAST SURGICAL HISTORY: S/P tonsillectomy and adenoidectomy - at age 64 year old s/p extensive R hand tendon repair d/t injury - 1988 PHYSICAL EXAM: Blood pressure 110/70, pulse 64, temperature 98.6, temperature source Oral, height 5' 8 (1.73 m), weight 155 lbs (70.3 kg). GENERAL: healthy, alert, no distress, cooperative SKIN: Skin color, texture, turgor normal. No rashes or lesions. HEENT: PERRL, EOMI JVD: no jugulovenous distention, no carotid bruits, carotid pulse normal contour CARDIAC: normal S1 and S2; no rubs, murmurs, or gallops LUNGS: Lungs clear to auscultation. Good diaphragmatic excursion. ABDOMEN: Abdomen soft, non-tender. BS normal. No masses or organomegaly. EXTREMITIES: Extremities normal. No deformities, edema, clubbing or skin discoloration. NEURO: Gait normal. Reflexes normal and symmetric. Sensation grossly intact., Cranial nerves II-XIIintact PULSES: 2+ radial, 2+ carotid : not examined/not indicated. EKG: NSR (62 bpm) not ectopy or acute ischemic changes IMPRESSION: Cristopher Gtz is a 39 year old male. History: There is no pertinent medical history Patient has no clinical predictors of increased perioperative cardiovascular risk. Patient is scheduled for a low/intermediate-risk procedure. Functional Class: excellent functional capacity RECOMMENDATIONS: Patient was instructed on the following: To Stop NSAID's 7 days before surgery. To Stop ASA 10 - 14 days before surgery. I recommend the following: Patient at acceptable cardiac risk for surgery. Nickolas Santos MD [facility]04-03-2025 Radiology Diagnostic study note [facility] Imaging Services [address] [place] [address] [id number] Cerv Spine 4 or 5 Views MR#: [id number] Acct: [id number] Name: [place] GTZ Rep #: [id number] 5 : 1965 M 59 From: Lucila Santiago MD PCP: REMINGTON Dexter Status: REG CLI Study:Cerv Spine 4 or 5 Views Date of Exam: 11/10/24 Exam# [id number] Ordering Dr: Ra lucina Neri PROCEDURE: CERV SPINE 4 OR 5 VIEWS 11/10/2024 REASON FOR EXAM: CERVICALGIA TECHNIQUE: 3 views of the cervical spine. COMPARISON: None FINDINGS: Cervical cervical lordosis is maintained. Atlantoaxial interval is within normal limits. Vertebral body heights are within normal limits. Multilevel loss of disc space throughout the cervical spine, most prominent at C6-C7. Multilevel degenerative changes, including uncinate hypertrophy, endplate remodeling most prominent in the lower cervical spine. Multilevel bilateral neural foraminal narrowing, more prominent on the right. No acute fracture or traumatic subluxation. Precervical soft tissue planes are maintained. Imaged lung apices are clear. RAD/Cerv Spine 4 or 5 Views IMPRESSION: No acute fracture or dislocation. Multilevel degenerative changes, most prominent in the lower cervical spine. Reading Location: S[place] CC: DRESS OPERATORPhani Neri ~ Anesthesiology Tech: Signed [facility]04-01-2025 Radiology Diagnostic study note [facility] Imaging Services [address], [place] [address] Low Dose CT Lung Screening MR#: [id number] Acct: [id number] Name: [place] GTZ Rep #: [id number] 5 : 1965 M 59 From: Harris Art MD PCP: REMINGTON Dexter Status: [facility] Study:Low Dose CT Lung Screening Date of Exam : 11/10/24 Exam# [id number] Ordering Dr: Zaria Hernandez NP DRESS OPERATOR-C PROCEDURE: LOW DOSE CT LUNG SCREENING 11/10/2024 REASON FOR EXAM: LUNG CANCER SCREENING Former smoker. Patient was a 20 pack-year smoker. TECHNIQUE: Low Dose CT Lung screening without contrast. Coronal and Sagittal reconstructionseries were provided. One or more dose reduction techniques were used (e.g., Automated exposure control, adjustment of the mA and/or kV according to patient size, use of iterative reconstruction technique). REFERENCE LINK: [employer] Lung-RADS RADIATION DOSE SUMMARY: CTDlvol: 3.02 mGy DLP: 109.1 mGycm COMPARISON: None. FINDINGS: PULMONARY NODULES: (Only nodules >3mm are reported) Nodules described below are on series 1 unless otherwise specified. Pulmonary Nodules: No suspicious pulmonary nodule is seen. Hardware:None Lymph Nodes:No evidence of lymphadenopathy. Heart and Vasculature: Coronary Artery Calcifications: Present Lungs and Airways: Mild emphysematous changes are present. Pleura:Unremarkable Upper Abdomen:Unremarkable Bones:Degenerative changes of the thoracic spine. CT/Low Dose CT Lung Screening IMPRESSION: No suspicious nodules seen. Coronary artery calcification (CAC) is is present Lung-RADS Category: 2 BENIGN (BASED ON IMAGING FEATURES OR INDOLENT BEHAVIOR). RECOMMEND 12-MONTH SCREENING LDCT. Other Significant Findings: None. Reading Location: [id number] CC: REMINGTON Neri; REMINGTON Zafar ~ Anesthesiology Tech: Signed [facility]04-01-2025 Radiology Diagnostic study note [facility] Imaging Services [address] [place] [address] Shoulder min 2 Views MR#: [id number] Acct: [id number] Name: [place] GTZ Rep #: [id number] 5 : 1965 M 59 From: Lindsey Quigley MD PCP: REMINGTON Dexter Status: REG CLI Study:Shoulder min 2 Views Date of Exam: 11/10/24 Exam# [id number] Ordering Dr: Ra lucina Neri EXAM: XR Right Shoulder Complete, 2 or More Views CLINICAL INDICATION: PAIN IN RIGHT SHOULDER TECHNIQUE: Two or more views of the right shoulder. COMPARISON: No relevant prior studies available. FINDINGS: BONES/JOINTS: Unremarkable. No acute fracture. No dislocation. SOFT TISSUES: Unremarkable. RAD/Shoulder min 2 Views IMPRESSION: No acute fracture. Reading Location: [facility] CC: DRESS OPERATORPhani Neri ~ Anesthesiology Tech: Signed [facility]02-20-2025 Evaluation note* Diagnosis Onset Date Resolution Status Admit Date Extensor tendon laceration o f left hand with open wound acute Februa 2024 8:29am Extensor tendon laceration o f left hand with open wound acute Februa 2024 12:40pm Extensor tendon laceration o f left hand with open wound acute October 15, 2024 10:13am Extensor tendon laceration o f left hand with open wound acute October 23, 2024 10:01am Encounter for screening for malignant neoplasm of lung acute November 10, 2024 12:22pm History of tobacco use acute Ap ril 2024 12:22pm Diabetes chronic November 16 7:55am Hypertension chronic November 16, 025 7:55am Mixed hyperlipidemia chronic Apri l 2024 7:55am [facility] Work Phone: 1(688) 245-351202-20-2025 Evaluation note* Diagnosis Onset Date Resolution Status Admit Date Extensor tendon laceration o f left hand with open wound acute Februa 2024 8:29am Extensor tendon laceration o f left hand with open wound acute Februa ry 2024 12:40pm Extensor tendon laceration o f left hand with open wound acute October 15, 2024 10:13am Extensor tendon laceration o f left hand with open wound acute October 23, 2024 10:01am Encounter for screening for malignant neoplasm of lung acute November 10, 2024 12:22pm History of tobacco use acute Ap ril 2024 12:22pm Diabetes chronic November 16 7:55am Hypertension chronic November 16 025 7:55am Mixed hyperlipidemia chronic Apri l 2024 7:55am Extensor tendon laceration o f left hand with open wound acute November 19, 2024 9:30am [facility] Work Phone: 1(756) 997-597002-20-2025 Evaluation note* Diagnosis Onset Date Resolution Status Admit Date Extensor tendon laceration o f left hand with open wound acute Februa 2024 8:29am Extensor tendon laceration o f left hand with open wound acute Februa ry 2024 12:40pm Extensor tendon laceration o f left hand with open wound acute October 15, 2024 10:13am Extensor tendon laceration o f left hand with open wound acute October 23, 2024 10:01am Encounter for screening for malignant neoplasm of lung acute November 10, 2024 12:22pm History of tobacco use acute Ap ril 2024 12:22pm Diabetes chronic November 16 7:55am Hypertension chronic November 16, 2 025 7:55am Mixed hyperlipidemia chronic Apri l 2024 7:55am Extensor tendon laceration o f left hand with open wound acute November 19, 2024 9:30am Extensor tendon laceration o f left hand with open wound acute December 312024 10:46am [facility] Work Phone: Evaluation note* Diagnosis Onset Date Resolution Status Diabetes chronic Mixed hyperlipidemia [facility] Work Phone: Evaluation note* Diagnosis Onset Date Resolution Status Diabetes chronic Hypertension chronic Mixed hyperlipidemia [facility] Work Phone: Reason for referral (narrative)No reason for referral information [facility] Work Phone: Chief Complaint and Reason for Visit Chief Complaint 6 M FU Reason for Visit Diabetes Mixed hyperlipidemia Chief Complaint 6 M FU Reason for Visit Diabetes Hypertension Mixed hyperlipidemia Chief Complaint Admit Date LAC September 29, 2024 1:48pm ED FOLLOW UP-HAND C October 01 8:29am POST OP BWC October 15, 2024 10:1 3am SUTURE REMOVAL October 23, 2024 10: 01am SMOKER November 10, 2024 9:50 am LUNG CANCER SCREENING November 10, 2024 12 :22pm 6 M FU November 16, 2024 7:55 am EXTENSOR TENDON RX HERE November 16, 2024 8:30am Reason for Visit Admit Date Extensor tendon laceration of left hand with open wound October 01, 2024 8:29am Extensor tendon laceration of left hand with open wound October 07, 2024 12:40pm Extensor tendon laceration of left hand with open wound October 15, 2024 10:13am Extensor tendon laceration of left hand with open wound October 23, 2024 10:01am Encounter for screening for malignant ne oplasm of lung November 10, 2024 12:22pm History of tobacco use November 10, 2024 1 2:22pm Diabetes November 16, 2024 7:55 am Hypertension November 16, 2024 7:55 am Mixed hyperlipidemia November 16, 2024 7:5 5am Chief Complaint Admit Date LAC September 29, 2024 1:48pm ED FOLLOW UP-HAND [facility] October 01 8:29am POST OP BWC October 15, 2024 10:1 3am SUTURE REMOVAL October 23, 2024 10: 01am SMOKER November 10, 2024 9:50 am LUNG CANCER SCREENING November 10, 2024 12 :22pm 6 M FU November 16, 2024 7:55 am 1 M FU BWC November 19, 2024 9:3 0am M54.12 Radiculopathy, cervical region Ma y 2024 1:47pm EXTENSOR TENDON RX HERE December 28, 2024 8 :30am Reason for Visit Admit Date Extensor tendon laceration of left hand with open wound October 01, 2024 8:29am Extensor tendon laceration of left hand with open wound October 07, 2024 12:40pm Extensor tendon laceration of left hand with open wound October 15, 2024 10:13am Extensor tendon laceration of left hand with open wound October 23, 2024 10:01am Encounter for screening for malignant ne oplasm of lung November 10, 2024 12:22pm History of tobacco use November 10, 2024 1 2:22pm Diabetes November 16, 2024 7:55 am Hypertension November 16, 2024 7:55 am Mixed hyperlipidemia November 16, 2024 7:5 5am Extensor tendon laceration of left hand with open wound November 19, 2024 9:30am Chief Complaint Admit Date LAC September 29, 2024 1:48pm ED FOLLOW UP-HAND BWC October 01 8:29am POST OP [facility] October 15, 2024 10:1 3am SUTURE REMOVAL October 23, 2024 10: 01am SMOKER November 10, 2024 9:50 am LUNG CANCER SCREENING November 10, 2024 12 :22pm 6 M FU November 16, 2024 7:55 am 1 M FU [facility] November 19, 2024 9:3 0am M54.12 Radiculopathy, cervical region Ma y 2024 1:47pm EXTENSOR TENDON RX HERE December 31, 2024 8 :30am 6 W FU December 31, 2024 10:46 am Reason for Visit Admit Date Extensor tendon laceration of left hand with open wound October 01, 2024 8:29am Extensor tendon laceration of left hand with open wound October 07, 2024 12:40pm Extensor tendon laceration of left hand with open wound October 15, 2024 10:13am Extensor tendon laceration of left hand with open wound October 23, 2024 10:01am Encounter for screening for malignant ne oplasm of lung November 10, 2024 12:22pm History of tobacco use November 10, 2024 1 2:22pm Diabetes November 16, 2024 7:55 am Hypertension November 16, 2024 7:55 am Mixed hyperlipidemia November 16, 2024 7:5 5am Extensor tendon laceration of left hand with open wound November 19, 2024 9:30am Extensor tendon laceration of left hand with open wound December 31, 2024 10:46am Family History No Family History Records Found Relationship Condition Age at Onset Recorded Date/T brynn mother Diabetes mellitus Unknown Hypertension Unknown High blood cholesterol Unknown grandmother Diabetes mellitus Unknown father Hypertension Unknown Kidney disorder Unknown Advance Directives No Advanced Directives Records Found Advance Directive Response Recorded Date/ Time Living Will No August 19 12:23am Power of Threshing Operator No August 19 019 12:23am Advance Directive Response Recorded Date/ Time Living Will No August 19 12:23am Do you have a Healthcare Power of Threshing Operator? No August 19, 2018 12:23am Living Will No September 29 025 4:43pm Do you have a Healthcare Power of Threshing Operator? No September 29, 2024 4:43pm Living Will No October 06 025 11:09am Do you have a Healthcare Power of Threshing Operator? No October 06, 2024 11:09am Summary Purpose Additional Source Comments Care Teams (unrecognized sec tion and content) Team Status: Active Member Role Status Dates Dr. Johnathan Johnson MD Family Provider Active Team Status: Inactive Member Role Status Dates Dr. Johnathan Johnson MD Referring Provider Active Dr. Lester Quinn MD Attending Provider Active Team Status: Inactive Member Role Status Dates Dr. Lester Quinn MD Attending Provider, Referring Provi boris Active Team Status: Active Member Role Status Dates Dr. Lester Quinn MD Attending Provider, Referring Provi boris Active Team Status: Inactive Member Role Status Dates Dr. Lester Quinn MD Attending Provider Active Team Status: Active Member Role Status Dates REMINGTON Dexter Primary Care Provider Active Team Status: Inactive Member Role Status Dates REMINGTON Dexter Primary Care Provider Active Start: September 29, 2024 End: September 29, 2024 Dr. Conrad Almendarez DO Attending Provider Active Start: September 29, 2024 End: September 29, 2024 Dr. Conrad Almendarez DO Emergency Provider Active Start: September 29, 2024 End: September 29, 2024 Team Status: Inactive Member Role Status Dates REMINGTON Dexter Primary Care Provider Active Start: October 01, 2024 End: October 01, 2024 Imelda Neri DRESS OPERATOR-C Referring Provider Active St art: October 01, 2024 End: October 01, 2024 Dr. Tae Vasquez MD Attending Provider Active Start: October 01, 2024 End: October 01, 2024 Team Status: Inactive Member Role Status Dates Imelda Neri DRESS OPERATOR-C Primary Care Provider Active Start: October 07, 2024 End: October 07, 2024 Dr. Tae Vasquez MD Attending Provider Active Start: October 07, 2024 End: October 07, 2024 Dr. Tae Vasquez MD Referring Provider Active Start: October 07, 2024 End: October 07, 2024 Team Status: Active Member Role Status Dates Imelda Neri DRESS OPERATOR-C Primary Care Provider Active Start: October 07, 2024 Dr. Tae Vasquez MD Attending Provider Active Start: October 07, 2024 Dr. Tae Vasquez MD Referring Provider Active Start: October 07, 2024 Dr. Tae Vasquez MD Other Provider Active Star t: October 07, 2024 Team Status: Inactive Member Role Status Dates Imelda Neri , DRESS OPERATOR-C Primary Care Provider Active Start: October 15, 2024 End: October 15, 2024 Imelda Neri , DRESS OPERATOR-C Referring Provider Active St art: October 15, 2024 End: October 15, 2024 Dr. Tae Vasquez MD Attending Provider Active Start: October 15, 2024 End: October 15, 2024 Team Status: Inactive Member Role Status Dates Imelda Neri DRESS OPERATOR-C Primary Care Provider Active Start: October 23, 2024 End: October 23, 2024 Imelda Neri DRESS OPERATOR-C Referring Provider Active St art: October 23, 2024 End: October 23, 2024 Dr. Tae Vasquez MD Attending Provider Active Start: October 23, 2024 End: October 23, 2024 Team Status: Inactive Member Role Status Dates Imelda Neri , DRESS OPERATOR-C Primary Care Provider Active Start: November 10, 2024 End: November 10, 2024 Zaria Zafar DRESS OPERATOR, DRESS OPERATOR-C Attending Provider Active Start: November 10, 2024 End: November 10, 2024 Zaria Zafar DRESS OPERATOR, DRESS OPERATOR-C Referring Provider Active Start: November 10, 2024 End: November 10, 2024 Team Status: Inactive Member Role Status Dates Imelda Daron , DRESS OPERATOR-C Primary Care Provider Active Start: November 10, 2024 End: November 10, 2024 Imelda Neri , DRESS OPERATOR-C Referring Provider Active St art: November 10, 2024 End: November 10, 2024 Zaria Zafar DRESS OPERATOR, DRESS OPERATOR-C Attending Provider Active Start: November 10, 2024 End: November 10, 2024 Team Status: Inactive Member Role Status Dates Dr. Lester Quinn MD Attending Provider Active Sta rt: November 16, 2024 End: November 16, 2024 Imelda Daron , DRESS OPERATOR-C Primary Care Provider Active Start: November 16, 2024 End: November 16, 2024 Imelda Daron , DRESS OPERATOR-C Referring Provider Active St art: November 16, 2024 End: November 16, 2024 Team Status: Active Member Role Status Dates Imelda Daron , DRESS OPERATOR-C Primary Care Provider Active Start: November 16, 2024 Dr. Tae Vasquez MD Attending Provider Active Start: November 16, 2024 Dr. Tae Vasquez MD Referring Provider Active Start: November 16, 2024 Team Status: Inactive Member Role Status Dates Imelda Daron , DRESS OPERATOR-C Primary Care Provider Active Start: November 19, 2024 End: November 19, 2024 Imelda Daron , DRESS OPERATOR-C Referring Provider Active St art: November 19, 2024 End: November 19, 2024 Luz Chase DRESS OPERATOR, DRESS OPERATOR-C Attending Provider Active Start: November 19, 2024 End: November 19, 2024 Team Status: Inactive Member Role Status Dates Imeldabrianda Neri , DRESS OPERATOR-C Primary Care Provider Active Start: December 23, 2024 End: December 23, 2024 Dr. Laurita Edwards MD Attending Provider Active Start: December 23, 2024 End: December 23, 2024 Dr. Laurita Edwards MD Referring Provider Active Start: December 23, 2024 End: December 23, 2024 Team Status: Active Member Role Status Dates Imelda Neri , DRESS OPERATOR-C Primary Care Provider Active Start: December 28, 2024 Dr. Tae Vasquez MD Attending Provider Active Start: December 28, 2024 Dr. Tae Vasquez MD Referring Provider Active Start: December 28, 2024 Team Status: Inactive Member Role Status Dates Imeldabrianda Neri , DRESS OPERATOR-C Primary Care Provider Active Start: December 31, 2024 End: December 31, 2024 Dr. Tae Vasquez MD Attending Provider Active Start: December 31, 2024 End: December 31, 2024 Dr. Tae Vasquez MD Referring Provider Active Start: December 31, 2024 End: December 31, 2024 Team Status: Inactive Member Role Status Dates REMINGTON Dexter Primary Care Provider Active Start: December 31, 2024 End: December 31, 2024 REMINGTON Dexter Referring Provider Active St art: December 31, 2024 End: December 31, 2024 Dr. Tae Vasquez MD Attending Provider Active Start: December 31, 2024 End: December 31, 2024 Goals (unrecognized section and content) Goals may be documented in a n alternate sectionGoals may be documented in an alternate sectionGoals may be documented in an alternate section Source Comments (unrecognize d section and content) In the event this informatio n is protected by the Federal Confidentiality of Alcohol and Drug Abuse Patient Records regulations: The Federal rules restrict any use of the information to criminally investigate or prosecute any alcohol or drug abuse patient.[facility] Reason for Visit (unrecogniz ed section and content) Reason Comments Patient Question (unrecognized sect ion and content) No Status Records FoundNo Status Records Found INFORMATION SOURCE (unrecogn ized section and content) DATE CREATED AUTHOR 12/24/2024 [facility] DATE CREATED AUTHOR AUTHOR'S TYRON ATION 01/06/2025 [facility] FOR RECORDS PERTAINING TO PATIENTS WHO ARE OR HAVE BEEN ENROLLED IN A CHEMICAL DEPENDENCY/SUBSTANCEABUSE PROGRAM, SOME INFORMATION MAY BE OMITTED. This clinical summary was aggregated from multiple sources. Caution should be exercised in using it in the provision of clinical care. This summary normalizes information from multiple sources, and as a consequence, information in this document may materially change the coding, format and clinical context of patient data. In addition, data may be omitted in some cases. CLINICAL DECISIONS SHOULD BE BASED ON THE PRIMARY CLINICAL RECORDS. [facility]. provides no warranty or guarantee of the accuracy or completeness of information in this document.
== END | disposition home or self-care (01) ==
LOC: RAD 11:27
PROVIDERS: PCP Nurse Practitioner Family; Referring Provider Student in an Organized Health Care Education/Training Program; Visit Provider Student in an Organized Health Care Education/Training Program
DX: M54.9 Dorsalgia, unspecified (principal)
CPT/HCPCS: 72040

== ENCOUNTER → 2025-05-17 | Outpatient (CLI) | payer OTHER, SELFPAY ==
[2025-05-17 09:45] LABS: Creatinine, Urine (random) 69.50 mg/dL (39.00-259.00); Microalbumin,Random Urine 20.9 mg/L (<20 mg/L)
[2025-05-17 10:01] LABS: AST(SGOT) 21 U/L (<=37); Alanine Aminotransfer ALT/SGPT 41 U/L (<=46); Albumin, Serum 4.8 g/dL (3.4-4.8); Alkaline Phosphatase 81 U/L (40-129); Anion Gap 13 (5-15); BUN 15 mg/dL (4-19); BUN/Creat Ratio 18.9 RATIO (10-20); Calcium,Total 9.6 mg/dL (7.6-11.0); Carbon Dioxide 22.8 mmol/L (21.0-32.0); Chloride 105 mmol/L (98-108); Cholesterol 159 mg/dL (<=200); Globulin 2.2 g/dL (2.2-4.2); Glucose 191 mg/dL (70-99); Low Density Lipoprotein Calc. 88 mg/dL; Potassium 4.2 mmol/L (3.3-5.1); Triglycerides 146 mg/dL; Very Low Density Lipoprotein 29 mg/dL (5-40); cholesterol:hdl ratio screen 3.76
== END | disposition home or self-care (01) ==
LOC: LAB 08:36
PROVIDERS: PCP Nurse Practitioner Family; Referring Provider Internal Medicine Endocrinology, Diabetes & Metabolism; Visit Provider Internal Medicine Endocrinology, Diabetes & Metabolism
DX: E11.42 Type 2 diabetes mellitus with diabetic polyneuropathy (principal); E78.2 Mixed hyperlipidemia; I10 Essential (primary) hypertension
CPT/HCPCS: 36415; 80053; 80061; 82043; 82570; 84443

== ENCOUNTER 2025-05-21 07:00 | Outpatient (RCR) | payer OTHER, SELFPAY ==
--- NOTE | 2025-04-09 15:04 | HP.PTEVAL ---
Patient's Visit Information Visit Information Visit Information: NIGEL ROJAS is a 59 year old M referred to Physical Therapy by WILMA Ferrer with a diagnosis of CERVICAL STENOSIS AND RADICULOPATHY. Date of Evaluation: 04/09/25 Physical Therapist: Cecy Stone PT, Cert MDT Visit Plan Frequency: 2x /Week Duration: 4-6 Weeks Plan: MODALITIES NEEDED FOR PAIN. MANUAL THERAPY FOR STM AND TRIGGER POINT RELEASE IN CERVICAL AND R PERISCAPULAR REGIONS. POSTURE CORRECTION/STRENGTHENING, INSTRUCTION IN APPROPRIATE BODY MECHANICS AND ACTIVITY MODIFICATIONS. SCAPULAR STRENGTH/STABILIZATION TRAINING. 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 CLIMBS AND CHAINS LOADS DOWN. PATIENT STATES HIS JOB IS PHYSICAL AND HE WORKS IN A [employer]. NOT CURRENTLY OFF WORK. Present symptoms: R SHLD BLADE, SHLD, UPPER ARM AND SOMETIMES CHEST PAIN. DENIES NUMBNESS AND TINGLING. PATIENT REPORTS MILD LOSS OF BALANCE WALKING ON TRAILER 1-2 TIMES A WEEK. R HAND DOMINANT. DENIES R UE WEAKNESS OR DROPPING THINGS. Present since: CHRONIC BUT WORSENING FOR ABOUT A YEAR. Getting Better, Getting Worse or Staying the Same: GETTING BETTER SINCE LAST INJECTION 03/22/25 Pain Scale: Worst - 9/10 Least - 2/10 Currently: 09/21 Commenced as a result of: NO APPARENT REASON Symptoms at onset: R SHLD BLADE PAIN Worse: WHEN STILL, SITTING, DRIVING Better: LYING DOWN, BEING ON THE MOVE, WORKING (EXCEPT DRIVING), LAST INJECTION, ALEVE, CHANGE OF POSITION Disturbed sleep: NEEDS TO ADJUST POSITION TO FIND A COMFORTABLE POSITION - SOMETIMES CAN'T GET COMFORTABLE. SOMETIMES WAKES UP WITH NO PAIN BUT SOON GETS IN THE SHOWER IT STARTS HURTING. Previous history/Previous treatment: HISTORY OF CHIROPRACTIC TREATMENTS SINCE APPROX 2009 - GOT TO THE POINT IT WASN'T HELPING. STATES HE HAS BEEN AWARE SINCE 2013 HAD HAS BULGING DISCS. This episode: 2 DENNY'S AND STATES SURGERY RECOMMENDED BY DR. LAWRENCE. STATES HE CHOSE TO TRY PAIN MGMT AND PT FIRST. REPORTS HE DOES NOT WANT TO MISS WORK FOR 3 MO'S TO HAVE SURGERY. Dizziness: NO Tinnitus: CHRONIC Nausea: NO Shortness of Breath: NO Difficulty Swallowing: NO Gait: LOB ONLY WHEN UP ON TRAILER - ONLY WALKING ON TIGHT SPACES. Accidents: NO Unexplained weight loss: NO Imaging: ALL IMAGING INCLUDING NECK MRI AND X-RAYS AT [facility]. 03/19/25 CERVICAL X-RAY: IMPRESSION: Moderate degree of disc space narrowing at the C5-C6 and C6-C7 levels. 12/23/24 CERVICAL MRI: IMPRESSION: 1. Multilevel degenerative changes with varying degrees of spinal canal and neural foraminal stenosis as detailed above. 2. Moderate bilateral neural foraminal stenosis at C4-5 and C5-6. 3. Moderate spinal canal stenosis at C5-6 and C6-7. Minimal mass effect on the left ventral cervical spinal cord at C5-6. 4. Incompletely visualized right paracentral to lateral focal disc protrusion at T1-2, consider MRI thoracic spine as warranted. PMH/Recent major surgery: NIDM. DENIES H/O LUNG CANCER. History of tobacco use Encounter for screening for malignant neoplasm of lung Wears dentures Wears glasses Back pain Gastric reflux Former smoker GERD (gastroesophageal reflux disease) High cholesterol Hypertension Gout Diabetes Hx of colonoscopy Hx of tonsillectomy Hx of eye surgery Hx of hand surgery Objective Objective: Sitting Posture/Standing Posture: FAVIO FH. RSH'S L>R. NO TORTICOLIS. Active Correction of posture: BETTER. DECREASE'S PAIN. ABLE TO PARTIALLY CORRECT. DOES NOT MAINTAIN. Other Observations: INDEP GAIT AND TRANSFERS. PLEASANT AND COOPERATIVE. GOOD HISTORIAN. Sensory deficit: DEBRA UE LIGHT TOUCH SENSATION GROSSLY INTACT AND SYMMETRICAL ROM deficit: DEBRA UE ROM WFL Motor deficit: DEBRA UE STRENGTH GROSSLY 5/5 EXCEPT SHLD GIRDLES 4/5. R BOMB SQUAD OFFICER STRENGTH 60 LBS, L 54 LBS. Reflexes: DEBRA UE'S 2+ Dural Signs: NEGATIVE DEBRA UE'S. Cervical Mvmt Loss: Flex: NIL Pro: NIL Ext: MOD Ret: MOD RSB: MOD LSB: MIN TO MOD R Rot: MOD L Rot: MIN TO MOD PATIENT C/O INCREASED R SCAP REGION PAIN WITH NECK FLEXION TESTING - NW Postural strength: FAIR Balance/Special Test Scores Oswestry Neck Score: 14 Goals Goal 1:: DECREASE C/O NECK AND R UE SX'S BY AT LEAST 50% TO EASE WORK AND ADL FUNCTION Goal Time Frame: 4-6 Weeks Goal 2:: IMPROVE PERSONAL CARE, LIFTING, READING, SLEEP, WORK, DRIVING AND RECREATIONAL FUNCTION WITH AT LEAST AN 8 POINT IMPROVEMENT IN NECK OSWESTRY SCORE. Goal Time Frame: 4-6 Weeks Goal 3:: INSTRUCT IN PROPHYLAXIS Goal Time Frame: 4-6 Weeks Rehabilitation Potential Physical Therapy Diagnosis: POSTURAL AND CERVICAL STIFFNESS AND WEAKNESS WITH C/O R UE PAIN. Rehabilitation Potential: Good Anticipated Interventions Text: Thank you for the opportunity to evaluate your patient. For Medicare and Medicare HMO plans, please review the plan of care and approve it. It will need to be FAXED BACK to us at [phone] for Medicare purposes. For Medicare only, by signing this I certify the plan of care. Please let me know if there are questions or concerns regarding this plan of care. Physician Signature: Date:
--- NOTE | 2025-05-21 07:45 | HP.PTDCSUM_ITS ---
Discharge Summary D/C summary: It has been my pleasure to treat NIGEL ROJAS referred by WILMA Ferrer, with the diagnosis of CERVICAL STENOSIS AND RADICULOPATHY for a total of 8 visit(s). Discharge Date: 05/21/25 Please see the following information for a summary of their discharge status. Subjective Subjective: PATIENT REPORTS HE IS STILL DOING GOOD. NO PAIN AND NO BALANCE ISSUES. REPORTS HE HAS CHANGED HIS DIET RECENTLY PRETTY DRASTICALLY. HE REPORTS HE IS DIABETIC AND IS NOW TRYING TO COMPLETELY AVOID SUGAR. HE REPORTS HIS NECK IS DOING GREAT - NO ISSUES. REPORTS COMPLIANCE WITH TRUCK SEAT ADJUSTMENTS FOR SITTING POSTURE CHANGES AND INTERMITTENT NECK EX'S DURING THE DAY. STATES THAT IF HE GETS ANY PAIN IT IS RARE NOW AND FLEETING. Pain R MEDIAL SCAP: Pain Intensity (Out of 10): 0 R UPPER ARM: Pain Intensity (Out of 10): 0 Overall Improvement % Improvement: 95 Objective Objective/Function: PATIENT WAS SEEN TODAY FOR RE-ASSESSMENT OF PROGRESS TOWARD THE SET PT GOALS AND THE NEED FOR FURTHER PHYSICAL THERAPY VS READINESS FOR DISCHARGE. THIS PATIENT HAS MADE GREAT PROGRESS IN TERMS OF PAIN, NECK ROM, BALANCE AND UE STRENGTH. ALL PT GOALS HAVE BEEN MET AND PATIENT IS REPORTING BEING SYMPTOM FREE. UPON EXAM TODAY: INDEP GAIT AND TRANSFERS WITH GOOD BALANCE. DEBRA UE STRENGTH AND ROM IS WFL WITH R METEOROLOGICAL OBSERVER STRENGTH 81 LBS, L 66 LBS. Dural Signs: NEGATIVE DEBRA UE'S. Cervical Mvmt Loss: Flex: NIL Pro: NIL Ext: MIN Ret: MOD RSB: MIN LSB: MIN TO MOD R Rot: MIN L Rot: MIN PATIENT DENIES NECK AND SHLD BLADE PAIN WITH CERVICAL ROM TESTING ALL PLANES. Goals Goal 1:: DECREASE C/O NECK AND R UE SX'S BY AT LEAST 50% TO EASE WORK AND ADL FUNCTION Goal Progress: Goal Met Goal 2:: IMPROVE PERSONAL CARE, LIFTING, READING, SLEEP, WORK, DRIVING AND RECREATIONAL FUNCTION WITH AT LEAST AN 8 POINT IMPROVEMENT IN NECK OSWESTRY SCORE. Goal Progress: Goal Met Goal 3:: INSTRUCT IN PROPHYLAXIS Goal Progress: Goal Met Plan Plan: D/C D/C Information d/c sentence: If there are questions or concerns regarding this patient's physical therapy, please feel free to call me at [phone]. Thank you for the referral of this patient. Sincerely, Cecy Stone, PT, Cert MDT Balance/Gait/Functional tests Balance/Special Test Scores Oswestry Neck Score: 1 Improvement % Improvement: 95
== END 2025-05-21 19:00 | disposition home or self-care (01) ==
LOC: PT 07:00
PROVIDERS: PCP Nurse Practitioner Family; Referring Provider Student in an Organized Health Care Education/Training Program; Visit Provider Student in an Organized Health Care Education/Training Program
DX: M48.02 Spinal stenosis, cervical region (principal); M54.12 Radiculopathy, cervical region
CPT/HCPCS: 97110; 97112; 97140; 97162; 97530